=== PATIENT | male | born 1940 | race Caucasian/White ===

== ENCOUNTER → 2016-06-22 | Outpatient (CLI) | payer MEDICARE, BC ==
--- NOTE | 2016-06-22 17:50 | CT ---
EXAMINATION TYPE: CT sinus wo con DATE OF EXAM: 06/22/2016 5:41 PM COMPARISON: November 05, 2010 HISTORY: Facial pain, pressure and congestion CT DLP: 641.[address] of the paranasal sinuses was performed in the axial and coronal planes. Bone and soft tissue settings are submitted. Postoperative changes of medial maxillary antrectomy bilaterally as well as partial ethmoidectomy. Pe rsistent and mucosal thickening involving the maxillary sinuses without evidence for obstruction. Rem aining ethmoid air cells also demonstrate mucosal thickening. Moderate mucosal thickening is seen in the sphenoid and frontal sinuses. The nasal septum is midline. No bony destructive changes are seen within the field of view. IMPRESSION: Stable Chronic pansinusitis as discussed.
== END | disposition home or self-care (01) ==
LOC: RADCTMAIN 17:22
PROVIDERS: ATTEND Otolaryngology
DX: J32.4 Chronic pansinusitis (principal)
CPT/HCPCS: 70486

== ENCOUNTER → 2018-12-09 | Outpatient (CLI) | payer MEDICARE, BC ==
[2018-12-09 09:39] LABS: Basophils # (A) 0.1 k/uL (0-0.2); Basophils % (A) 1 %; Eosinophils # (A) 0.4 k/uL (0-0.7); Eosinophils % (A) 6 %; HCT 42.5 % (39.0-53.0); HGB 14.1 gm/dL (13.0-17.5); Lymphocytes # (A) 1.6 k/uL (1.0-4.8); Lymphocytes % (A) 26 %; MCH 30.8 pg (25.0-35.0); MCHC 33.3 g/dL (31.0-37.0); MCV 92.4 fL (80.0-100.0); Mean Platelet Volume 5.7; Monocytes # (A) 0.5 k/uL (0-1.0); Monocytes % (A) 7 %; Neutrophils # (A) 3.5 k/uL (1.3-7.7); Neutrophils % (A) 57 %; Platelet Count 283 k/uL (150-450); RBC 4.59 m/uL (4.30-5.90); RDW 12.7 % (11.5-15.5); WBC 6.2 k/uL (3.8-10.6)
[2018-12-09 09:42] LABS: INR 0.9 (<1.2); Partial Thromboplastin Time 24.9 sec (22.0-30.0); Prothrombin Time 9.9 sec (9.0-12.0)
[2018-12-09 09:56] LABS: African American GFR (CKD) >90 (>60 ml/min/1.73 sqM); Anion Gap 8 mmol/L; Blood Urea Nitrogen 27 mg/dL (9-20); Calcium 9.5 mg/dL (8.4-10.2); Carbon Dioxide 28 mmol/L (22-30); Chloride 107 mmol/L (98-107); Glucose 120 mg/dL (74-99); Potassium 4.7 mmol/L (3.5-5.1); Sodium 143 mmol/L (137-145)
[2018-12-09 10:37] LABS: Appearance,Urine Clear (Clear); Bilirubin,Urine Negative (Negative); Blood,Urine Negative (Negative); Color,Urine Yellow; Glucose,Urine (UA) Negative (Negative); Ketones,Urine Negative (Negative); Leukocyte Esterase,Urine Trace (Negative); Mucus,Urine Rare /hpf; Nitrite,Urine Negative (Negative); PH, Urine 5.5 (5.0-8.0); Protein,Urine Trace (Negative); RBC,Urine 2 /hpf (0-5); Specific Gravity,Urine 1.024 (1.001-1.035); Urobilinogen,Urine <2.0 mg/dL (<2.0); WBC,Urine 2 /hpf (0-5)
--- NOTE | 2018-12-10 10:14 | XR ---
EXAMINATION TYPE: XR chest 2V DATE OF EXAM: 12/09/2018 COMPARISON: 09/23/2016 HISTORY: Previous spinal surgery. Presurgical evaluation for severe spinal canal stenosis. TECHNIQUE: Frontal and lateral views of the chest are obtained. FINDINGS: There is no focal air space opacity, pleural effusion, or pneumothorax seen. The cardiac silhouette size is within normal limits. The osseous structures are intact. Pulmonary arteries are prominent that can be seen in pulmonary arterial hypertension. Underlying COPD is noted with flatteni ng of the diaphragms on the lateral view and increased anterior posterior diameter of the chest. Biap ical lucency and increased retrosternal airspace also noted. Moderate degenerative changes of the spi ne. IMPRESSION: 1. COPD and enlarged pulmonary artery suggesting pulmonary arterial hypertension. 2. No acute cardiopulmonary process.
== END | disposition home or self-care (01) ==
LOC: LABPAT 08:52
PROVIDERS: ATTEND Orthopaedic Surgery Orthopaedic Surgery of the Spine
DX: Z01.812 Encounter for preprocedural laboratory examination (principal); Z01.818 Encounter for other preprocedural examination; M48.00 Spinal stenosis, site unspecified; J44.9 Chronic obstructive pulmonary disease, unspecified; I77.89 Other specified disorders of arteries and arterioles
CPT/HCPCS: 36415; 71046; 80048; 81001; 85025; 85610; 85730

== ENCOUNTER 2018-12-18 11:14 | Day surgery (SDC) | payer MEDICARE, BC ==
[~2018-12-18 11:14] MED LIST: BACITRACIN 50,000 UNIT, POLYMYXIN B 500,000 UNIT in SODIUM CHLORIDE 0.9% IRRIGATIO 1,00... IRRIGATION ONE; LIDOCAINE 1% 20 ML VIAL (10MG/ML) FOR IV START INTRADERMA PRN; ONDANSETRON 4 MG/2 ML VIAL IVP ONE
[2018-12-18] MEDS: LACTATED RINGERS 1,000 ML IV SCH (12:06)
[2018-12-18] MEDS ORDERED: LIDOCAINE 1% INJ 10MG/ML (20 ML MDV) ONE (13:04)
[2018-12-18] MEDS ORDERED: MIDAZOLAM 2 MG/2 ML VIAL ONE (13:04)
[2018-12-18] MEDS ORDERED: NEOSTIGMINE 1 MG/ML 10 ML VIAL ONE (13:04)
[2018-12-18] MEDS ORDERED: PHENYLEPHRINE-0.9% NACL SYG 1 MG/10 ML SYRINGE ONE (13:04)
[2018-12-18] MEDS ORDERED: SUCCINYLCHOLINE CHLORIDE 100 MG/5 ML SYR IV ONE (13:04)
[2018-12-18] MEDS ORDERED: GLYCOPYRROLATE 0.2 MG/ML 2 ML VIAL ONE (13:04)
[2018-12-18] MEDS ORDERED: PROPOFOL 10 MG/ML 20 ML VIAL IV ONE (13:04)
[2018-12-18] MEDS ORDERED: ROCURONIUM BROMIDE 10 MG/ML 10 ML VIAL IV ONE (13:04)
[2018-12-18] MEDS ORDERED: fentaNYL (PF) 50 MCG/ML 2 ML AMP ONE (13:04)
[2018-12-18] MEDS ORDERED: LIDOCAINE 0.5%-EPI 1:200,000 50 ML VIAL SQ ONE ×2 (13:06)
[2018-12-18] MEDS ORDERED: methylPREDNISolone ACETATE 80 MG/ML 1 ML VIAL INJ ONE (13:06)
[2018-12-18] MEDS ORDERED: GELATIN SPONGE,ABSORB (LARGE) 1 EACH SPONGE TOPICAL ONE (13:06)
[2018-12-18] MEDS ORDERED: BUPIVACAINE (PF) 0.25% 30 ML VIAL SQ ONE (13:06)
[2018-12-18] MEDS ORDERED: THROMBIN (BOVINE) 5,000 UNIT VIAL TOPICAL ONE ×2 (13:07)
[2018-12-18] MEDS ORDERED: LACTATED RINGERS 1,000 ML IV ONE (13:48)
--- NOTE | 2018-12-18 14:07 | XR ---
Fluoroscopy INDICATION: Pain FINDINGS: Fluoroscopy time: 1 seconds. Images obtained: One. IMPRESSIONS: 1. Documentation of fluoroscopy.
[2018-12-18] MEDS ORDERED: KETOROLAC 30 MG/ML 1 ML VIAL IVP PRN (15:12)
[2018-12-18] MEDS ORDERED: HYDROmorphone 1 MG/ML 1 ML SYRINGE IVP PRN (15:12)
[2018-12-18] MEDS ORDERED: HYDROcodone/APAP 5-325MG 1 EACH TAB PO PRN (15:12)
[2018-12-18] MEDS ORDERED: IBUPROFEN 600 MG TAB PO PRN (15:12)
[2018-12-18] MEDS ORDERED: HYDROmorphone 0.5 MG/0.5 ML SYRINGE IVP PRN (15:12)
[2018-12-18] MEDS ORDERED: BENZOCAINE/MENTHOL LOZENG 1 EACH LOZENGE MUCOUS MEM PRN (15:12)
[2018-12-18] MEDS ORDERED: MAGNESIUM HYDROXIDE 2,400 MG/10 ML CUP PO PRN (15:12)
[2018-12-18] MEDS ORDERED: ONDANSETRON 4 MG/2 ML VIAL IVP ONE (15:12)
[2018-12-18] MEDS ORDERED: amLODIPine 2.5 MG TAB PO PRN (15:15)
[2018-12-18] MEDS ORDERED: Acetaminophen-Codeine 300-30mg TAB PO PRN (15:15)
--- NOTE | 2018-12-18 15:21 | P.OP ---
Date of Procedure: 12/18/18 Preoperative Diagnosis: Severe spinal stenosis L2-3 and L3 4 L4 5, neurogenic claudication bilateral lower extremities, lower extremity radiculopathy, facet arthrosis, degenerative disc disease Postoperative Diagnosis: Same Anesthesia: GETA Pathology: none sent Condition: stable Disposition: PACU Description of Procedure: DESCRIPTION OF PROCEDURE(S): BRIEF OPERATIVE NOTE Preoperative Diagnosis: Severe spinal stenosis L2-3 and L3 4 L4 5, neurogenic claudication bilateral lower extremities, lower extremity radiculopathy, facet arthrosis, degenerative disc disease Postoperative Diagnosis: Same Procedure: Laminectomy and decompression bilaterally with wide bilateral foraminotomy and partial medial facetectomy L2-3 L3 4 L4 5 Placement of interlaminar stabilized device (Coflex device L3 4 L4 5) Use of fluoroscopic guidance Surgeon: Dr. Parham Manager Vehicle: Jefferson SAPP who is present throughout the entire the case persistence during positioning, dissection, exposure, visualization, and all crucial elements of the case as well as closure. Anesthesia: General anesthesia Estimated blood loss: Approximately 200 mL Complications: None apparent Components implanted: Paradigm Coflex interlaminar stabilization device at L3 4 and L4 5 size 10 Disposition: To recovery room in good stable condition. OPERATIVE INDICATIONS The patient has been having issues in their lower back and lower extremities. The patient was having evidence of neurogenic claudication and spinal stenosis along with issues with lower extremity radiculopathy. The patient was having worsening trouble at his back and lower extremities particularly in his lower extremity is with neurogenic claudication where he was having great difficulty with any walking more than a follow-up few moments at the time. He was having to bend forward sit and lean forward more and more and this was causing him severe debility. The patient was found to have severe spinal stenosis at L2-3 L3 4 and L4 5 which correlated well with their low back and lower extremity symptoms. The patient has been through conservative treatment. Despite going through conservative treatment the patient was not having any lasting benefit and was having worsening of his symptoms and worsening debility. With their imaging, and the level of their stenosis and their propensity for the possibility of recurrent stenosis I felt that decompression with intralaminar stabilization would be a good benefit for the patient. We discussed various treatment options including surgery, and the patient wishes to proceed with surgery We discussed the risk, patient's alternatives and benefits of surgery including but not limited to, risk of bleeding risk of infection, risk of need for further surgery, risk of decreased, loss of motion, loss of function, nerve damage, paralysis, heart attack, blindness and . OPERATIVE SUMMARY After discussing all the risks, patient alternatives and benefits at length, the patient elected to proceed with surgical intervention, signed informed consent, and presented for their procedure. The patient was seen and examined in the preoperative holding area and the surgical site was marked. The patient was given antibiotics and brought to the operating room. The patient was sedated and intubated by anesthesia in standard fashion. The patient was positioned on to the operating room table in a prone position on the appropriate frame which was well-padded and well molded. We were careful to pad any bony prominences and pressure points. We were careful to maintain the patient's cervical spine and good neutral alignment and position throughout. The patient was prepped and draped in a normal standard fashion. An appropriate timeout and keystone protocol performed. We were able to proceed with the surgery. Fluoroscopy was utilized to establish the appropriate level. The local wound area was infiltrated with local anesthetic. An incision was made at the midline longitudinally over the appropriate levels at L23 L3 4 and L4 5. Dissection was taken down subcutaneously to the level of the fascia which was split midline. Dissection was taken over the lamina. Intraoperative fluoroscopy was taken which showed a marker at the appropriate level at L3 4. With the appropriate level positively confirmed, we were able to proceed with laminectomy. The wound was copiously irrigated and suctioned dry as had been done periodically throughout the case. I performed a laminectomy with a combination of curettes and a high-speed bur and Kerrison rongeurs. A small medial facetectomy was performed again further access. This was done bilaterally at that level. A partial foraminotomy was also performed. Portions of the ligamentum flavum were taken down to expose the dura and traversing nerve root. The patient was found to have severe central and bilateral foraminal stenosis with severe thickening of the ligamentum and thickening of the capsule around the facet joints. All this was remedied with the decompression centrally and at the bilateral neural foramen. There is no evidence of extruded disc herniation. There is no evidence of dural tear or leak. Good hemostasis maintained. The wound was copiously irrigated and suctioned dry. Good decompression was noted. At this point further prepared the interspinous process and interlaminar space with a combination of curettes and a high-speed bur and Kerrison rongeurs. I prepared for placement of the interlaminar to basis at L4 5 and L3 4. I was able get good parallel alignment at the interspinous process space and interlaminar space. I used a trial spacer for the Coflex device and have good fit and fill with the appropriate size device. I had to shave down the spinous process at to allow for appropriate positioning of the Coflex device. The device was prepared and then positioned and malleted in position with good alignment and good position and good bony purchase at the interlaminar space. The position was checked and found to be approximately 3 mm away from the dura without impingement on the dura itself. It was checked and found to be stable. Intraoperative C-arm was utilized to confirm the alignment and position at the appropriate levels at L4 5 and then at L3 4. We were able to proceed with closure. The fascia was closed for a watertight closure. The subcuticular tissue was closed with absorbable suture. The wound was cleaned and dried and dressed with the appropriate dressing. The drapes were broken down. The patient was gently rolled back onto their hospital bed being careful to maintain their cervical spine and good neutral alignment and position. They were woken up by anesthesia, extubated, and brought to the recovery room in good stable condition. The patient will be admitted to the hospital for observation and for appropriate postoperative care, medical management and monitoring. We will continue to follow them closely about the postoperative course
[2018-12-18] MEDS: HYDROmorphone 0.5 MG/0.5 ML SYRINGE IVP PRN ×2 (15:46→16:07)
[2018-12-18] MEDS ORDERED: KETOROLAC 30 MG/ML 1 ML VIAL IVP ONE (15:50)
[2018-12-18] MEDS ORDERED: SODIUM CHLORIDE 0.9% 1,000 ML IV ONE (17:07)
[2018-12-18] MEDS: SODIUM CHLORIDE 0.9% 1,000 ML IV SCH (18:19)
[2018-12-18] MEDS: HYDROcodone/APAP 5-325MG 1 EACH TAB PO PRN ×2 (18:45→23:51)
[2018-12-18 19:01] VITALS: BMI 27.6
[2018-12-18] MEDS: LABETALOL 200 MG TAB PO SCH (20:08)
[2018-12-18] MEDS ORDERED: ATORVASTATIN 40 MG TAB PO SCH (21:00)
[2018-12-19] MEDS: LACTATED RINGERS 1,000 ML IV SCH (04:20)
[2018-12-19] MEDS: SODIUM CHLORIDE 0.9% 1,000 ML IV SCH (05:18)
[2018-12-19 07:56] VITALS: RESP 18
[2018-12-19] MEDS: LABETALOL 200 MG TAB PO SCH (08:26)
[2018-12-19] MEDS ORDERED: TAMSULOSIN 0.4 MG CAP.ER.24H PO SCH (09:00)
[2018-12-19] MEDS ORDERED: amLODIPine 5 MG TAB PO SCH (09:00)
[2018-12-19] MEDS ORDERED: SENNOSIDES-DOCUSATE SODIUM 1 EACH TAB PO SCH (09:00)
[2018-12-19] MEDS: HYDROcodone/APAP 5-325MG 1 EACH TAB PO PRN (09:47)
[2018-12-19 11:36] VITALS: BP 134/63
[2018-12-19 11:40] VITALS: TEMP 97.8
[2018-12-19 12:47] VITALS: PULSE 66
--- NOTE | 2018-12-19 13:00 | P.DS ---
Providers Date of admission: 12/18/2018 Expected date of discharge: 12/19/18 Attending physician: Kath Parham Primary care physician: Nikko Sultana - Discharge Diagnosis(es) (1) Lumbar spinal stenosis Current Visit: Yes Status: Acute (2) Neurogenic claudication due to lumbar spinal stenosis Current Visit: Yes Status: Acute (3) Radiculopathy with lower extremity symptoms Current Visit: Yes Status: Acute (4) Low back pain Current Visit: Yes Status: Acute (5) Lumbar facet arthropathy Current Visit: Yes Status: Acute Hospital Course: This is a pleasant 77-year-old male who presented with L2-3, L3-4, and L4-5 severe spinal canal stenosis, neurogenic claudication of the bilateral lower extremities, lumbar facet arthrosis, lumbar degenerative disc disease, and lower extremity radiculopathy who failed outpatient conservative therapy. He was admitted for L2-3, L3-4, and L4-5 laminectomy and decompression with placement of interlaminar stabilization device at L3-4 and L4-5. The patient tolerated the procedure well and did well postoperatively. He's had significant improvement of his lower extremity radiculopathy symptoms. He's been able to cannulate the hallway in the restroom. He does have some pain at the surgical site the states pain is significantly improved as compared to his pain prior to surgical intervention. He is very happy with his progress postoperatively. He is ready for discharge. Condition on day of discharge stable. Patient will be discharged home. Patient was cleared preoperatively for surgery by Dr. Sultana. Patient currently denies any nausea, vomiting, fever, or chills. Patient is eating and voiding freely without difficulty. Patient may shower Tegaderm and silver dressing intact. Patient may remove Tegaderm and silver dressing in 3 days and shower without a dressing at that time. Patient should refrain from driving until at least after their first follow-up appointment in the office. Patient should avoid excessive bending, lifting, and twisting; no lifting greater than 10 pounds. MAPS has been reviewed today, 12/19/2018, with an Overall Overdose Risk Score of 200. An "Opiod Start Talking" Forn has been signed by the patient and myself in place in the patient's chart. A prescription has been written for Hernandez 5 mg/325 mg 1-2 tabs every 6 hours as needed for pain, dispensed #56. Patient should avoid anti-inflammatories over the next 6 weeks postoperatively. Patient should discontinue previously prescribed Tylenol #3 with codeine. Patient may resume other previously prescribed home medications. Physical Exam on day of discharge: Patient is awake, alert, and oriented 3 Vital signs stable Good chest excursion with deep inspiration and expiration Abdomen soft nontender No signs or symptoms of DVT; no calf pain Extensor hallucis longus, plantarflexion, and dorsiflexion positive sustained left lower extremity Reduced range of motion with dorsiflexion and plantarflexion on the right following previous ankle fusion Incision is clean, dry, and intact; no erythema, purulence, or signs of infection Tegaderm and silver dressing remains intact with 1 small dried spot of blood No active drainage from the incision site Procedures: L2-3, L3-4, and L4-5 laminectomy and decompression with placement of interlaminar stabilization device at L3-4 and L4-5. Patient Condition at Discharge: Stable Plan - Discharge Summary Discharge Rx Participant: Yes New Discharge Prescriptions: New Hydrocodone/Acetaminophen [Hernandez 5-325] 1 - 2 each PO Q6HR PRN #56 tab PRN Reason: Pain No Action Acetaminophen-Codeine 300-30mg [Tylenol w/codeine #3] 1 tab PO Q6H PRN PRN Reason: Pain Tamsulosin HCl [Flomax] 0.4 mg PO DAILY Simvastatin [Zocor] 80 mg PO HS Labetalol [Trandate] 200 mg PO BID Ibuprofen [Motrin] 800 mg PO DAILY PRN PRN Reason: Pain amLODIPine [Norvasc] 2.5 mg PO BID PRN PRN Reason: bp >160/90 amLODIPine [Norvasc] 5 mg PO DAILY Discharge Medication List Acetaminophen-Codeine 300-30mg [Tylenol w/codeine #3] 1 tab PO Q6H PRN 12/08/18 [History] Ibuprofen [Motrin] 800 mg PO DAILY PRN 12/08/18 [History] Labetalol [Trandate] 200 mg PO BID 12/08/18 [History] Simvastatin [Zocor] 80 mg PO HS 12/08/18 [History] Tamsulosin HCl [Flomax] 0.4 mg PO DAILY 12/08/18 [History] amLODIPine [Norvasc] 2.5 mg PO BID PRN 12/08/18 [History] amLODIPine [Norvasc] 5 mg PO DAILY 12/08/18 [History] Hydrocodone/Acetaminophen [Hernandez 5-325] 1 - 2 each PO Q6HR PRN #56 tab 12/19/18 [Rx] Follow up Appointment(s)/Referral(s): Jefferson Alvarenga, RACHNA [PHYSICIAN WASTE TREATMENT OPERATOR] - 2 Weeks (Patient may follow-up with Jefferson Alvarenga PA-C or Dr. Jose Parham at [facility] in 2-3 weeks following discharge. ) Activity/Diet/Wound Care/Special Instructions: 1. Patient may shower with Tegaderm and silver dressing intact. 2. Patient may remove Tegaderm and silver dressing in 3 days and shower without a dressing at that time. 3. Patient should keep Steri-Strips intact and allow them to fall off naturally. 4. Patient should refrain from driving until at least after their first follow- up appointment in the office. 5. Patient should avoid excessive bending, twisting, and lifting; no lifting greater than 10 pounds 6. Take medications as prescribed 7. Do not soak in tub Discharge Disposition: HOME SELF-CARE
== END 2018-12-19 13:35 | disposition home or self-care (01) ==
LOC: OR 11:14 → 4MS4W 17:20 → 3NMEDONC 17:48 → OR 12-19 13:35
PROVIDERS: ATTEND Orthopaedic Surgery Orthopaedic Surgery of the Spine
DX: M48.062 Spinal stenosis, lumbar region with neurogenic claudication (principal); M51.16 Intervertebral disc disorders with radiculopathy, lumbar region; M47.16 Other spondylosis with myelopathy, lumbar region; M41.26 Other idiopathic scoliosis, lumbar region; M43.16 Spondylolisthesis, lumbar region; M70.61 Trochanteric bursitis, right hip; M16.0 Bilateral primary osteoarthritis of hip; M47.27 Other spondylosis with radiculopathy, lumbosacral region; I10 Essential (primary) hypertension; E78.5 Hyperlipidemia, unspecified; N40.0 Benign prostatic hyperplasia without lower urinary tract symptoms; K30 Functional dyspepsia; Z87.891 Personal history of nicotine dependence; Z90.49 Acquired absence of other specified parts of digestive tract; Z79.891 Long term (current) use of opiate analgesic; Z79.899 Other long term (current) drug therapy
CPT/HCPCS: 97162; 72020; 63047; C1713; J2250; J1040; J2710; J0690 ×2; J2405; J2001; J3010; J1885; J2370; J0330; J2704; J1170; 86850; 86900; 86901

== ENCOUNTER → 2018-12-28 | Outpatient (CLI) | payer MEDICARE, BC ==
--- NOTE | 2018-12-28 15:01 | XR ---
EXAMINATION TYPE: XR chest 2V DATE OF EXAM: 12/28/2018 COMPARISON: 12/09/2018 HISTORY: Shortness of breath TECHNIQUE: Frontal and lateral views of the chest are obtained. FINDINGS: Scattered senescent parenchymal changes noted. Hyperinflation compatible with COPD. No evidence for infiltrate. No evidence for atelectasis. Heart size is stable. Mediastinal structures are stable and grossly unremarkable. No evidence for hilar prominence. Degenerative changes dorsal spine. IMPRESSION: 1. No evidence for acute pulmonary disease.
== END | disposition home or self-care (01) ==
LOC: LABWHC1 13:15
PROVIDERS: ATTEND Nurse Practitioner Family
DX: J40 Bronchitis, not specified as acute or chronic (principal)
CPT/HCPCS: 71046

== ENCOUNTER → 2019-06-25 | Outpatient (CLI) | payer MEDICARE, BC ==
[2019-06-25 11:25] LABS: African American GFR (CKD) >90 (>60 ml/min/1.73 sqM); Anion Gap 10 mmol/L; Blood Urea Nitrogen 17 mg/dL (9-20); Carbon Dioxide 22 mmol/L (22-30); Chloride 108 mmol/L (98-107); Non-African American GFR(CKD) 81 (>60 ml/min/1.73 sqM); Potassium 4.7 mmol/L (3.5-5.1); Sodium 140 mmol/L (137-145)
[2019-06-25 11:29] LABS: HCT 44.7 % (39.0-53.0); HGB 13.9 gm/dL (13.0-17.5); Hypochromasia Slight; MCH 29.2 pg (25.0-35.0); MCHC 31.2 g/dL (31.0-37.0); MCV 93.7 fL (80.0-100.0); Mean Platelet Volume 7.5; Platelet Count 231 k/uL (150-450); RBC 4.78 m/uL (4.30-5.90); RDW 13.9 % (11.5-15.5); WBC 7.3 k/uL (3.8-10.6)
== END | disposition home or self-care (01) ==
LOC: LABWHC1 09:48
PROVIDERS: ATTEND Internal Medicine Interventional Cardiology
DX: Z01.818 Encounter for other preprocedural examination (principal); R94.39 Abnormal result of other cardiovascular function study; R97.20 Elevated prostate specific antigen [PSA]
CPT/HCPCS: 36415; 80051; 82565; 84153; 84520; 85027

== ENCOUNTER → 2021-10-14 | Outpatient (CLI) | payer MEDICARE, BC ==
--- NOTE | 2021-10-14 11:10 | US ---
EXAMINATION TYPE: US venous doppler duplex LE LT DATE OF EXAM: 10/14/2021 10:57 AM COMPARISON: NONE CLINICAL HISTORY: 80-year-old male I80.9 Phlebitis and thrombophlebitis of unspecifie. LEFT knee surg jaylin with new left post calf pain SIDE PERFORMED: left TECHNIQUE: The lower extremity deep venous system is examined utilizing real time linear array sonog dayan with graded compression, doppler sonography and color-flow sonography. VESSELS IMAGED: Common Femoral Vein Deep Femoral Vein Greater Saphenous Vein * Femoral Vein Popliteal Vein Small Saphenous Vein * Proximal Calf Veins (* superficial vessels) Left Leg: Negative for left lower extremity DVT imaged from the groin to the upper calf. Within the left pop fossa there is a 5.9 x 3.1 x 1.7cm mildly complex Jackson's cyst. Scanned the medial posterior left calf at the patient's area of pain, there is a 12.0 x 2.5 x 3.9cm probable intramuscular elongated fluid collection, that may be located along an intramuscular fascial plane. IMPRESSION: 1. No evidence for DVT within the left lower extremity imaged from the groin to the upper calf. 2. A moderate sized 5.9 x 3.1 cm Jackson's cyst. 3. However, in addition, further scanning at the patient's pain lower down along the medial posterior calf shows a second 12.0 x 3.9 x 2.5 cm elongated fluid collection that may be intramuscular or loca vik along an intramuscular fascial plane. This could represent sequela of a previously ruptured Jackson cyst or a hematoma. Clinically correlate to exclude infective fluid. If further imaging assessment i s desired, MRI can be considered.
== END | disposition home or self-care (01) ==
LOC: RADUSWWP 10:34
PROVIDERS: ATTEND Orthopaedic Surgery
DX: I80.9 Phlebitis and thrombophlebitis of unspecified site (principal)

== ENCOUNTER → 2022-05-17 | Outpatient (CLI) | payer MEDICARE ==
[2022-05-17 14:39] LABS: HCT 43.9 % (39.6-50.0); HGB 13.3 g/dL (13.0-17.0); MCH 27.5 pg (27.0-32.0); MCHC 30.3 g/dL (32.0-37.0); MCV 90.9 fL (80.0-97.0); Mean Platelet Volume 10.3 fL (9.5-12.2); NRBC Per 100 WBC 0 /100 WBCS (0.0-0.0); Platelet Count 239 X 10*3/uL (140-440); RBC 4.83 X 10*6/uL (4.40-5.60); RDW 14.6 % (11.5-14.5); WBC 14.44 X 10*3/uL (4.50-10.00)
[2022-05-17 16:08] LABS: African American GFR (CKD) 64.9 (60.0-200.0); Anion Gap 14.5 mmol/L (10.00-18.00); Blood Urea Nitrogen 22.1 mg/dL (9.0-27.0); Carbon Dioxide 25.5 mmol/L (20.0-27.5); Potassium 4.5 mmol/L (3.5-5.5)
== END | disposition home or self-care (01) ==
LOC: LABPAT 09:58
PROVIDERS: ATTEND Internal Medicine Clinical Cardiac Electrophysiology
DX: Z01.812 Encounter for preprocedural laboratory examination (principal); I48.19 Other persistent atrial fibrillation
CPT/HCPCS: 80051; 82565; 84520; 85027

== ENCOUNTER 2022-07-27 08:46 | Day surgery (SDC) | payer MEDICARE ==
[2022-07-22 11:08] VITALS: BMI 27.8
[2022-07-27] MEDS ORDERED: LACTATED RINGERS 1,000 ML IV ONE (09:41)
[2022-07-27 09:49] VITALS: TEMP 97.7
[2022-07-27] MEDS ORDERED: LIDOCAINE 2% INJ 20 MG/ML (2 ML VIAL) ONE (10:20)
[2022-07-27] MEDS ORDERED: PROPOFOL 10 MG/ML 20 ML VIAL IV ONE (10:20)
[2022-07-27 10:24] LABS: Calcium 9.2 mg/dL (8.4-10.2); Potassium 4.5 mmol/L (3.5-5.1)
[2022-07-27 10:28] VITALS: RESP 16
[2022-07-27] MEDS ORDERED: hydrALAZINE HCL 25 MG TAB PO STA (12:51)
[2022-07-27 13:39] VITALS: BP 153/79; PULSE 65
--- NOTE | 2022-07-28 01:02 | ECHOT ---
TRANSESOPHAGEAL ECHOCARDIOGRAM INDICATIONS: Persistent atrial fibrillation. PROCEDURE: Transesophageal echo. INDICATIONS: Persistent atrial fibrillation to rule out intracardiac thrombus. DESCRIPTION OF PROCEDURE: After obtaining informed consent, transesophageal echocardiogram was performed in left lateral position using an Omniplane probe. Local and IV sedation were obtained by the magazine grinder loader. The patient tolerated the procedure well without any obvious immediate complications. FINDINGS: 1. There is no intracardiac thrombus within the left atrial appendage, left atrium, right atrium, right ventricle, or left ventricle. 2. Left ventricle has normal size and systolic function. 3. Left atrium appears moderate to severely enlarged. 4. Right atrium appears enlarged. 5. Interatrial septum, there is no evidence of mboh-rk-orrex shunt by color-flow Doppler or [id number]-[id number] shunt by agitated saline contrast study. 6. Mitral valve shows mitral annular calcification with mild central mitral regurgitation. 7. Tricuspid valve shows moderate tricuspid regurgitation. 8. Aortic valve is a 3-leaflet valve, there is no evidence of aortic stenosis or regurgitation. 9. Aortic root measures within normal limits. CONCLUSION: 1. No intracardiac thrombus. 2. Normal LV systolic function. 3. Mild mitral and moderate tricuspid regurgitation. PLAN: The patient will undergo cardioversion. MMODL / IJN: [id number] /
--- NOTE | 2022-07-28 08:15 | PCN ---
PROCEDURE NOTE Cardioversion Note. INDICATIONS: Persistent atrial fibrillation. PROCEDURE NOTE: After obtaining informed consent, cardioversion was performed with 150 joules of synchronized DC current. He converted to sinus rhythm following a single shock. The patient was sedated by the spot billing clerk. An intracardiac thrombus was ruled out by transesophageal echo and the patient is adequately anticoagulated by Eliquis. PLAN: The patient will continue the anticoagulant and will have followup with Dr. ALEXEY Hickey, his primary principal consulting engineer. MMODL / IJN: [id number] /
== END 2022-07-27 14:00 | disposition home or self-care (01) ==
LOC: OR 08:46
PROVIDERS: ATTEND Internal Medicine Cardiovascular Disease
DX: I48.19 Other persistent atrial fibrillation (principal); I08.1 Rheumatic disorders of both mitral and tricuspid valves; I10 Essential (primary) hypertension; E78.5 Hyperlipidemia, unspecified; N40.0 Benign prostatic hyperplasia without lower urinary tract symptoms; Z86.73 Personal history of transient ischemic attack (TIA), and cerebral infarction without residual deficits; Z79.899 Other long term (current) drug therapy; Z79.01 Long term (current) use of anticoagulants
CPT/HCPCS: 93312; 93320; 93325; 92960; 80048; J2704; J2001

== ENCOUNTER → 2022-08-20 | Outpatient (CLI) | payer MEDICARE ==
[2022-08-20 21:38] LABS: HCT 47.1 % (39.6-50.0); HGB 13.5 d/dL (12.0-15.0); MCH 26.1 pg (27.0-32.0); MCHC 28.7 d/dL (32.0-37.0); MCV 90.9 FL (80.0-97.0); Mean Platelet Volume 11.1 FL (9.5-12.2); NRBC Per 100 WBC 0 X 10*3/uL (0.00-0.01); Platelet Count 254 X 10*3/uL (140-440); RBC 5.18 X 10*6/uL (4.40-5.60); RDW 15.8 % (11.5-14.5); WBC 8.98 X 10*3/uL (4.50-10.00)
[2022-08-20 22:45] LABS: Blood Urea Nitrogen 22.2 mg/dL (9.0-27.0); Chloride 107 mmol/L (96-109); Potassium 4.9 mmol/L (3.5-5.5); Sodium 145 mmol/L (135-145)
== END | disposition home or self-care (01) ==
LOC: LABPAT 10:46
PROVIDERS: ATTEND Internal Medicine Clinical Cardiac Electrophysiology
DX: Z01.812 Encounter for preprocedural laboratory examination (principal); I48.19 Other persistent atrial fibrillation
CPT/HCPCS: 36415; 80051; 82565; 84520; 85027

== ENCOUNTER 2022-08-23 12:11 | Day surgery (SDC) | payer MEDICARE ==
[~2022-08-23 12:11] MED LIST changes: -BACITRACIN 50,000 UNIT, POLYMYXIN B 500,000 UNIT in SODIUM CHLORIDE 0.9% IRRIGATIO 1,00... IRRIGATION ONE; +CLINDAMYCIN 900 MG in DEXTROSE 5% IN WATER 50 ML IVPB PRN; +HYDROmorphone 0.5 MG/0.5 ML SYRINGE IVP PRN; +LACTATED RINGERS 1,000 ML IV SCH; -LIDOCAINE 1% 20 ML VIAL (10MG/ML) FOR IV START INTRADERMA PRN; +MIDAZOLAM 2 MG/2 ML VIAL IV PRN; +SODIUM CHLORIDE 0.9% 1,000 ML IV SCH
[2022-08-23 13:20] LABS: Basophils % (A) 0 %; Eosinophils # (A) 0.4 k/uL (0-0.7); Eosinophils % (A) 5 %; Lymphocytes # (A) 1.9 k/uL (1.0-4.8); Lymphocytes % (A) 22 %; MCH 27.5 pg (25.0-35.0); MCHC 31.8 g/dL (31.0-37.0); MCV 86.6 fL (80.0-100.0); Mean Platelet Volume 8.1; Monocytes # (A) 0.8 k/uL (0-1.0); Monocytes % (A) 9 %; Neutrophils # (A) 5.3 k/uL (1.3-7.7); Neutrophils % (A) 62 %; Platelet Count 209 k/uL (150-450); RBC 5.08 m/uL (4.30-5.90); RDW 15.1 % (11.5-15.5); WBC 8.6 k/uL (3.8-10.6)
[2022-08-23] MEDS ORDERED: PHENYLEPHRINE-0.9% NACL SYG 1,000 MCG/10 ML SYRINGE ONE (15:15)
[2022-08-23] MEDS ORDERED: HEPARIN SODIUM,PORCINE 10,000 UNIT/ML 1 ML VIAL ONE (15:15)
[2022-08-23] MEDS ORDERED: ROCURONIUM 10 MG/ML (5 ML VIAL) IV ONE (15:15)
[2022-08-23] MEDS ORDERED: PROPOFOL 10 MG/ML 20 ML VIAL IV ONE (15:15)
[2022-08-23] MEDS ORDERED: NEOSTIGMINE 1 MG/ML 10 ML VIAL ONE (15:15)
[2022-08-23] MEDS ORDERED: LIDOCAINE 2% INJ 20 MG/ML (2 ML VIAL) ONE (15:15)
[2022-08-23] MEDS ORDERED: PROTAMINE SULFATE 10 MG/ML 5 ML VIAL IV ONE (15:15)
[2022-08-23] MEDS ORDERED: SUCCINYLCHOLINE CHLORIDE 200 MG/10 ML VIAL IV ONE (15:15)
[2022-08-23] MEDS ORDERED: fentaNYL (PF) 50 MCG/ML 2 ML AMP ONE (15:15)
[2022-08-23] MEDS ORDERED: GLYCOPYRROLATE 0.2 MG/ML 2 ML VIAL ONE (15:15)
[2022-08-23] MEDS ORDERED: LIDOCAINE 1% INJ 10MG/ML (20 ML MDV) ONE (15:28)
[2022-08-23] MEDS ORDERED: HEPARIN SOD,PORK IN 0.45% NACL 25,000 UNIT in 0.45% NACL 1 250ML.BAG IV ONE (15:45)
[2022-08-23] MEDS ORDERED: LIDOCAINE 1% INJ 10MG/ML (30 ML VIAL-PF) SQ ONE (15:45)
[2022-08-23] MEDS ORDERED: HEPARIN SODIUM 1,000 UN/ML (10ML VL) ONE (15:45)
[2022-08-23] MEDS ORDERED: IOPAMIDOL-370 100ML BTL INJ ONE (17:43)
[2022-08-23] MEDS ORDERED: LACTATED RINGERS 1,000 ML IV ONE (17:55)
[2022-08-23] MEDS ORDERED: SODIUM CHLORIDE 0.9% 1,000 ML IV ONE (17:55)
[2022-08-23] MEDS ORDERED: HEPARIN SODIUM (1,000 UNIT/ML) 1,000 UNIT in SODIUM CHLORIDE 0.9% 1,000 ML IRRIGATION ONE (18:09)
[2022-08-23] MEDS ORDERED: hydrALAZINE HCL 25 MG TAB PO PRN (19:21)
[2022-08-23] MEDS ORDERED: ACETAMINOPHEN TAB 325 MG TAB PO PRN (19:23)
--- NOTE | 2022-08-23 19:31 | P.EPPROC ---
- EP Procedure Note Electrophysiology Procedure Note: PROCEDURE A. fib ablation with pulmonary vein isolation and left atrial roof ablation, termination of atrial fibrillation Transitioning to typical atrial flutter Typical atrial flutter ablation to sinus rhythm successfully DIAGNOSIS Persistent Atrial fibrillation, symptomatic, refractory to therapy RESULT No left atrial appendage mass seen on intracardiac echo Preserved LV size and function, prominent pericardial strength Successful A. fib ablation/pulmonary vein isolation of all veins using cryo- ablation Complete entrance block in all 4 veins confirmed Linear ablation in the left atrial roof.. This resulted in termination of atrial fibrillation transitioning to typical atrial flutter No evidence for phrenic nerve injury Esophageal deflection YES Ablation for typical atrial flutter, long isthmus, long RF line made, bidirectional block proven Termination of atrial fibrillation followed by termination of atrial flutter to sinus rhythm PROCEDURE DETAILS Written informed consent prior to procedure. Patient brought to the EP lab. General anesthesia given. Heparin administered. A city maintained above 300 seconds Both groins prepped and draped per protocol and venous sheaths placed. Esophagus intubated, circa catheter for temperature monitoring an endoscope for possible esophageal deflection. Phrenic nerve monitoring performed. Esophageal temperature monitoring performed. Esophageal deflection performed if circa catheter overlapping with the balloon or circa temperature less than 27.5C Intracardiac echocardiography performed. Pericardium evaluated. Left atrial appendage evaluated. Left atrium evaluated along with pulmonary veins Transseptal catheterization performed under fluoroscopic guidance and intracardiac echo guidance Cryoablation sheath exchanged, balloon catheter along with achieve catheter placed in the left atrium. Pulmonary veins isolated in the following sequence: Left superior pulmonary vein followed by left inferior pulmonary vein, followed by right inferior pulmonary vein and lastly right superior pulmonary vein. Phrenic nerve stimulation along with capture thresholds within the SVC and right superior pulmonary vein to identify the phrenic nerve proximity to the cryo- balloon. Pulmonary veins isolated and confirmed with entrance and exit block. Phrenic nerve integrity confirmed at the end of the procedure Ablation of the left atrial roof performed with sequential lesions from the left superior to the right superior pulmonary veins. Ablation of the electrograms confirmed Once the left atrial roof was ablated, atrial fibrillation terminated and transitioned to typical atrial flutter RF ablation was performed and atrial flutter was terminated Bidirectional block was proven Isthmus conduction time greater than 176 ms The patient had a very long isthmus requiring a long RF lesion 2 different sheaths had to be used to complete this line Good contact force and power used Diagnostic catheters for the high right atrium, His bundle, coronary sinus placed. LA and RA pressures recorded RA pressure: 25/12/20 LA pressure: 38/10/24 Diagnostic EP study with coronary sinus pacing and recording Baseline measurements: Sinus cycle length 790 ms, TX interval 189 ms, QRS 97 ms and QT 328 ms H 50 ms and HV 67 ms Venous sheaths were removed and hemostasis assured with a closure device. Patient extubated and transferred to recovery Increase procedural time During ablation multiple attempts had to be made to move the esophagus a safe distance of the from the pulmonary vein draining cryoablation, to avoid excessive thermal cooling of the esophagus This took extra time and effort to keep the esophagus a safe distance away from the cryoablation balloon. Multiple attempts needed for successful cryoablation isolation of the right superior pulmonary vein and left inferior pulmonary veins Large right-sided pulmonary veins Typical atrial flutter ablation was performed once the patient transition from atrial fibrillation to atrial flutter Cavo tricuspid isthmus was very long and a very long linear ablation using RF was performed successfully PROCEDURES PERFORMED Diagnostic EP study CS pacing and recording Left and right transseptal catheterization Catheter and 3-D mapping of the tachycardia Intracardiac echocardiography Pulmonary vein isolation with transseptal and comprehensive EPS, [id number] Extended procedure duration Left atrial roof line, +[id number] Linear ablation, cavo tricuspid right atrium atrium, [id number]
--- NOTE | 2022-08-23 19:33 | P.PRLE ---
RE: Mejia Corona Dear Dr. [address] Ba from underwent an A. fib ablation with pulmonary vein isolation and linear ablation left atrial roof This resulted in termination of atrial fibrillation and transitioning to typical atrial flutter Subsequently he underwent successful typical atrial flutter ablation to sinus rhythm Hopefully this results in long-term freedom from atrial fibrillation His left and right atrial pressures are significantly enlarged even the presence of a fairly preserved LV systolic function on intracardiac echo The left atrium is enlarged The pericardium was mildly thickened suggestive of a prior pericarditis. He will continue anticoagulation and his cardiac medications as before and will follow with you and Dr. Hiceky Thank you for entrusting me with the care of the patient Warm regards Sincerely Steve Milligan
[2022-08-23] MEDS ORDERED: TAMSULOSIN 0.4 MG CAP.ER.24H PO SCH (21:00)
[2022-08-23] MEDS ORDERED: ATORVASTATIN 80 MG TAB PO SCH (21:00)
[2022-08-23] MEDS ORDERED: ACETAMINOPHEN IV (For NPO) 1,000 MG in EMPTY BAG 1 BAG IVPB ONE (21:00)
[2022-08-23] MEDS ORDERED: LOSARTAN 50 MG TAB PO SCH (21:00)
[2022-08-23] MEDS: APIXABAN 5 MG TAB PO SCH (21:28)
[2022-08-23] MEDS: METOPROLOL TARTRATE 25 MG TAB PO SCH (21:30)
[2022-08-24 07:54] VITALS: RESP 16
[2022-08-24] MEDS: METOPROLOL TARTRATE 25 MG TAB PO SCH (07:57)
[2022-08-24] MEDS: APIXABAN 5 MG TAB PO SCH (07:58)
[2022-08-24] MEDS ORDERED: CLOPIDOGREL 75 MG TAB PO SCH (09:00)
[2022-08-24] MEDS ORDERED: FUROSEMIDE 20 MG TAB PO SCH (09:00)
[2022-08-24 14:02] VITALS: BP 91/56; PULSE 64; TEMP 97.9
--- NOTE | 2022-08-24 17:54 | P.DS ---
Providers Attending physician: Steve Milligan Primary care physician: [facility] Course: Patient is doing well. No chest discomfort no dizziness no lightheadedness No undue shortness of breath He walked around the floor in the hallways with his . He is breathing well. His feels he is breathing a lot better now No dizziness No sore throat. His groins of healed well no pain no hematoma On examination is normal heart sounds normal S1 normal S2 Lungs no rhonchi no crackles Afebrile Blood pressure 139/68 mmHg Impression Persistent atrial fibrillation Termination of atrial fibrillation during ablation of the left atrial roof and transition to typical atrial flutter Successful ablation for typical atrial flutter with termination sinus rhythm Plan Continue anticoagulation lifelong Continue metoprolol tartrate 75 mg twice daily Continue losartan Follow-up with Dr. Hickey in 1-2 weeks Plan - Discharge Summary Discharge Rx Participant: No New Discharge Prescriptions: Continue Tamsulosin HCl [Flomax] 0.4 mg PO HS Atorvastatin [Lipitor] 80 mg PO HS Furosemide [Lasix] 20 mg PO DAILY Clopidogrel [Plavix] 75 mg PO DAILY Metoprolol Tartrate [Lopressor] 75 mg PO BID hydrALAZINE HCL [Apresoline] 25 mg PO TID PRN PRN Reason: BP GREATER THAN 150/88 Apixaban [Eliquis] 5 mg PO BID Losartan Potassium 50 mg PO HS Discharge Medication List Tamsulosin HCl [Flomax] 0.4 mg PO HS 12/08/18 [History] Apixaban [Eliquis] 5 mg PO BID 04/07/22 [History] Atorvastatin [Lipitor] 80 mg PO HS 04/07/22 [History] Metoprolol Tartrate [Lopressor] 75 mg PO BID 04/07/22 [History] hydrALAZINE HCL [Apresoline] 25 mg PO TID PRN 04/07/22 [History] Clopidogrel [Plavix] 75 mg PO DAILY 07/22/22 [History] Furosemide [Lasix] 20 mg PO DAILY 07/22/22 [History] Losartan Potassium 50 mg PO HS 07/22/22 [History] Follow up Appointment(s)/Referral(s): Yung Hickey MD [STAFF PHYSICIAN] - 1 Week (office will call patient ) Patient Instructions/Handouts: Cardiac Ablation (DC), Electrophysiology Study (DC) Activity/Diet/Wound Care/Special Instructions: Post EP study - Ablation instructions 1. Keep access sites dry for 2 days. 2. No heavy lifting or straining for 2 days. 3. Avoid bending the hips repeatedly for 2 days. 4. You may go up and down stairs slowly Call if the following is noted 1. Bleeding, increasing swelling or pain at the access sites. 2. Increasing chest discomfort, especially upon taking a deep breath. 3. Increasing shortness of breath, at rest or with exertion. 4. Undue cough / phlegm 5. Difficulty or pain while swallowing. 6. Pain or change in color in the extremities. 7. Fever, chills, rigors. 8. Increasing headache or neurologic symptoms. 9. Dizziness, fainting, palpitations Continue anticoagulation and cardiac medications Discharge Disposition: HOME SELF-CARE Care Plan Goals (MU): [facility] for [facility]-f[facility] and groin check
== END 2022-08-24 17:08 | disposition home or self-care (01) ==
LOC: CATHEP 12:11 → 6NMEDSUR 19:10 → CATHEP 08-24 17:08
PROVIDERS: ATTEND Internal Medicine Clinical Cardiac Electrophysiology
DX: I48.19 Other persistent atrial fibrillation (principal); I48.3 Typical atrial flutter; I44.2 Atrioventricular block, complete; I11.9 Hypertensive heart disease without heart failure; E78.5 Hyperlipidemia, unspecified; F17.210 Nicotine dependence, cigarettes, uncomplicated; I73.9 Peripheral vascular disease, unspecified; Z79.01 Long term (current) use of anticoagulants; Z79.02 Long term (current) use of antithrombotics/antiplatelets; Z79.899 Other long term (current) drug therapy
CPT/HCPCS: 93655; 93656; 93657; 86900; 86901; 85025; 86850; C1894 ×2; C1769 ×3; C1760; C1730 ×2; C1759; C1893; C1733; C1766; C1732; J2001; J1644 ×2; Q9967

== ENCOUNTER 2022-09-27 11:17 | Inpatient (IN) | payer MEDICARE ==
[2022-09-27] MEDS ORDERED: SODIUM CHLORIDE 0.9% 500 ML 500 ML IV ONE (11:47)
[2022-09-27] MEDS ORDERED: MECLIZINE 12.5 MG TAB PO STA (11:47)
--- NOTE | 2022-09-27 11:50 | ED ---
General Adult HPI - General Chief complaint: Nausea/Vomiting/Diarrhea Stated complaint: Nausea, vomiting Time Seen by Provider: 09/27/22 11:25 Source: patient, EMS, RN notes reviewed, old records reviewed Mode of arrival: EMS Limitations: no limitations - History of Present Illness Initial comments: 81-year-old male presenting for evaluation of vertigo, near syncope. Patient has had recurrent episodes over the past several years most recently 2 weeks prior. Patient did not fully lose consciousness. He felt a buzzing sensation in his had and had several episodes of vomiting prior to arrival. He has worn a cafeteria monitor which the family is uncertain of the results of this monitor. He denied any chest pain or palpitations. He has been eating and drinking normally. No fever. No trauma related to the fall today. He has had some fluctuating blood pressures and has been dealing with medication changes with his primary care provider. This has been a recurrent issue and the patient did receive echocardiogram approximately 2 weeks prior. - Related Data Home Medications Medication Instructions Recorded Confirmed Tamsulosin HCl [Flomax] 0.4 mg PO HS 12/08/18 09/14/22 Apixaban [Eliquis] 5 mg PO BID 04/07/22 09/14/22 Metoprolol Tartrate [Lopressor] 75 mg PO BID 04/07/22 09/14/22 hydrALAZINE HCL [Apresoline] 25 mg PO TID PRN 04/07/22 09/14/22 Clopidogrel [Plavix] 75 mg PO DAILY 07/22/22 09/14/22 Losartan Potassium 50 mg PO HS 07/22/22 09/14/22 Atorvastatin [Lipitor] 80 mg PO HS 09/14/22 09/14/22 Levalbuterol Hfa Inhaler [Xopenex 1 - 2 puff INHALATION RT-Q6H PRN 09/14/22 09/14/22 Hfa Inhaler] Previous Rx's Medication Instructions Recorded hydroCHLOROthiazide [Hydrodiuril] 12.5 mg PO DAILY #30 cap 09/16/22 Allergies Allergy/AdvReac Type Severity Reaction Status Date / Time cephalexin [From Keflex] Allergy Rash/Hives Verified 09/27/22 11:25 Review of Systems ROS Statement: Those systems with pertinent positive or pertinent negative responses have been documented in the HPI. ROS Other: All systems not noted in ROS Statement are negative. Past Medical History Past Medical History: Atrial Fibrillation, CVA/TIA, Hyperlipidemia, Hypertension, Pneumonia, Prostate Disorder, Skin Disorder, Vascular Disorder Additional Past Medical History / Comment(s): environmental allergies, bladder stones, blister and cellulitis issues in lower extremities , states TIA June 22 2022 no residual issues. See Dr Milligan's H& P History of Any Multi-Drug Resistant Organisms: MRSA Date of last positivie culture/infection: 02/14/20 MDRO Source:: Right Thigh Past Surgical History: Appendectomy, Back Surgery, Bowel Resection, Heart Catheterization, Orthopedic Surgery Additional Past Surgical History / Comment(s): sinus surgery x3 including deviated septum, yaneth. carotid endarterectomy, rt ankle fusion with plates and screws, pain procedures, surg. to remove bladder stones, cardioversion 2019 and a failed cardioversion 03/2022, back surg. 2018, arthroscopy left knee arch studies, back surgery 2010, VANDANA 06/2022, afib ablation 07/2022 Past Anesthesia/Blood Transfusion Reactions: Postoperative Nausea & Vomiting (PONV) Additional Past Anesthesia/Blood Transfusion Reaction / Comment(s): happened many years ago Past Psychological History: No Psychological Hx Reported Smoking Status: Former smoker Past Alcohol Use History: Occasional Past Drug Use History: None Reported - Past Family History Mother Family Medical History: Cancer Additional Family Medical History / Comment(s): breast Father Family Medical History: Cancer Additional Family Medical History / Comment(s): testicular General Exam Limitations: no limitations General appearance: alert, in no apparent distress Head exam: Present: atraumatic, normocephalic Eye exam: Present: normal appearance, PERRL ENT exam: Present: normal exam Neck exam: Present: normal inspection. Absent: tenderness Respiratory exam: Present: normal lung sounds bilaterally. Absent: respiratory distress, wheezes Cardiovascular Exam: Present: regular rate, normal rhythm GI/Abdominal exam: Present: soft. Absent: distended, tenderness, guarding Extremities exam: Present: normal inspection Neurological exam: Present: alert, oriented X3, CN II-XII intact, other (No upper extremity ataxia). Absent: motor sensory deficit Psychiatric exam: Present: normal affect, normal mood Skin exam: Present: warm, dry, intact Course Vital Signs 09/27/22 09/27/22 09/27/22 11:17 13:06 14:14 Temperature 95.7 F L Pulse Rate 74 73 81 Respiratory 18 18 16 Rate Blood Pressure 214/107 217/103 219/103 O2 Sat by Pulse 94 L 97 97 Oximetry Medical Decision Making - Medical Decision Making Was pt. sent in by a medical professional or institution (SEKOU Schneider, [employer], urgent care, hospital, or custodial...) When possible be specific @ -No Did you speak to anyone other than the patient for history (EMS, parent, family, police, friend...)? What history was obtained from this source @ -Patient's is able to give a detailed history. Did you review nursing and triage notes (agree or disagree)? Why? @ -I reviewed and agree with nursing and triage notes Were old charts reviewed (outside hosp., previous admission, EMS record, old EKG, old radiological studies, urgent care reports/EKG's, custodial records)? Report findings @ -No old charts were reviewed Differential Diagnosis (chest pain, altered mental status, abdominal pain women, abdominal pain men, vaginal bleeding, weakness, fever, dyspnea, syncope, headache, dizziness, GI bleed, back pain, seizure, CVA, palpatations, mental health, musculoskeletal)? @ Differential Syncope: Valvular disease, hypertrophic cardiomyopathy, pulmonary embolism, tamponade, tachycardia, bradycardia, [place], hypovolemia, hemorrhage, dissection, anemia, intracranial hemorrhage, seizure, hypoglycemia, carbon monoxide poisoning, this is not meant to be an all-inclusive list. EKG interpreted by me (3pts min.). @ -EKG is sinus rhythm rate of 75, DC interval 151, QRS duration 106, QTC [address] segment elevation. X-rays interpreted by me (1pt min.). @ -No acute cardiopulmonary findings CT interpreted by me (1pt min.). @ -Brain CT, negative for intracranial hemorrhage or mass effect U/S interpreted by me (1pt. min.). @ -None done What testing was considered but not performed or refused? (CT, X-rays, U/S, labs)? Why? @ -None What meds were considered but not given or refused? Why? @ -None Did you discuss the management of the patient with other professionals (professionals i.e. SEKOU Schneider, [employer], lab, RT, psych nurse, social media intern, scalemaker, teacher, customer service security officer, family caseworker)? Give summary @ -[ Sheet Was smoking cessation discussed for >3mins.? @ -No Was critical care preformed (if so, how long)? @ -No Were there social determinants of health that impacted care today? How? (Homelessness, low income, unemployed, alcoholism, drug addiction, transportation, low edu. Level, literacy, decrease access to med. care, halfway, rehab)? @ -No Was there de-escalation of care discussed even if they declined (Discuss DNR or withdrawal of care, Hospice)? DNR status @ -No What co-morbidities impacted this encounter? (DM, HTN, Smoking, COPD, CAD, Cancer, CVA, ARF, Chemo, Hep., AIDS, mental health diagnosis, sleep apnea, morbid obesity)? @ -Hypertension Was patient admitted / discharged? Hospital course, mention meds given and route, prescriptions, significant lab abnormalities, going to OR and other pertinent info. @ A 1-year-old male presenting with vertigo versus near syncope. Patient had associated vomiting and diaphoresis. He has had significant blood pressure fluctuations recently and has had several medication changes. He has no as sociated chest pain. He remains hypertensive and with associated nausea throughout his stay in the emergency department. He has a head CT which is negative for intracranial hemorrhage, normal CBC, normal CMP, negative troponin. He is in sinus rhythm. He had a recent ablation approximately one month ago. Patient will be admitted to a telemetry bed for observation. Consultations placed to both neurology and cardiology given the recurrent nature of his symptoms. He is given hydralazine in the emergency department, meclizine, IV fluids. Undiagnosed new problem with uncertain prognosis? @ -No Drug Therapy requiring intensive monitoring for toxicity (Heparin, Nitro, Insulin, Cardizem)? @ -No Were any procedures done? @ -No Diagnosis/symptom? @ Vertigo versus near syncope, hypertension Acute, or Chronic, or Acute on Chronic? @ -[Acute Uncomplicated (without systemic symptoms) or Complicated (systemic symptoms)? @ -[Complicated Side effects of treatment? @ -No Exacerbation, Progression, or Severe Exacerbation? @ -No Poses a threat to life or bodily function? How? (Chest pain, [place], [place], pneumonia, PE, COPD, DKA, ARF, appy, cholecystitis, CVA, Diverticulitis, Homicidal, Suicidal, threat to staff... and all critical care pts) @ -[Yes, arrhythmia - Lab Data Result diagrams: 09/27/22 12:10 09/27/22 12:10 Lab Results 09/27/22 09/27/22 09/27/22 Range/Units 02:56 12:10 12:10 WBC 10.7 H (3.8-10.6) k/uL RBC 5.10 (4.30-5.90) m/uL Hgb 14.2 (13.0-17.5) gm/dL Hct 43.5 (39.0-53.0) % MCV 85.3 (80.0-100.0) fL MCH 27.9 (25.0-35.0) pg MCHC 32.7 (31.0-37.0) g/dL RDW 14.8 (11.5-15.5) % Plt Count 254 (150-450) k/uL MPV 7.3 Neutrophils % 71 % Lymphocytes % 17 % Monocytes % 9 % Eosinophils % 0 % Basophils % 0 % Neutrophils # 7.6 (1.3-7.7) k/uL Lymphocytes # 1.8 (1.0-4.8) k/uL Monocytes # 1.0 (0-1.0) k/uL Eosinophils # 0.0 (0-0.7) k/uL Basophils # 0.0 (0-0.2) k/uL PT 10.0 (9.0-12.0) sec INR 0.9 (<1.2) APTT 20.8 L (22.0-30.0) sec Sodium (137-145) mmol/L Potassium (3.5-5.1) mmol/L Chloride (98-107) mmol/L Carbon Dioxide (22-30) mmol/L Anion Gap mmol/L BUN (9-20) mg/dL Creatinine (0.66-1.25) mg/dL Est GFR (CKD-EPI)AfAm (>60 ml/min/1.73 sqM) Est GFR (CKD-EPI)NonAf (>60 ml/min/1.73 sqM) Glucose (74-99) mg/dL Plasma Lactic Acid Juan 1.7 (0.7-2.0) mmol/L Calcium (8.4-10.2) mg/dL Total Bilirubin (0.2-1.3) mg/dL AST (17-59) U/L ALT (4-49) U/L Alkaline Phosphatase (38-126) U/L Troponin I (0.000-0.034) ng/mL Total Protein (6.3-8.2) g/dL Albumin (3.5-5.0) g/dL 09/27/22 09/27/22 Range/Units 12:10 12:10 WBC (3.8-10.6) k/uL RBC (4.30-5.90) m/uL Hgb (13.0-17.5) gm/dL Hct (39.0-53.0) % MCV (80.0-100.0) fL MCH (25.0-35.0) pg MCHC (31.0-37.0) g/dL RDW (11.5-15.5) % Plt Count (150-450) k/uL MPV Neutrophils % % Lymphocytes % % Monocytes % % Eosinophils % % Basophils % % Neutrophils # (1.3-7.7) k/uL Lymphocytes # (1.0-4.8) k/uL Monocytes # (0-1.0) k/uL Eosinophils # (0-0.7) k/uL Basophils # (0-0.2) k/uL PT (9.0-12.0) sec INR (<1.2) APTT (22.0-30.0) sec Sodium 138 (137-145) mmol/L Potassium 4.0 (3.5-5.1) mmol/L Chloride 104 (98-107) mmol/L Carbon Dioxide 27 (22-30) mmol/L Anion Gap 7 mmol/L BUN 32 H (9-20) mg/dL Creatinine 0.82 (0.66-1.25) mg/dL Est GFR (CKD-EPI)AfAm >90 (>60 ml/min/1.73 sqM) Est GFR (CKD-EPI)NonAf 82 (>60 ml/min/1.73 sqM) Glucose 142 H (74-99) mg/dL Plasma Lactic Acid Juan (0.7-2.0) mmol/L Calcium 9.3 (8.4-10.2) mg/dL Total Bilirubin 1.5 H (0.2-1.3) mg/dL AST 27 (17-59) U/L ALT 33 (4-49) U/L Alkaline Phosphatase 117 (38-126) U/L Troponin I <0.012 (0.000-0.034) ng/mL Total Protein 7.2 (6.3-8.2) g/dL Albumin 4.0 (3.5-5.0) g/dL Disposition Clinical Impression: Syncope, Vertigo Disposition: ADMITTED IP TO THIS HOSP Condition: Stable Is patient prescribed a controlled substance at d/c from ED?: No Referrals: Nikko Sultana MD [Primary Care Provider] - 1-2 days Time of Disposition: 14:22
[2022-09-27 12:21] LABS: Basophils % (A) 0 %; Eosinophils % (A) 0 %; HCT 43.5 % (39.0-53.0); HGB 14.2 gm/dL (13.0-17.5); Lymphocytes # (A) 1.8 k/uL (1.0-4.8); Lymphocytes % (A) 17 %; MCH 27.9 pg (25.0-35.0); MCHC 32.7 g/dL (31.0-37.0); MCV 85.3 fL (80.0-100.0); Mean Platelet Volume 7.3; Monocytes % (A) 9 %; Neutrophils # (A) 7.6 k/uL (1.3-7.7); Neutrophils % (A) 71 %; Platelet Count 254 k/uL (150-450); RDW 14.8 % (11.5-15.5); WBC 10.7 k/uL (3.8-10.6)
[2022-09-27 12:38] LABS: ALT 33 U/L (4-49); AST 27 U/L (17-59); African American GFR (CKD) >90 (>60 ml/min/1.73 sqM); Alkaline Phosphatase 117 U/L (38-126); Anion Gap 7 mmol/L; Blood Urea Nitrogen 32 mg/dL (9-20); Calcium 9.3 mg/dL (8.4-10.2); Carbon Dioxide 27 mmol/L (22-30); Chloride 104 mmol/L (98-107); Glucose 142 mg/dL (74-99); Non-African American GFR(CKD) 82 (>60 ml/min/1.73 sqM); Sodium 138 mmol/L (137-145); Total Bilirubin 1.5 mg/dL (0.2-1.3); Total Protein 7.2 g/dL (6.3-8.2)
[2022-09-27 12:51] LABS: INR 0.9 (<1.2)
[2022-09-27 12:56] LABS: Partial Thromboplastin Time 20.8 sec (22.0-30.0)
--- NOTE | 2022-09-27 13:01 | CT ---
EXAMINATION TYPE: CT brain wo con DATE OF EXAM: 09/27/2022 COMPARISON: None HISTORY: VERTIGO, DIAPHARETIC, ALMOST PASSED OUT CT DLP: 1163.4 mGycm Automated exposure control for dose reduction was used. FINDINGS: Mild generalized degenerative change with hypoattenuation in the white matter most typical of remote microvascular ischemic white matter change. No midline shift or mass effect. No acute hemorrhage. Calcifications in the basal ganglia additional parenchymal calcifications stable from prior CT of the facial bones 11/15/2010. There is intracranial atherosclerotic changes. There is left-sided maxillary sinusitis with air-fluid level. Nasal septal deviation noted. Additional chronic appearing sinusitis with probable hemorrhagi c or fungal component involving the ethmoid air cells posteriorly. Fairly dense mucosal thickening in volving the frontal sinus on the left. Small osteoma within the right frontal sinus and right anterio r ethmoid sinus Orbits are symmetric. Craniocervical junction maintained. IMPRESSION: 1. MILD DEGENERATIVE AND REMOTE ISCHEMIC MICROVASCULAR WHITE MATTER CHANGES. NO ACUTE HEMORRHAGE OR M ASS EFFECT. 2. SINUSITIS WITH AIR-FLUID LEVEL INVOLVING THE LEFT MAXILLARY SINUS SUGGESTS POSSIBLE ACUTE COMPONEN T. CORRELATE CLINICALLY
--- NOTE | 2022-09-27 13:09 | XR ---
EXAMINATION TYPE: XR chest 2V DATE OF EXAM: 09/27/2022 COMPARISON: 09/15/2022 INDICATION: Vertigo TECHNIQUE: Frontal and lateral views of the chest are obtained. FINDINGS: The heart size is normal. The pulmonary vasculature is normal. The lungs are clear. Prominence of the left hilum is less apparent on the current exam IMPRESSION: 1. No acute pulmonary process.
[2022-09-27] MEDS ORDERED: hydrALAZINE HCL 20 MG/ML 1 ML VIAL IVP STA (13:21)
[2022-09-27] MEDS ORDERED: NALOXONE 0.4 MG/ML 1 ML VIAL IV PRN (14:18)
--- NOTE | 2022-09-27 14:54 | P.HPIM ---
History of Present Illness This is a pleasant 81 years old male with past medical history of atrial fibrillation, diagnosed about 6 months ago and patient underwent ablation in July 2022,hypertension, hyperlipidemia, history of TIA in July 2022, coronary artery disease Patient was recently hospitalized 09/14-09/20 syncope at that time has been evaluated by manager contact and cleared for discharge to 7 days of event monitor Patient follows up with Dr. Hickey and Dr. Dee for atrial fibrillation diagnosed earlier this year in February, eventually patient could be converted to sinus rhythm. Today he presents because of dizziness. He workup in the morning and went to the kitchen and while he was in the front of his sink he felt buzzing in his head which happened to him again before so he knew it was coming the dizziness so he got up to chair. This followed by spinning of the room and dizziness, which lasted until the patient got into the ambulance when the family called 911. While check his blood pressure was 150/70, 911 staff told him not to give blood pressure medication. So on admission his blood pressure was significantly elevated. Patient was confirmed to me he is taken losartan 100 mg and metoprolol 75 mg twice daily but he did not take his pills today. Patient vomited twice this morning when there was no blood. About 2-3 days ago his blood pressure was elevated. Patient contacted his PCP Dr. Serrano who increased his losartan to 100 mg daily, it was 50 mg before However patient denies any headache or dizziness currently, no weakness or numbness or tingling. No blurred vision or slurred speech. He denies any chest pain or dyspnea. No GI or urinary complaints. He denies smoking alcohol or illicit drugs He follows up with Dr. Jair Flowers for seizure. He follows up with Dr. Khalil for peripheral vascular disease Blood pressure elevated 214/107. A femoral and dorsal vitals are stable. He has mild leukocytosis 10.7, rest of CBC, INR, BMP and liver enzymes were unremarkable. Troponin is negative. EKG showing normal sinus rhythm at [address]-T changes. Due to C4 54. Chest x-ray: No acute pulmonary process CT of the brain: No acute process. Sinusitis with air-fluid level involving the left maxillary sinus suggests possible acute component. Call a Clinically In the emergency room received hydralazine 10 mg 1 and normal saline Admitted with cardiology and neurology consult Review of Systems Review of systems CONSTITUTIONAL: No fever, no malaise, no fatigue. HEENT: No recent visual problems or hearing problems. Denied any sore throat. CARDIOVASCULAR: No orthopnea, PND, no palpitations, no syncope. PULMONARY: No shortness of breath, no cough, no hemoptysis. GASTROINTESTINAL: No diarrhea, no nausea, no vomiting, no abdominal pain. Normoactive bowel sounds. NEUROLOGICAL: No headaches, no weakness, no numbness. HEMATOLOGICAL: Denies any bleeding or petechiae. GENITOURINARY: Denies any burning micturition, frequency, or urgency. MUSCULOSKELETAL/RHEUMATOLOGICAL: Denies any joint pain, swelling, or any muscle pain. ENDOCRINE: Denies any polyuria or polydipsia. Past Medical History Past Medical History: Atrial Fibrillation, CVA/TIA, Hyperlipidemia, Hypertension, Pneumonia, Prostate Disorder, Skin Disorder, Vascular Disorder Additional Past Medical History / Comment(s): environmental allergies, bladder stones, blister and cellulitis issues in lower extremities , states TIA June 22 2022 no residual issues. See Dr Milligan's H& P History of Any Multi-Drug Resistant Organisms: MRSA Date of last positivie culture/infection: 02/14/20 MDRO Source:: Right Thigh Past Surgical History: Appendectomy, Back Surgery, Bowel Resection, Heart Catheterization, Orthopedic Surgery Additional Past Surgical History / Comment(s): sinus surgery x3 including deviated septum, yaneth. carotid endarterectomy, rt ankle fusion with plates and screws, pain procedures, surg. to remove bladder stones, cardioversion 2019 and a failed cardioversion 03/2022, back surg. 2018, arthroscopy left knee arch studies, back surgery 2010, VANDANA 06/2022, afib ablation 07/2022 Past Anesthesia/Blood Transfusion Reactions: Postoperative Nausea & Vomiting (PONV) Additional Past Anesthesia/Blood Transfusion Reaction / Comment(s): happened many years ago Past Psychological History: No Psychological Hx Reported Smoking Status: Former smoker Past Alcohol Use History: Occasional Past Drug Use History: None Reported - Past Family History Mother Family Medical History: Cancer Additional Family Medical History / Comment(s): breast Father Family Medical History: Cancer Additional Family Medical History / Comment(s): testicular Medications and Allergies Home Medications Medication Instructions Recorded Confirmed Type Tamsulosin HCl [Flomax] 0.4 mg PO HS 12/08/18 09/27/22 History Apixaban [Eliquis] 5 mg PO BID 04/07/22 09/27/22 History Metoprolol Tartrate [Lopressor] 75 mg PO BID 04/07/22 09/27/22 History hydrALAZINE HCL [Apresoline] 25 mg PO TID PRN 04/07/22 09/27/22 History Clopidogrel [Plavix] 75 mg PO DAILY 07/22/22 09/27/22 History Losartan Potassium 100 mg PO HS 07/22/22 09/27/22 History Atorvastatin [Lipitor] 80 mg PO HS 09/14/22 09/27/22 History Levalbuterol Hfa Inhaler [Xopenex 1 - 2 puff INHALATION RT-Q6H PRN 09/14/22 09/27/22 History Hfa Inhaler] hydroCHLOROthiazide [Hydrodiuril] 12.5 mg PO DAILY #30 cap 09/16/22 09/27/22 Rx Allergies Allergy/AdvReac Type Severity Reaction Status Date / Time cephalexin [From Keflex] Allergy Rash/Hives Verified 09/27/22 14:40 Physical Exam Vitals: Vital Signs Temp Pulse Resp BP Pulse Ox 09/27/22 14:14 81 16 219/103 97 09/27/22 13:06 73 18 217/103 97 09/27/22 11:17 95.7 F L 74 18 214/107 94 L Intake and Output 09/26/22 09/27/22 09/27/22 22:59 06:59 14:59 Other: Weight 90.718 kg GENERAL: The patient is alert and oriented x3, not in any acute distress. Well developed, well nourished. HEENT: Pupils are round and equally reacting to light. EOMI. No scleral icterus. No conjunctival pallor. Normocephalic, atraumatic. No pharyngeal erythema. No thyromegaly. CARDIOVASCULAR: S1 and S2 present. No murmurs, rubs, or gallops. PULMONARY: Chest is clear to auscultation, no wheezing , no crackles. ABDOMEN: Soft, nontender, nondistended, normoactive bowel sounds. No palpable organomegaly. MUSCULOSKELETAL: No joint swelling or deformity. EXTREMITIES: No cyanosis, clubbing, or pedal edema. NEUROLOGICAL: Gross neurological examination did not reveal any focal deficits. SKIN: No rashes. no petechiae. Results CBC & Chem 7: 09/27/22 12:10 09/27/22 12:10 Labs: Abnormal Lab Results - Last 24 Hours (Table) 09/27/22 09/27/22 09/27/22 Range/Units 12:10 12:10 12:10 WBC 10.7 H (3.8-10.6) k/uL APTT 20.8 L (22.0-30.0) sec BUN 32 H (9-20) mg/dL Glucose 142 H (74-99) mg/dL Total Bilirubin 1.5 H (0.2-1.3) mg/dL Assessment and Plan Assessment: Dizziness and vertigo, recurrent. He had similar episodes about 2-3 weeks ago Hypertension with urgency, present on admission Persistent atrial fibrillation on anticoagulation with eliquis. Status post atrial fibrillation in July 2022. History of cardioversion in 2019 History of TIA History of peripheral vascular disease History of bilateral carotid endarterectomy. Hypertension Hyperlipidemia History of prostate with BPH Plan: continue with antihypertensive medication and monitor blood pressure closely Telemetry Neuro check Cardiology and neurology consult Continue gentle hydration Labs and medication were reviewed.. Continue same treatment. Continue with symptomatic treatment. Resume home medication. Monitor labs and vitals. DVT and GI prophylaxis. Further recommendations as per clinical course of the patient DVT prophylaxis: On a blood thinner at home GI Prophylaxis: Pepcid PT/OT: Pending Prognosis is guarded
[2022-09-27] MEDS: METOPROLOL TARTRATE 25 MG TAB PO SCH ×2 (15:01→21:02)
[2022-09-27] MEDS: ACETAMINOPHEN TAB 325 MG TAB PO PRN (15:01)
[2022-09-27] MEDS: LOSARTAN 50 MG TAB PO SCH (15:01)
[2022-09-27] MEDS: SODIUM CHLORIDE 0.9% 1,000 ML IV SCH (15:02)
[2022-09-27] MEDS: hydroCHLOROthiazide 12.5 MG CAP PO SCH (17:05)
[2022-09-27] MEDS: ATORVASTATIN 80 MG TAB PO SCH (21:01)
[2022-09-27] MEDS: TAMSULOSIN 0.4 MG CAP.ER.24H PO SCH (21:02)
[2022-09-27] MEDS: APIXABAN 5 MG TAB PO SCH (21:02)
[2022-09-27] MEDS: hydrALAZINE HCL 25 MG TAB PO PRN (22:56)
[2022-09-27] MEDS: hydrALAZINE HCL 20 MG/ML 1 ML VIAL IVP PRN (22:56)
[2022-09-27] MEDS ORDERED: LORazepam 2 MG/ML INJ IV PRN (23:06)
[2022-09-27] MEDS ORDERED: amLODIPine 5 MG TAB PO ONE (23:15)
[2022-09-28] MEDS: hydrALAZINE HCL 20 MG/ML 1 ML VIAL IVP PRN (05:00)
[2022-09-28] MEDS: SODIUM CHLORIDE 0.9% 1,000 ML IV SCH ×2 (08:34→16:32)
[2022-09-28] MEDS: ACETAMINOPHEN TAB 325 MG TAB PO PRN (08:35)
[2022-09-28] MEDS: hydroCHLOROthiazide 12.5 MG CAP PO SCH (08:35)
[2022-09-28] MEDS: CLOPIDOGREL 75 MG TAB PO SCH (08:35)
[2022-09-28] MEDS: APIXABAN 5 MG TAB PO SCH ×2 (08:35→20:32)
[2022-09-28] MEDS: METOPROLOL TARTRATE 25 MG TAB PO SCH ×2 (08:36→20:32)
[2022-09-28] MEDS: LOSARTAN 50 MG TAB PO SCH (08:36)
--- NOTE | 2022-09-28 09:56 | P.CRDCN ---
History of Present Illness Consult date: 09/28/22 Reason for Consult (text): Vertigo and near syncope History of present illness: HISTORY OF PRESENT ILLNESS: This is a 81-year-old male with a past medical history significant for carotid stenosis with previous bilateral carotid endarterectomy, nonobstructive coronary artery disease, hypertension, hyperlipidemia, cellulitis of lower extremities, TIA, persistent atrial fibrillation, previous cardioversion 2, and A. fib ablation. Patient follows in the office with Dr. Hickey. We have been asked to see the patient in consultation for near syncope, vertigo. Patients is at the bedside and providing the majority of the history. Patient recently underwent A. fib ablation on 08/23/2022. The patient has been doing well since his procedure. The patient had a hospitalization 2 weeks ago for syncope and Lasix was discontinued and patient started on hydrochlorothiazide, advised to monitor blood pressure at home and a seven-day event monitor. Patient returned due to near syncopal episodes. No chest pain or shortness of breath. EKG reveals sinus mechanism with PACs, no signs of acute ischemia Chest xray no acute process WBC 10.7, hemoglobin 14.2. INR 0.9. Electrolytes normal. BUN 32 and creatinine 0.82. Glucose 142. Troponin negative 1. Total bilirubin 1.5 otherwise liver function tests are normal. Current home cardiac medications include Eliquis 5mg BID, atorvastatin 80 mg at bedtime, Plavix 75 mg daily, hydralazine 25 mg 3 times daily as needed, hydrochlorothiazide 12.5 mg daily, losartan 100 mg at bedtime, Lopressor 75 mg twice daily Most recent echocardiogram obtained in August 2022 revealed ejection fraction 55- 60%, mild concentric left Altagracia hypertrophy, mild left atrial dilation, moderate pulmonary hypertension RVSP 45 mmHg, mild right ventricular dilation. Cardiac catheterization history: June 2019 revealing noncritical coronary artery disease, codominant/right dominant system and normal filling pressures and no gradient. REVIEW OF SYSTEMS: At the time of my exam: CONSTITUTIONAL: Denies fever or chills. HEENT: Denies blurred vision, vision changes, or eye pain. Denies hemoptysis CARDIOVASCULAR: Denies chest pain. Denies orthopnea. Denies PND. Denies palpitations RESPIRATORY: Denies shortness of breath. GASTROINTESTINAL: Denies abdominal pain. Denies nausea or vomiting. HEMATOLOGIC: Denies bleeding disorders. GENITOURINARY: Denies any blood in urine. SKIN: Denies pruitis. Denies rash. PHYSICAL EXAM: VITAL SIGNS: Reviewed. GENERAL: Well-developed in no acute distress. HEENT: Head is normocephalic. Pupils are equal, round. Sclerae anicteric. Mucous membranes of the mouth are moist. Neck supple. No JVD or thyromegaly LUNGS: Respirations even and unlabored. Lungs essentially clear to auscultation bilaterally. HEART: Regular rate and rhythm. S1 and S2 heard. ABDOMEN: Soft. Nondistended. Nontender. EXTREMITIES: Normal range of motion. No clubbing or cyanosis. Peripheral pulses intact. NEUROLOGIC: Awake and alert. Oriented x 3. ASSESSMENT: Near Syncope possibly secondary to nonsustained atrial tachycardia or bradycardic episode History of persistent atrial fibrillation, status post A. fib ablation, July 2022 Nonobstructive coronary artery disease Carotid stenosis with previous bilateral carotid endarterectomy Hypertension Hyperlipidemia History of lower extremity cellulitis Peripheral vascular disease History of TIA History of cardioversion 2 PLAN: No need to repeat echocardiogram Continue current home cardiac medications with exception of decreasing Lopressor to 50 mg twice daily Possible loop recorder at the time of discharge. Will discuss with Dr. Hickey. Further recommendations pending patient's course Nurse practitioner note has been reviewed by physician. Signing provider agrees with the documented findings, assessment, and plan of care. Past Medical History Past Medical History: Atrial Fibrillation, CVA/TIA, Hyperlipidemia, Hypertension, Pneumonia, Prostate Disorder, Skin Disorder, Vascular Disorder Additional Past Medical History / Comment(s): environmental allergies, bowel resection, bladder stones, blister and cellulitis issues in lower extremities , states TIA June 22 2022 no residual issues. See Dr Milligan's H& P History of Any Multi-Drug Resistant Organisms: MRSA Date of last positivie culture/infection: 02/14/20 MDRO Source:: Right Thigh Past Surgical History: Appendectomy, Back Surgery, Bowel Resection, Heart Ca theterization, Orthopedic Surgery Additional Past Surgical History / Comment(s): sinus surgery x3 including deviated septum, yaneth. carotid endarterectomy, rt ankle fusion with plates and screws, pain procedures, surg. to remove bladder stones, cardioversion 2019 and a failed cardioversion 03/2022, back surg. 2018, arthroscopy left knee arch studies, back surgery 2010, VANDANA 06/2022, afib ablation 07/2022 Past Anesthesia/Blood Transfusion Reactions: Postoperative Nausea & Vomiting (PONV) Additional Past Anesthesia/Blood Transfusion Reaction / Comment(s): happened many years ago Past Psychological History: No Psychological Hx Reported Smoking Status: Former smoker Past Alcohol Use History: Occasional Additional Past Alcohol Use History / Comment(s): smoked pipe when younger none for 47 years Past Drug Use History: None Reported Additional Drug Use History / Comment(s): hemp cream - Past Family History Mother Family Medical History: Cancer Additional Family Medical History / Comment(s): breast Father Family Medical History: Cancer Additional Family Medical History / Comment(s): testicular Medications and Allergies Home Medications Medication Instructions Recorded Confirmed Type Tamsulosin HCl [Flomax] 0.4 mg PO HS 12/08/18 09/27/22 History Apixaban [Eliquis] 5 mg PO BID 04/07/22 09/27/22 History Metoprolol Tartrate [Lopressor] 75 mg PO BID 04/07/22 09/27/22 History hydrALAZINE HCL [Apresoline] 25 mg PO TID PRN 04/07/22 09/27/22 History Clopidogrel [Plavix] 75 mg PO DAILY 07/22/22 09/27/22 History Losartan Potassium 100 mg PO HS 07/22/22 09/27/22 History Atorvastatin [Lipitor] 80 mg PO HS 09/14/22 09/27/22 History Levalbuterol Hfa Inhaler [Xopenex 1 - 2 puff INHALATION RT-Q6H PRN 09/14/22 09/27/22 History Hfa Inhaler] hydroCHLOROthiazide [Hydrodiuril] 12.5 mg PO DAILY #30 cap 09/16/22 09/27/22 Rx Allergies Allergy/AdvReac Type Severity Reaction Status Date / Time cephalexin [From Keflex] Allergy Rash/Hives Verified 09/27/22 14:40 Physical Exam Vitals: Vital Signs Temp Pulse Resp BP BP Pulse Ox 09/28/22 04:00 98.3 F 14 197/109 96 09/28/22 00:00 98.2 F 72 12 161/73 95 09/27/22 22:00 74 14 168/77 96 09/27/22 21:00 77 18 158/80 96 09/27/22 19:30 70 18 134/76 96 09/27/22 18:57 98.1 F 71 18 116/57 97 09/27/22 18:05 70 18 121/62 97 09/27/22 17:18 98.2 F 16 135/55 96 09/27/22 17:05 89 18 178/82 98 09/27/22 16:21 72 16 174/90 96 09/27/22 15:51 81 200/102 95 09/27/22 14:51 104 H 18 216/103 97 09/27/22 14:14 81 16 219/103 97 09/27/22 13:06 73 18 217/103 97 09/27/22 12:00 73 8 L 216/100 95 09/27/22 11:23 214/107 95 09/27/22 11:17 95.7 F L 74 18 214/107 94 L Intake and Output 09/27/22 09/28/22 09/28/22 22:59 06:59 14:59 Output Total 400 200 Balance -400 -200 Output: Urine 400 200 Other: Voiding Method Urinal Urinal # Voids 2 1 Weight 90.718 kg Results 09/27/22 12:10 09/27/22 12:10 Cardiac Enzymes 09/27/22 09/27/22 Range/Units 12:10 12:10 AST 27 (17-59) U/L Troponin I <0.012 (0.000-0.034) ng/mL Coagulation 09/27/22 Range/Units 12:10 PT 10.0 (9.0-12.0) sec APTT 20.8 L (22.0-30.0) sec CBC 09/27/22 Range/Units 12:10 WBC 10.7 H (3.8-10.6) k/uL RBC 5.10 (4.30-5.90) m/uL Hgb 14.2 (13.0-17.5) gm/dL Hct 43.5 (39.0-53.0) % Plt Count 254 (150-450) k/uL Comprehensive Metabolic Panel 09/27/22 Range/Units 12:10 Sodium 138 (137-145) mmol/L Potassium 4.0 (3.5-5.1) mmol/L Chloride 104 (98-107) mmol/L Carbon Dioxide 27 (22-30) mmol/L BUN 32 H (9-20) mg/dL Creatinine 0.82 (0.66-1.25) mg/dL Glucose 142 H (74-99) mg/dL Calcium 9.3 (8.4-10.2) mg/dL AST 27 (17-59) U/L ALT 33 (4-49) U/L Alkaline Phosphatase 117 (38-126) U/L Total Protein 7.2 (6.3-8.2) g/dL Albumin 4.0 (3.5-5.0) g/dL Current Medications Generic Name Dose Route Start Last Admin Trade Name Freq PRN Reason Stop Dose Admin Acetaminophen 650 mg 09/27/22 14:18 09/27/22 15:01 Acetaminophen Tab 325 Mg Tab PO 650 mg Q6HR PRN Administration Mild Pain or Fever > 100.5 Apixaban 5 mg 09/27/22 21:00 09/27/22 21:02 Apixaban 5 Mg Tab PO 5 mg BID JODIE Administration Protocol Atorvastatin Calcium 80 mg 09/27/22 21:00 09/27/22 21:01 Atorvastatin 80 Mg Tab PO 80 mg HS JODIE Administration Clopidogrel Bisulfate 75 mg 09/28/22 09:00 Clopidogrel 75 Mg Tab PO DAILY JODIE Hydralazine HCl 25 mg 09/27/22 16:50 09/27/22 22:56 Hydralazine Hcl 25 Mg Tab PO 25 mg TID PRN Administration BP GREATER THAN 150/88 Hydralazine HCl 10 mg 09/27/22 16:51 09/28/22 05:00 Hydralazine Hcl 20 Mg/Ml 1 Ml Vial IVP 10 mg Q6HR PRN Administration Blood Pressure - High Hydralazine HCl 10 mg 09/27/22 22:41 Hydralazine Hcl 20 Mg/Ml 1 Ml Vial IVP Q2HR PRN Blood Pressure - High Hydrochlorothiazide 12.5 mg 09/27/22 17:30 09/27/22 17:05 Hydrochlorothiazide 12.5 Mg Cap PO 12.5 mg DAILY JODIE Administration Sodium Chloride 1,000 mls @ 75 mls/hr 09/27/22 14:30 09/27/22 15:02 Saline 0.9% IV 75 mls/hr .[id number] JODIE Administration Lorazepam 0.5 mg 09/27/22 23:06 09/27/22 23:43 Lorazepam 2 Mg/Ml Inj IV 0.5 mg ONCE PRN Administration Anxiety Losartan Potassium 100 mg 09/27/22 15:00 09/27/22 15:01 Losartan 50 Mg Tab PO 100 mg DAILY JODIE Administration Metoprolol Tartrate 75 mg 09/27/22 15:00 09/27/22 21:02 Metoprolol Tartrate 25 Mg Tab PO 75 mg BID JODIE Administration Naloxone HCl 0.2 mg 09/27/22 14:18 Naloxone 0.4 Mg/Ml 1 Ml Vial IV Q2M PRN Opioid Reversal Tamsulosin HCl 0.4 mg 09/27/22 21:00 09/27/22 21:02 Tamsulosin 0.4 Mg Cap.Er.24h PO 0.4 mg HS JODIE Administration Intake and Output 09/27/22 09/28/22 09/28/22 22:59 06:59 14:59 Output Total 400 200 Balance -400 -200 Output: Urine 400 200 Other: Voiding Method Urinal Urinal # Voids 2 1 Weight 90.718 kg 09/27/22 12:10 09/27/22 12:10
--- NOTE | 2022-09-28 10:30 | P.PN ---
Subjective This is a pleasant 81 years old male with past medical history of atrial fibrillation, diagnosed about 6 months ago and patient underwent ablation in July 2022,hypertension, hyperlipidemia, history of TIA in July 2022, coronary artery disease Patient was recently hospitalized 09/14-09/20 syncope at that time has been evaluated by jigger crown pouncing machine operator and cleared for discharge to 7 days of event monitor Patient follows up with Dr. Hickey and Dr. Dee for atrial fibrillation diagnosed earlier this year in February, eventually patient could be converted to sinus rhythm. Today he presents because of dizziness. He workup in the morning and went to the kitchen and while he was in the front of his sink he felt buzzing in his head which happened to him again before so he knew it was coming the dizziness so he got up to chair. This followed by spinning of the room and dizziness, which lasted until the patient got into the ambulance when the family called 911. While check his blood pressure was 150/70, 911 staff told him not to give blood pressure medication. So on admission his blood pressure was significantly elevated. Patient was confirmed to me he is taken losartan 100 mg and metoprolol 75 mg twice daily but he did not take his pills today. Patient vomited twice this morning when there was no blood. About 2-3 days ago his blood pressure was elevated. Patient contacted his PCP Dr. Serrano who increased his losartan to 100 mg daily, it was 50 mg before However patient denies any headache or dizziness currently, no weakness or numbness or tingling. No blurred vision or slurred speech. He denies any chest pain or dyspnea. No GI or urinary complaints. He denies smoking alcohol or illicit drugs He follows up with Dr. Jair Flowers for seizure. He follows up with Dr. Khalil for peripheral vascular disease Blood pressure elevated 214/107. A femoral and dorsal vitals are stable. He has mild leukocytosis 10.7, rest of CBC, INR, BMP and liver enzymes were unremarkable. Troponin is negative. EKG showing normal sinus rhythm at [address]-T changes. Due to C4 54. Chest x-ray: No acute pulmonary process CT of the brain: No acute process. Sinusitis with air-fluid level involving the left maxillary sinus suggests possible acute component. Call a Clinically In the emergency room received hydralazine 10 mg 1 and normal saline Admitted with cardiology and neurology consult 09/28/2022 Patient is dizziness has resolved were no more room spinning. No tinnitus or hearing loss. No other complaints Checker evaluated the patient, he was started on Plavix and WHICH are his home medication. Atrial tachycardia versus bradycardia is suspected for the cause jigger crown pouncing machine operator may recommend loop recorder upon discharge, we'll defer this management to them. Also decreased Lopressor 75 mg down to 50 mg. Objective - Vital Signs Vital signs: Vital Signs Temp 98.2 F 09/28/22 08:00 Pulse 77 09/28/22 08:00 Resp 16 09/28/22 08:00 BP 155/80 09/28/22 08:00 Pulse Ox 96 09/28/22 08:00 FiO2 Intake & Output 09/27/22 09/28/22 09/28/22 18:59 06:59 18:59 Intake Total 300 Output Total 400 200 200 Balance -400 -200 100 Weight 90.718 kg Intake: Intake, IV Titration 300 Amount Sodium Chloride 0.9% 1, 300 000 ml @ 75 mls/hr IV . [id number] [facility] Rx#:[id number] Output: Urine 400 200 200 Other: Voiding Method Urinal Urinal # Voids 2 1 - Exam GENERAL: The patient is alert and oriented x3, not in any acute distress. Well developed, well nourished. HEENT: Pupils are round and equally reacting to light. EOMI. No scleral icterus. No conjunctival pallor. Normocephalic, atraumatic. No pharyngeal erythema. No thyromegaly. CARDIOVASCULAR: S1 and S2 present. No murmurs, rubs, or gallops. PULMONARY: Chest is clear to auscultation, no wheezing , no crackles. ABDOMEN: Soft, nontender, nondistended, normoactive bowel sounds. No palpable organomegaly. MUSCULOSKELETAL: No joint swelling or deformity. EXTREMITIES: No cyanosis, clubbing, or pedal edema. NEUROLOGICAL: Gross neurological examination did not reveal any focal deficits. SKIN: No rashes. no petechiae. - Labs CBC & Chem 7: 09/27/22 12:10 09/27/22 12:10 Labs: Abnormal Lab Results - Last 24 Hours (Table) 09/27/22 09/27/22 09/27/22 Range/Units 12:10 12:10 12:10 WBC 10.7 H (3.8-10.6) k/uL APTT 20.8 L (22.0-30.0) sec BUN 32 H (9-20) mg/dL Glucose 142 H (74-99) mg/dL Total Bilirubin 1.5 H (0.2-1.3) mg/dL Assessment and Plan Assessment: Dizziness and vertigo, recurrent. He had similar episodes about 2-3 weeks ago Hypertension with urgency, present on admission Persistent atrial fibrillation on anticoagulation with eliquis. Status post atrial fibrillation in July 2022. History of cardioversion in 2019 History of TIA History of peripheral vascular disease History of bilateral carotid endarterectomy. Hypertension Hyperlipidemia History of prostate with BPH Plan: continue with antihypertensive medication and monitor blood pressure closely. Checker, recommended lower Lopressor 75 mg down to 50 mg Telemetry Neuro check Cardiology and neurology consult Continue gentle hydration Labs and medication were reviewed.. Continue same treatment. Continue with symptomatic treatment. Resume home medication. Monitor labs and vitals. DVT and GI prophylaxis. Further recommendations as per clinical course of the patient DVT prophylaxis: On a blood thinner at home GI Prophylaxis: Pepcid PT/OT: Pending Prognosis is guarded
--- NOTE | 2022-09-28 12:30 | P.CNNES ---
History of Present Illness Consult date: 09/28/22 Requesting physician: Michael Lemus Reason for Consult: vertigo, near syncope History of Present Illness: This is an 81-year-old gentleman who presented emergency department because of recurrent recurrent episodes of dizziness. He is accompanied with his . According to the patient has been having recurrent episodes that got worse in the last 2 weeks but he's been having this since at least July in which he'll have a buzzing the sound head to be diaphoretic feels dizzy like things are spinning and then he'll fall to the ground without loss of consciousness and his blood pressure at that time will be extremely high. Initially it was thought was due to atrial fibrillation in which the patient got the ablation but he continues to have these episodes. The last 2 weeks is episode I got worse and a gain with these episodes she'll fall to ground without loss of consciousness and feeling diet diaphoretic dizzy blood pressure be elevated. He had one episode in the last 2 weeks in which she his eyes rolled back he lost consciousness while in the episode lasted for 2 minutes and he had some mild confusion afterwards but no shaking with this episode no urinary or bowel incontinence no tongue bite and this episode was witnessed by his . He denies having any seizures. He had an episode of vomiting in the last 2 days with these dizzy spells. Patient has a history of atrial fibrillation status post ablation and is on Eliquis. He presented to our facility with a blood pressure of 200 to 210's/100. Of note patient has an old right ankle fusion that is at least 30-40 years old. He has a left knee pain that old as well as a right hip pain. Some other workup in our facility consisted of. CT of the head is reported as mild degenerative and remote ischemic microvascular white matter changes. No acute hemorrhage or mass effect. Sinusitis with air-fluid level involving left maxillary sinus suggestive possible acute component. Correlate clinically. Review of Systems Review of system: The 12 point system was reviewed and apparent positive and ne gative per HPI. Past Medical History Past Medical History: Atrial Fibrillation, CVA/TIA, Hyperlipidemia, Hypertension, Pneumonia, Prostate Disorder, Skin Disorder, Vascular Disorder Additional Past Medical History / Comment(s): environmental allergies, bowel resection, bladder stones, blister and cellulitis issues in lower extremities , states TIA Bailey 25 2023 no residual issues. See Dr Milligan's H& P History of Any Multi-Drug Resistant Organisms: MRSA Date of last positivie culture/infection: 02/14/20 MDRO Source:: Right Thigh Past Surgical History: Appendectomy, Back Surgery, Bowel Resection, Heart Catheterization, Orthopedic Surgery Additional Past Surgical History / Comment(s): sinus surgery x3 including deviated septum, yaneth. carotid endarterectomy, rt ankle fusion with plates and screws, pain procedures, surg. to remove bladder stones, cardioversion 2019 and a failed cardioversion 03/2022, back surg. 2018, arthroscopy left knee arch studies, back surgery 2010, VANDANA 06/2022, afib ablation 07/2022 Past Anesthesia/Blood Transfusion Reactions: Postoperative Nausea & Vomiting (PONV) Additional Past Anesthesia/Blood Transfusion Reaction / Comment(s): happened many years ago Past Psychological History: No Psychological Hx Reported Smoking Status: Former smoker Past Alcohol Use History: Occasional Additional Past Alcohol Use History / Comment(s): smoked pipe when younger none for 47 years Past Drug Use History: None Reported Additional Drug Use History / Comment(s): hemp cream - Past Family History Mother Family Medical History: Cancer Additional Family Medical History / Comment(s): breast Father Family Medical History: Cancer Additional Family Medical History / Comment(s): testicular Medications and Allergies Home Medications Medication Instructions Recorded Confirmed Type Tamsulosin HCl [Flomax] 0.4 mg PO HS 12/08/18 09/27/22 History Apixaban [Eliquis] 5 mg PO BID 04/07/22 09/27/22 History Metoprolol Tartrate [Lopressor] 75 mg PO BID 04/07/22 09/27/22 History hydrALAZINE HCL [Apresoline] 25 mg PO TID PRN 04/07/22 09/27/22 History Clopidogrel [Plavix] 75 mg PO DAILY 07/22/22 09/27/22 History Losartan Potassium 100 mg PO HS 07/22/22 09/27/22 History Atorvastatin [Lipitor] 80 mg PO HS 09/14/22 09/27/22 History Levalbuterol Hfa Inhaler [Xopenex 1 - 2 puff INHALATION RT-Q6H PRN 09/14/22 09/27/22 History Hfa Inhaler] hydroCHLOROthiazide [Hydrodiuril] 12.5 mg PO DAILY #30 cap 09/16/22 09/27/22 Rx Allergies Allergy/AdvReac Type Severity Reaction Status Date / Time cephalexin [From Keflex] Allergy Rash/Hives Verified 09/27/22 14:40 Physical Examination - Vital Signs Vital Signs: Vital Signs Temp Pulse Pulse Resp BP BP Pulse Ox 09/28/22 08:00 98.2 F 77 16 155/80 96 09/28/22 04:00 98.3 F 14 197/109 96 09/28/22 00:00 98.2 F 72 12 161/73 95 09/27/22 22:00 74 14 168/77 96 09/27/22 21:00 77 18 158/80 96 09/27/22 19:30 70 18 134/76 96 09/27/22 18:57 98.1 F 71 18 116/57 97 09/27/22 18:05 70 18 121/62 97 09/27/22 17:18 98.2 F 16 130/47 96 09/27/22 17:05 89 18 178/82 98 09/27/22 16:21 72 16 174/90 96 09/27/22 15:51 81 200/102 95 09/27/22 14:51 104 H 18 216/103 97 09/27/22 14:14 81 16 219/103 97 09/27/22 13:06 73 18 217/103 97 09/27/22 12:00 73 8 L 216/100 95 09/27/22 11:23 214/107 95 09/27/22 11:17 95.7 F L 74 18 214/107 94 L Intake and Output 09/27/22 09/28/22 09/28/22 22:59 06:59 14:59 Intake Total 300 Output Total 400 200 200 Balance -400 -200 100 Intake: Intake, IV Titration 300 Amount Sodium Chloride 0.9% 1, 300 000 ml @ 75 mls/hr IV . [id number] [facility] Rx#:[id number] Output: Urine 400 200 200 Other: Voiding Method Urinal Urinal Urinal # Voids 2 1 Weight 90.718 kg GENERAL: The patient is lying in bed and is not in acute distress. NEUROLOGICAL: Higher mental function: The patient is awake, alert, oriented to self, place and time. Patient is following commands. No aphasia and no neglect. Cranial nerves: The pupils are round, equal and reactive to light and accommodation. Visual chaudhary are full to confrontation throughout. Extraocular movement is intact no nystagmus is noted. Facial sensation is normal to touch throughout. The facial strength is normal throughout. Hearing is normal bilaterally to hand rub. Tongue is midline and moved [id number] without any difficulty. No dysarthria is noted. Shoulder shrug is normal bilaterally. Motor: Gait is antalgic but not requiring any assistance any not swaying towards one side or other. The strength is 5 over 5 throughout. Normal tone and bulk. Cerebellum: Normal finger to nose heel to myers bilaterally. Sensation: Sensation is normal to touch throughout. Reflexes (right/left): Right ankle and patellar are 1+. Otherwise 2+ throughout. Plantars are mute bilaterally. Results - Laboratory Findings CBC and BMP: 09/27/22 12:10 09/27/22 12:10 Abnormal Lab Findings: Abnormal Labs 09/27/22 09/27/22 09/27/22 12:10 12:10 12:10 WBC 10.7 H APTT 20.8 L BUN 32 H Glucose 142 H Total Bilirubin 1.5 H Assessment and Plan Assessment: This is an 81-year-old woman with history of atrial fibrillation status post ablation and is on eliquis who presented because of recurrent vertigo with the sensation of buzzing sensation prior to episode, falling to the ground feeling spinning sensation being diaphoretic and blood pressure being elevated. With one of the episode he lost consciousness with eye rolling back. Patient's symptoms has been more frequent in the last 2 weeks. He presented to our facility with a blood pressure as high 210/100 Acute vertigo, diaphoretic, buzzing sensation elevated blood pressure with presyncope associated with them: Unknown exact cause. Unsure if sorely due to uncontrolled hypertension. Rule out central cause such as seizure since one episode he lost consicousness. Also rule out cardiac in etiology. Hypertensive urgency History of bilateral carotid endartectomy History of coronary artery disease History of hypertension History of TIA History of atrial fibrillation s/p ablation on eliquis. History of lower extremity cellulitis Peripheral vascular disease Plan: I ordered MRI of the brain with and without, CT angiography of the head and neck to rule out any stroke or any significant stenosis I ordered orthostatic vitals I ordered the TSH and hemoglobin A1c to rule out any other causes that can be causing her vertigo. Cardiology is consulted We'll defer the rest of the medical management to primary team The plan is discussed with patient and his who is at bedside. Thank you for the consultation. Time with Patient: Greater than 30
--- NOTE | 2022-09-28 13:31 | CT ---
EXAMINATION TYPE: CT angio head neck CT DLP: 538.6 mGycm, Automated exposure control for dose reduction was used. DATE OF EXAM: 09/28/2022 1:14 PM COMPARISON: CT brain 09/27/2022 carotid ultrasound 09/15/2022. CLINICAL INDICATION:Male, 81 years old with history of vertigo; PHH, vertigo TECHNIQUE: Axially acquired helical CT angiogram of the head and neck was obtained with contrast util izing 65 cc of Isovue-370 administered intravenously. Axial images are supplemented with 3D reconstru ctions which were post-processed at an independent workstation. NASCET criteria used. FINDINGS: CTA HEAD: No evidence of acute intracranial hemorrhage, mass effect, or midline shift. The ventricles, sulci, a nd cisterns are unremarkable. The visualized portions of the left internal carotid artery, middle cerebral arteries, anterior cereb ral arteries, and posterior cerebral arteries are patent. The right internal carotid artery is opacif ied to the cavernous portion. The basilar artery is patent. The intracranial portions of both vertebral arteries are patent. CTA NECK: Right Carotid System: There is occlusion of the right common carotid artery just after its origin secondary to noncalcified plaque. There is subtle suggested contrast filling the carotid bulb. Severe atherosclerotic calcific ation and plaque identified within the carotid bulb. The external carotid artery is patent beginning at its origin. The internal carotid artery is occluded from its origin to the cavernous portion which is opacified from the MCA. Left Carotid System: The common carotid artery and external carotid artery are patent. The carotid bifurcation demonstrate s no evidence of hemodynamically significant stenosis. The remaining portions of the internal carotid artery demonstrate normal size without significant narrowing. The right vertebral artery is patent. The left vertebral artery is dominant. There is occlusion of th e distal aspect of the left vertebral artery secondary to calcified and noncalcified plaque beginning at the origin extending to the C5 level. There is a three-vessel aortic arch. The origins of the great vessels are patent. No evidence of hemo dynamically significant stenosis. Degenerative changes cervical spine. Postsurgical changes of both maxillary sinuses with air-fluid le delfina identified in the left maxillary sinus. Moderate mucosal thickening of the ethmoid sinus with com plete opacification of the left frontal sinus. Likely sclerotic osteomas identified within the anteri or bilateral ethmoid sinuses. Hypodense 8 mm nodule within the right thyroid lobe. IMPRESSION: 1. 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 Occlusion of the right internal carotid artery at its origin extending to the cavernous portio n. This corresponds to prior carotid ultrasound. The right external carotid artery is patent. 2. 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 3. No hemodynamically significant stenosis of the left carotid artery system. 4.No evidence of high-grade intracranial stenosis. 5. No evidence for aneurysm.
[2022-09-28] MEDS: ATORVASTATIN 80 MG TAB PO SCH (20:32)
[2022-09-28] MEDS: TAMSULOSIN 0.4 MG CAP.ER.24H PO SCH (20:32)
[2022-09-29] MEDS: SODIUM CHLORIDE 0.9% 1,000 ML IV SCH ×3 (00:10→16:59)
[2022-09-29] MEDS: hydrALAZINE HCL 20 MG/ML 1 ML VIAL IVP PRN ×2 (00:26→03:11)
[2022-09-29] MEDS: hydrALAZINE HCL 25 MG TAB PO PRN (06:36)
[2022-09-29] MEDS: hydroCHLOROthiazide 12.5 MG CAP PO SCH (08:44)
[2022-09-29] MEDS: CLOPIDOGREL 75 MG TAB PO SCH (08:44)
[2022-09-29] MEDS: METOPROLOL TARTRATE 25 MG TAB PO SCH ×2 (08:44→20:00)
[2022-09-29] MEDS: APIXABAN 5 MG TAB PO SCH ×2 (08:44→20:00)
[2022-09-29] MEDS: LOSARTAN 50 MG TAB PO SCH (08:44)
[2022-09-29 09:45] LABS: Basophils # (A) 0.1 k/uL (0-0.2); Basophils % (A) 0 %; Eosinophils % (A) 0 %; HCT 46.9 % (39.0-53.0); HGB 15.2 gm/dL (13.0-17.5); Lymphocytes # (A) 1.6 k/uL (1.0-4.8); Lymphocytes % (A) 11 %; MCH 28.6 pg (25.0-35.0); MCHC 32.4 g/dL (31.0-37.0); MCV 88.2 fL (80.0-100.0); Mean Platelet Volume 7.3; Monocytes # (A) 0.7 k/uL (0-1.0); Monocytes % (A) 5 %; Neutrophils # (A) 11.7 k/uL (1.3-7.7); Neutrophils % (A) 82 %; Platelet Count 271 k/uL (150-450); RBC 5.32 m/uL (4.30-5.90); WBC 14.2 k/uL (3.8-10.6)
[2022-09-29 09:50] LABS: African American GFR (CKD) >90 (>60 ml/min/1.73 sqM); Anion Gap 8 mmol/L; Blood Urea Nitrogen 30 mg/dL (9-20); Carbon Dioxide 25 mmol/L (22-30); Chloride 104 mmol/L (98-107); Glucose 140 mg/dL (74-99); Non-African American GFR(CKD) 79 (>60 ml/min/1.73 sqM); Potassium 4.5 mmol/L (3.5-5.1); Sodium 137 mmol/L (137-145)
--- NOTE | 2022-09-29 10:20 | P.PN ---
Subjective Progress Note Date: 09/29/22 HISTORY OF PRESENT ILLNESS: This is a 81-year-old male with a past medical history significant for carotid stenosis with previous bilateral carotid endarterectomy, nonobstructive coronary artery disease, hypertension, hyperlipidemia, cellulitis of lower extremities, TIA, persistent atrial fibrillation, previous cardioversion 2, and A. fib ablation. Patient follows in the office with Dr. Hickey. We have been asked to see the patient in consultation for near syncope, vertigo. Patients is at the bedside and providing the majority of the history. Patient recently underwent A. fib ablation on 08/23/2022. The patient has been doing well since his procedure. The patient had a hospitalization 2 weeks ago for syncope and Lasix was discontinued and patient started on hydrochlorothiazide, advised to monitor blood pressure at home and a seven-day event monitor. Patient returned due to near syncopal episodes. No chest pain or shortness of breath. EKG reveals sinus mechanism with PACs, no signs of acute ischemia Chest xray no acute process WBC 10.7, hemoglobin 14.2. INR 0.9. Electrolytes normal. BUN 32 and creatinine 0.82. Glucose 142. Troponin negative 1. Total bilirubin 1.5 oth erwise liver function tests are normal. Current home cardiac medications include Eliquis 5mg BID, atorvastatin 80 mg at bedtime, Plavix 75 mg daily, hydralazine 25 mg 3 times daily as needed, hydrochl orothiazide 12.5 mg daily, losartan 100 mg at bedtime, Lopressor 75 mg twice daily Most recent echocardiogram obtained in August 2022 revealed ejection fraction 55- 60%, mild concentric left Altagracia hypertrophy, mild left atrial dilation, moderate pulmonary hypertension RVSP 45 mmHg, mild right ventricular dilation. Cardiac catheterization history: June 2019 revealing noncritical coronary artery disease, codominant/right dominant system and normal filling pressures and no gradient. 09/29 Patient is seen today in follow-up. His blood pressure was running well yesterday and then during the night his blood pressure went high up to 205/102. Morning medications just been given. He is scheduled for MRI and EEG today. Patient's stated that yesterday he was able to walk the length alcohol back to his room without difficulty but was unable to have this morning. Patient has increasing fatigue today. Orthostatic vital signs borderline positive. Heart rate in the 70s and 80s. Repeat blood work reveals TSH 2.39. Potassium 4.5, creatinine 0.9. A1c was 6.6. WBC 14.2 and hemoglobin 15.2. PHYSICAL EXAM: VITAL SIGNS: Reviewed. GENERAL: Well-developed in no acute distress. HEENT: Head is normocephalic. Pupils are equal, round. Sclerae anicteric. Mucous membranes of the mouth are moist. Neck supple. No JVD or thyromegaly LUNGS: Respirations even and unlabored. Lungs essentially clear to auscultation bilaterally. HEART: Regular rate and rhythm. S1 and S2 heard. ABDOMEN: Soft. Nondistended. Nontender. EXTREMITIES: Normal range of motion. No clubbing or cyanosis. Peripheral pulse s intact. NEUROLOGIC: Awake and alert. Oriented x 3. ASSESSMENT: Near Syncope possibly secondary to nonsustained atrial tachycardia or bradycardic episode History of persistent atrial fibrillation, status post A. fib ablation, July 2022 Nonobstructive coronary artery disease Carotid stenosis with previous bilateral carotid endarterectomy Hypertension uncontrolled Hyperlipidemia History of lower extremity cellulitis Peripheral vascular disease History of TIA History of cardioversion 2 PLAN: No need to repeat echocardiogram Continue current home cardiac medications Add hydralazine 50 mg 3 times daily. Possible loop recorder at the time of discharge. Will discuss with Dr. Hickey. Further recommendations pending patient's course Nurse practitioner note has been reviewed by physician. Signing provider agrees with the documented findings, assessment, and plan of care. Objective - Vital Signs Vital signs: Vital Signs Temp 98.1 F 09/29/22 04:00 Pulse 86 09/29/22 04:00 Resp 14 09/29/22 04:00 BP 193/96 09/29/22 04:00 Pulse Ox 98 09/29/22 09:34 FiO2 Intake & Output 09/28/22 09/29/22 09/29/22 18:59 06:59 18:59 Intake Total 480 180 Output Total 200 Balance 280 180 Weight 99 kg Intake: Intake, IV Titration 300 Amount Sodium Chloride 0.9% 1, 300 000 ml @ 75 mls/hr IV . [id number] [facility] Rx#:[id number] Oral 180 180 Output: Urine 200 Other: Voiding Method Urinal Urinal # Voids 2 - Labs CBC & Chem 7: 09/29/22 09:19 09/29/22 09:19 Labs: Abnormal Lab Results - Last 24 Hours (Table) 09/28/22 09/29/22 Range/Units 11:32 09:19 WBC 14.2 H (3.8-10.6) k/uL Neutrophils # 11.7 H (1.3-7.7) k/uL Hemoglobin A1c 6.6 H (<=6.0) %
--- NOTE | 2022-09-29 11:13 | P.PN ---
Subjective This is a pleasant 81 years old male with past medical history of atrial fibrillation, diagnosed about 6 months ago and patient underwent ablation in July 2022,hypertension, hyperlipidemia, history of TIA in July 2022, coronary artery disease Patient was recently hospitalized 09/14-09/20 syncope at that time has been evaluated by healthcare administrator and cleared for discharge to 7 days of event monitor Patient follows up with Dr. Hickey and Dr. Dee for atrial fibrillation diagnosed earlier this year in February, eventually patient could be converted to sinus rhythm. Today he presents because of dizziness. He workup in the morning and went to the kitchen and while he was in the front of his sink he felt buzzing in his head which happened to him again before so he knew it was coming the dizziness so he got up to chair. This followed by spinning of the room and dizziness, which lasted until the patient got into the ambulance when the family called 911. While check his blood pressure was 150/70, 911 staff told him not to give blood pressure medication. So on admission his blood pressure was significantly elevated. Patient was confirmed to me he is taken losartan 100 mg and metoprolol 75 mg twice daily but he did not take his pills today. Patient vomited twice this morning when there was no blood. About 2-3 days ago his blood pressure was elevated. Patient contacted his PCP Dr. Serrano who increased his losartan to 100 mg daily, it was 50 mg before However patient denies any headache or dizziness currently, no weakness or numbness or tingling. No blurred vision or slurred speech. He denies any chest pain or dyspnea. No GI or urinary complaints. He denies smoking alcohol or illicit drugs He follows up with Dr. Jair Flowers for seizure. He follows up with Dr. Khalil for peripheral vascular disease Blood pressure elevated 214/107. A femoral and dorsal vitals are stable. He has mild leukocytosis 10.7, rest of CBC, INR, BMP and liver enzymes were unremarkable. Troponin is negative. EKG showing normal sinus rhythm at [address]-T changes. Due to C4 54. Chest x-ray: No acute pulmonary process CT of the brain: No acute process. Sinusitis with air-fluid level involving the left maxillary sinus suggests possible acute component. Call a Clinically In the emergency room received hydralazine 10 mg 1 and normal saline Admitted with cardiology and neurology consult 09/28/2022 Patient is dizziness has resolved were no more room spinning. No tinnitus or hearing loss. No other complaints Dermatology Physician evaluated the patient, he was started on Plavix and WHICH are his home medication. Atrial tachycardia versus bradycardia is suspected for the cause healthcare administrator may recommend loop recorder upon discharge, we'll defer this management to them. Also decreased Lopressor 75 mg down to 50 mg. 09/29/2022 No chest pain, no dizziness, no new complaint Hemodynamically stable, orthostatic is negative Blood pressure improved throughout the day. WBCs 14.2 as noted. Patient currently is afebrile and denies any other signs symptoms to suspect infection we will keep monitoring. MRI of the brain and EEG are pending Patient may need loop recorder upon discharge. Objective - Vital Signs Vital signs: Vital Signs Temp 97.7 F 09/29/22 08:00 Pulse 74 09/29/22 08:00 Resp 20 09/29/22 08:00 BP 133/66 09/29/22 08:00 Pulse Ox 98 09/29/22 09:34 FiO2 Intake & Output 09/28/22 09/29/22 09/29/22 18:59 06:59 18:59 Intake Total 480 180 Output Total 200 Balance 280 180 Weight 99 kg Intake: Intake, IV Titration 300 Amount Sodium Chloride 0.9% 1, 300 000 ml @ 75 mls/hr IV . [id number] [facility] Rx#:[id number] Oral 180 180 Output: Urine 200 Other: Voiding Method Urinal Urinal # Voids 2 - Exam GENERAL: The patient is alert and oriented x3, not in any acute distress. Well developed, well nourished. HEENT: Pupils are round and equally reacting to light. EOMI. No scleral icterus. No conjunctival pallor. Normocephalic, atraumatic. No pharyngeal erythema. No thyromegaly. CARDIOVASCULAR: S1 and S2 present. No murmurs, rubs, or gallops. PULMONARY: Chest is clear to auscultation, no wheezing , no crackles. ABDOMEN: Soft, nontender, nondistended, normoactive bowel sounds. No palpable organomegaly. MUSCULOSKELETAL: No joint swelling or deformity. EXTREMITIES: No cyanosis, clubbing, or pedal edema. NEUROLOGICAL: Gross neurological examination did not reveal any focal deficits. SKIN: No rashes. no petechiae. - Labs CBC & Chem 7: 09/29/22 09:19 09/29/22 09:19 Labs: Abnormal Lab Results - Last 24 Hours (Table) 09/28/22 09/29/22 09/29/22 Range/Units 11:32 09:19 09:19 WBC 14.2 H (3.8-10.6) k/uL Neutrophils # 11.7 H (1.3-7.7) k/uL BUN 30 H (9-20) mg/dL Glucose 140 H (74-99) mg/dL Hemoglobin A1c 6.6 H (<=6.0) % Assessment and Plan Assessment: Dizziness and vertigo, recurrent. He had similar episodes about 2-3 weeks ago Hypertension with urgency, present on admission Persistent atrial fibrillation on anticoagulation with eliquis. Status post atrial fibrillation in July 2022. History of cardioversion in 2019 History of TIA History of peripheral vascular disease History of bilateral carotid endarterectomy. Hypertension Hyperlipidemia History of prostate with BPH Plan: continue with antihypertensive medication and monitor blood pressure closely. Dermatology Physician, recommended lower Lopressor 75 mg down to 50 mg Telemetry Continue with the eliquis. Plavix and add Cardiology and neurology consult MRI and EEG are pending Labs and medication were reviewed.. Continue same treatment. Continue with symptomatic treatment. Resume home medication. Monitor labs and vitals. DVT and GI prophylaxis. Further recommendations as per clinical course of the patient DVT prophylaxis: eliquis GI Prophylaxis: Pepcid PT/OT: Pending Prognosis is guarded
--- NOTE | 2022-09-29 11:48 | P.PN ---
Subjective Progress Note Date: 09/29/22 Patient seen at bedside and he is accompanied with his . He has been doing well overall but today when he was walking in the his felt he seemed a bit off and dizzy. Otherwise he is doing much better compared to initial presentation. stated in the past he had 2 episodes were he passed out with eyes rolling back and it lasted a few minutes with some post infusion. did acknowledge and the patient had bilateral carotid carotid endarterectomy and in 2020 a became occluded (carotid's performed by Dr. Benitez). Objective - Vital Signs Vital signs: Vital Signs Temp 97.7 F 09/29/22 08:00 Pulse 74 09/29/22 08:00 Resp 20 09/29/22 08:00 BP 133/66 09/29/22 08:00 Pulse Ox 98 09/29/22 09:34 FiO2 Intake & Output 09/28/22 09/29/22 09/29/22 18:59 06:59 18:59 Intake Total 480 180 Output Total 200 Balance 280 180 Weight 99 kg Intake: Intake, IV Titration 300 Amount Sodium Chloride 0.9% 1, 300 000 ml @ 75 mls/hr IV . [id number] [facility] Rx#:[id number] Oral 180 180 Output: Urine 200 Other: Voiding Method Urinal Urinal # Voids 2 - Exam GENERAL: The patient is lying in bed and is not in acute distress. NEUROLOGICAL: Higher mental function: The patient is awake, alert, oriented to self, place and time. Patient is following commands. No aphasia and no neglect. Cranial nerves: The pupils are round, equal and reactive to light and accommodation. Visual chaudhary are full to confrontation throughout. Extraocular movement is intact no nystagmus is noted. Facial sensation is normal to touch throughout. The facial strength is normal throughout. Hearing is normal bilaterally to hand rub. Tongue is midline and moved [id number] without any difficulty. No dysarthria is noted. Shoulder shrug is normal bilaterally. Motor: Gait is antalgic but not requiring any assistance any not swaying towards one side or other. The strength is 5 over 5 throughout. Normal tone and bulk. Cerebellum: Normal finger to nose heel to myers bilaterally. Sensation: Sensation is normal to touch throughout. Reflexes (right/left): Right ankle and patellar are 1+. Otherwise 2+ throughout. Plantars are mute bilaterally. Some other workup in our facility consisted of. TSH: 2.90 HbA1c: 6.6 CT of the head is reported as mild degenerative and remote ischemic eric rovascular white matter changes. No acute hemorrhage or mass effect. Sinusitis with air-fluid level involving left maxillary sinus suggestive possible acute component. Correlate clinically. CT angiography of the head and neck was reported as occlusion of the right common carotid artery at its origin with possible trace flow in the carotid bulb. Occlusive right internal carotid artery at the origin extending to the cavernous portion. This corresponds to the prior carotid ultrasound. Right external carotid artery is patent. Occlusive of the left vertebral artery at its origin extending to the C5 level with distal reconstitution. No hemodynamically significant stenosis of the left carotid artery system. No evidence of high-grade intracranial stenosis. No evidence - Labs CBC & Chem 7: 09/29/22 09:19 09/29/22 09:19 Labs: Abnormal Lab Results - Last 24 Hours (Table) 09/28/22 09/29/22 09/29/22 Range/Units 11:32 09:19 09:19 WBC 14.2 H (3.8-10.6) k/uL Neutrophils # 11.7 H (1.3-7.7) k/uL BUN 30 H (9-20) mg/dL Glucose 140 H (74-99) mg/dL Hemoglobin A1c 6.6 H (<=6.0) % Assessment and Plan Assessment: This is an 81-year-old woman with history of atrial fibrillation status post ablation and is on eliquis who presented because of recurrent vertigo with the sensation of buzzing sensation prior to episode, falling to the ground feeling spinning sensation being diaphoretic and blood pressure being elevated. With one of the episode he lost consciousness with eye rolling back. Patient's symptoms has been more frequent in the last 2 weeks. He presented to our facility with a blood pressure as high 210/100 Acute vertigo, diaphoretic, buzzing sensation elevated blood pressure with presyncope associated with them: Unknown exact cause. Unsure if sorely due to uncontrolled hypertension. Rule out central cause such as seizure since two episode he lost consicousness with eye rolling back. Also rule out cardiac in etiology. It seems patient has positive orthostatic vital and unsure if that is cause. 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 History of coronary artery disease History of hypertension History of TIA History of atrial fibrillation s/p ablation on eliquis. History of lower extremity cellulitis Peripheral vascular disease Plan: Pending MRI of the brain. Pending routine EEG. Orthostatic vitals is supine blood pressure is 193/96 in the sitting is 176/77 and standing is 189/74. There is a drop of eyesight blood pressure of more than 10 from supine to sitting. Recommend rechecking orthostatic vitals and if positive will defer management to primary team. 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 Recommend the patient to follow-up with intervention neurology team as an outpatient (Dr. Oro) within 1-2 weeks. Cardiology is consulted We'll defer the rest of the medical management to primary team The plan is discussed with patient and his who is at bedside. Also discussed with cardiology team. Time with Patient: Less than 30
[2022-09-29] MEDS: hydrALAZINE HCL 50 MG TAB PO SCH ×3 (13:52→20:00)
--- NOTE | 2022-09-29 14:02 | MR ---
EXAMINATION TYPE: MR brain wo/w con DATE OF EXAM: 09/29/2022 COMPARISON: CT brain 09/27/2022, CTA head and neck 09/28/2022 HISTORY: Vertigo, r/o peripheral stroke TECHNIQUE: Multiplanar, multisequence images of the brain and brainstem is performed without and with IV contras t, utilizing 9 mL intravenous Gadavist . FINDINGS: Single focus of restricted diffusion identified within the left cerebellum. There is no ext ra-axial fluid collection. Patchy periventricular and subcortical white matter T2/FLAIR hyperintense foci. Additional small remote ischemic injuries within both cerebellum. The ventricular system and ci sternal spaces are normal in size and appearance. The brain volume is age appropriate. There are 2 c alcifications was ultimately artifact within the fourth ventricle corresponding to CT. No susceptibil ity artifact to suggest microhemorrhage. Midline structures demonstrate normal morphology. The craniocervical junction appears within normal limits. Post contrast images demonstrate no abnormal enhancement. The dural venous sinuses appear pa tent. The is unremarkable. Air-fluid level with moderate mucosal thickening of the left maxillary sin us. Moderate mucosal thickening of the left ethmoid sinus. Complete opacification of the left frontal sinus. Mild mucosal thickening of the right anterior ethmoid sinus. IMPRESSION: 1. Small acute/subacute ischemic focus within the left cerebellum. 2. 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 3. No abnormal postcontrast enhancement. 4. Paranasal sinus disease with air-fluid level within the left maxillary sinus and complete opacific ation of left frontal sinus. Correlate for acute sinusitis.
[2022-09-29] MEDS: TAMSULOSIN 0.4 MG CAP.ER.24H PO SCH (20:00)
[2022-09-29] MEDS: ATORVASTATIN 80 MG TAB PO SCH (20:00)
--- NOTE | 2022-09-29 23:09 | EEG ---
ELECTROENCEPHALOGRAM REPORT CLINICAL HISTORY: This is an 81-year-old gentleman with syncopal episodes at home. The video EEG is obtained to evaluate for seizure epileptiform activity. RELEVANT MEDICATION: The patient is not on any antiepileptic drug. EEG TYPE: A routine 21-channel EEG is performed using the 10/20 electrode placement system. DESCRIPTION: Wakefulness is only obtained. During awake state, the posterior-dominant rhythm consists of low to moderate voltage of 9 hertz activity that is well modulated, well sustained. There is no physiological stage 2 sleep architecture. There is no focal slowing. Interictal and ictal is none. ACTIVATION PROCEDURE: Photic stimulation did not evoke a posterior driving response. There is no abnormality during the photic stimulation. Hyperventilation is not performed. CLINICAL INTERPRETATION: This is a normal routine EEG. There is no focal slowing, epileptiform discharge or seizure on the EEG. A normal routine EEG does not rule out underlying epilepsy. Clinical correlation is recommended. PEPE / TONYA: [id number] / MTDD
[2022-09-30] MEDS: hydrALAZINE HCL 20 MG/ML 1 ML VIAL IVP PRN (03:21)
[2022-09-30] MEDS: hydrALAZINE HCL 50 MG TAB PO SCH ×3 (06:08→20:07)
[2022-09-30] MEDS: LOSARTAN 50 MG TAB PO SCH (06:08)
[2022-09-30] MEDS: hydroCHLOROthiazide 12.5 MG CAP PO SCH (06:08)
[2022-09-30] MEDS: METOPROLOL TARTRATE 25 MG TAB PO SCH ×2 (06:08→20:08)
[2022-09-30] MEDS: APIXABAN 5 MG TAB PO SCH ×2 (06:08→20:08)
[2022-09-30] MEDS: CLOPIDOGREL 75 MG TAB PO SCH (06:09)
[2022-09-30 06:23] LABS: Glucose,Whole Blood 118 mg/dL (70-110)
[2022-09-30] MEDS ORDERED: CLINDAMYCIN 600 MG in DEXTROSE 5% IN WATER 50 ML IVPB STA ×2 (07:19)
[2022-09-30] MEDS ORDERED: MIDAZOLAM 2 MG/2 ML VIAL IVP ONE (07:48)
[2022-09-30] MEDS ORDERED: IV FLUID CONTINUATION 1,000 ML IV ONE (07:48)
[2022-09-30] MEDS ORDERED: LIDOCAINE 1% INJ 10MG/ML (20 ML MDV) SQ ONE (07:51)
[2022-09-30 08:27] LABS: Basophils % (A) 0 %; Eosinophils # (A) 0.1 k/uL (0-0.7); Eosinophils % (A) 0 %; HCT 46.8 % (39.0-53.0); HGB 14.7 gm/dL (13.0-17.5); Lymphocytes # (A) 1.8 k/uL (1.0-4.8); Lymphocytes % (A) 14 %; MCH 27.5 pg (25.0-35.0); MCHC 31.4 g/dL (31.0-37.0); MCV 87.7 fL (80.0-100.0); Mean Platelet Volume 7.4; Monocytes # (A) 0.8 k/uL (0-1.0); Monocytes % (A) 7 %; Neutrophils # (A) 9.5 k/uL (1.3-7.7); Neutrophils % (A) 77 %; Platelet Count 297 k/uL (150-450); RBC 5.34 m/uL (4.30-5.90); RDW 14.9 % (11.5-15.5); WBC 12.4 k/uL (3.8-10.6)
--- NOTE | 2022-09-30 08:43 | CC ---
CARDIAC CATHETERIZATION REPORT PROCEDURE PERFORMED: Loop recorder insertion. PERFORMED BY: Dr. Yung Hickey. ANESTHESIA: Moderate conscious sedation time was 10 minutes. The patient was administered Versed. Oxygen saturation, hemodynamics, and EKG were monitored closely. CLINICAL INFORMATION: Mr. Mejia Corona is an 81-year-old gentleman with a history of symptomatic atrial fib, for which he had ablation performed recently. He also has moderate noncritical CAD, hypertension, and hyperlipidemia and carotid disease. Because of recurrent episodes of near syncope requiring hospitalization, he was advised to have a loop recorder placement. The risks, benefits, options, rationale were explained. The patient and family understood all details and wished to proceed with the procedure. PROCEDURE NOTE: Under strict aseptic precautions and local anesthesia,while antibiotic was being infused as per protocol, a small stab incision was made in the left fourth intercostal space with the provided tool that came with the device. From the stab incision, the loop recorder was inserted in the lateral direction of the fourth intercostal space uneventfully. The loop recorder interrogation suggested a voltage of 0.25 mV. The loop recorder was set for a syncope protocol at a low rate of 40 and high rate of 146. The patient tolerated the procedure well without complication. LOOP RECORDER DETAILS: Wind [employer]urb[employer] Electrical Engineer: [employer] LINQ II, model LNQ22, serial number [id number]. The patient tolerated the procedure well without complication. MMODL / IJN: [id number] / MTDD
--- NOTE | 2022-09-30 09:42 | P.PN ---
Subjective Progress Note Date: 09/30/22 HISTORY OF PRESENT ILLNESS: This is a 81-year-old male with a past medical history significant for carotid stenosis with previous bilateral carotid endarterectomy, nonobstructive coronary artery disease, hypertension, hyperlipidemia, cellulitis of lower extremities, TIA, persistent atrial fibrillation, previous cardioversion 2, and A. fib ablation. Patient follows in the office with Dr. Hickey. We have been asked to see the patient in consultation for near syncope, vertigo. Patients is at the bedside and providing the majority of the history. Patient recently underwent A. fib ablation on 08/23/2022. The patient has been doing well since his procedure. The patient had a hospitalization 2 weeks ago for syncope and Lasix was discontinued and patient started on hydrochlorothiazide, advised to monitor blood pressure at home and a seven-day event monitor. Patient returned due to near syncopal episodes. No chest pain or shortness of breath. EKG reveals sinus mechanism with PACs, no signs of acute ischemia Chest xray no acute process WBC 10.7, hemoglobin 14.2. INR 0.9. Electrolytes normal. BUN 32 and creatinine 0.82. Glucose 142. Troponin negative 1. Total bilirubin 1.5 oth erwise liver function tests are normal. Current home cardiac medications include Eliquis 5mg BID, atorvastatin 80 mg at bedtime, Plavix 75 mg daily, hydralazine 25 mg 3 times daily as needed, hydrochl orothiazide 12.5 mg daily, losartan 100 mg at bedtime, Lopressor 75 mg twice daily Most recent echocardiogram obtained in August 2022 revealed ejection fraction 55- 60%, mild concentric left Altagracia hypertrophy, mild left atrial dilation, moderate pulmonary hypertension RVSP 45 mmHg, mild right ventricular dilation. Cardiac catheterization history: June 2019 revealing noncritical coronary artery disease, codominant/right dominant system and normal filling pressures and no gradient. 09/29 Patient is seen today in follow-up. His blood pressure was running well yesterday and then during the night his blood pressure went high up to 205/102. Morning medications just been given. He is scheduled for MRI and EEG today. Patient's stated that yesterday he was able to walk the length alcohol back to his room without difficulty but was unable to have this morning. Patient has increasing fatigue today. Orthostatic vital signs borderline positive. Heart rate in the 70s and 80s. Repeat blood work reveals TSH 2.39. Potassium 4.5, creatinine 0.9. A1c was 6.6. WBC 14.2 and hemoglobin 15.2. 8/3 The patient had loop recorder placed with Dr. Cifuentes already this morning. Patient has been ambulating in his room without any lightheadedness or dizziness. He does not have as much energy to walk the hallways feels somewhat fatigued. Patient had high blood pressure readings during the night received IV hydralazine and now systolic blood pressure is 98/52. Nursing is held this morning blood pressure medications. Heart rate has been in the 70s. Repeat CBC unremarkable. PHYSICAL EXAM: VITAL SIGNS: Reviewed. GENERAL: Well-developed in no acute distress. HEENT: Head is normocephalic. Pupils are equal, round. Sclerae anicteric. Mucous membranes of the mouth are moist. Neck supple. No JVD or thyromegaly LUNGS: Respirations even and unlabored. Lungs essentially clear to auscultation bilaterally. HEART: Regular rate and rhythm. S1 and S2 heard. ABDOMEN: Soft. Nondistended. Nontender. EXTREMITIES: Normal range of motion. No clubbing or cyanosis. Peripheral pulses intact. NEUROLOGIC: Awake and alert. Oriented x 3. ASSESSMENT: Near Syncope possibly secondary to nonsustained atrial tachycardia or bradycardic episode History of persistent atrial fibrillation, status post A. fib ablation, July 2022 Nonobstructive coronary artery disease Carotid stenosis with previous bilateral carotid endarterectomy Hypertension uncontrolled Hyperlipidemia History of lower extremity cellulitis Peripheral vascular disease History of TIA History of cardioversion 2 PLAN: No need to repeat echocardiogram Continue current medications Plan to monitor blood pressure later in the day and make recommendations for medications. At time of discharge, patient will follow-up with Dr. conway already in the office in 2 weeks. Nurse practitioner note has been reviewed by physician. Signing provider agrees with the documented findings, assessment, and plan of care. Objective - Vital Signs Vital signs: Vital Signs Temp 98.1 F 09/30/22 03:12 Pulse 76 09/30/22 06:12 Resp 18 09/29/22 23:08 BP 169/80 09/30/22 06:12 Pulse Ox 96 09/30/22 08:21 FiO2 Intake & Output 09/29/22 09/30/22 09/30/22 18:59 06:59 18:59 Intake Total 540 54 Output Total 225 Balance 315 54 Weight 88.5 kg Intake: IV 54 Oral 540 Output: Urine 225 Other: Voiding Method Urinal # Voids 2 - Labs CBC & Chem 7: 09/30/22 06:59 09/29/22 09:19 Labs: Abnormal Lab Results - Last 24 Hours (Table) 09/29/22 09/29/22 09/30/22 Range/Units 09:19 09:19 06:21 WBC 14.2 H (3.8-10.6) k/uL Neutrophils # 11.7 H (1.3-7.7) k/uL BUN 30 H (9-20) mg/dL Glucose 140 H (74-99) mg/dL POC Glucose (mg/dL) 118 H (70-110) mg/dL 09/30/22 Range/Units 06:59 WBC 12.4 H (3.8-10.6) k/uL Neutrophils # 9.5 H (1.3-7.7) k/uL BUN (9-20) mg/dL Glucose (74-99) mg/dL POC Glucose (mg/dL) (70-110) mg/dL
--- NOTE | 2022-09-30 13:08 | P.PN ---
Subjective Progress Note Date: 09/30/22 On follow-up seen the patient and the he is accompanied with his feels he is at baseline. Denies of any new neurological issues. Today the patient had a loop recorder placed. Objective - Vital Signs Vital signs: Vital Signs Temp 98.4 F 09/30/22 08:00 Pulse 76 09/30/22 06:12 Resp 16 09/30/22 08:00 BP 91/56 09/30/22 09:49 Pulse Ox 96 09/30/22 08:21 FiO2 Intake & Output 09/29/22 09/30/22 09/30/22 18:59 06:59 18:59 Intake Total 540 234 Output Total 225 Balance 315 234 Weight 88.5 kg Intake: IV 54 Oral 540 180 Output: Urine 225 Other: Voiding Method Urinal Urinal # Voids 2 - Exam GENERAL: The patient is lying in bed and is not in acute distress. NEUROLOGICAL: Higher mental function: The patient is awake, alert, oriented to self, place and time. Patient is following commands. No aphasia and no neglect. Cranial nerves: The pupils are round, equal and reactive to light and accommodation. Visual chaudhary are full to confrontation throughout. Extraocular movement is intact no nystagmus is noted. Facial sensation is normal to touch throughout. The facial strength is normal throughout. Hearing is normal bilaterally to hand rub. Tongue is midline and moved [id number] without any difficulty. No dysarthria is noted. Shoulder shrug is normal bilaterally. Motor: Gait is antalgic but not requiring any assistance any not swaying towards one side or other. The strength is 5 over 5 throughout. Normal tone and bulk. Cerebellum: Normal finger to nose heel to myers bilaterally. Sensation: Sensation is normal to touch throughout. Reflexes (right/left): Right ankle and patellar are 1+. Otherwise 2+ throughout. Plantars are mute bilaterally. Some other workup in our facility consisted of. TSH: 2.90 HbA1c: 6.6 CT of the head is reported as mild degenerative and remote ischemic microvascular white matter changes. No acute hemorrhage or mass effect. Sinusitis with air-fluid level involving left maxillary sinus suggestive possible acute component. Correlate clinically. CT angiography of the head and neck was reported as occlusion of the right common carotid artery at its origin with possible trace flow in the carotid bulb. Occlusive right internal carotid artery at the origin extending to the cavernous portion. This corresponds to the prior carotid ultrasound. Right external carotid artery is patent. Occlusive of the left vertebral artery at its origin extending to the C5 level with distal reconstitution. No hemodynamically significant stenosis of the left carotid artery system. No evidence of high-grade intracranial stenosis. No evidence Routine EEG is normal. There is no focal slowing, epileptiform discharges or seizure on the EEG. MRI the brain is reported as small acute/subacute ischemic focus within the left cerebellum. Small remote infarcts within both cerebellar hemisphere. No abnormal postcontrast enhancement. Paranasal sinus disease with air-fluid level within the left maxillary sinus and complete opacification of left frontal sinus. Correlate for acute sinusitis. Patient had recent 2D echo on 09/15/22: Which is reported as left ventricular ejection fraction of 55-60%. Mild concentric left ventricle hypertrophy. No significant regional wall motion abnormality. Mild left atrial dilation. Moderate pulmonary hypertension. No significant valvular disease. - Labs CBC & Chem 7: 09/30/22 06:59 09/29/22 09:19 Labs: Abnormal Lab Results - Last 24 Hours (Table) 09/30/22 09/30/22 Range/Units 06:21 06:59 WBC 12.4 H (3.8-10.6) k/uL Neutrophils # 9.5 H (1.3-7.7) k/uL POC Glucose (mg/dL) 118 H (70-110) mg/dL Assessment and Plan Assessment: This is an 81-year-old woman with history of atrial fibrillation status post ablation and is on eliquis who presented because of recurrent vertigo with the sensation of buzzing sensation prior to episode, falling to the ground feeling spinning sensation being diaphoretic and blood pressure being elevated. With one of the episode he lost consciousness with eye rolling back. Patient's symptoms has been more frequent in the last 2 weeks. He presented to our facility with a blood pressure as high 210/100 Acute vertigo, diaphoretic, buzzing sensation elevated blood pressure with presyncope associated with them: Patient had acute small focus left cerebellar ischemic stroke. No IV TPA since also the window and the risk outweighed the benefit. Also some of his symptoms could be due to his underlying the hypertension. Rule out any underlying atrial fibrillation. Patient had syncopal episode at home and had 2 episodes and throughout his life where his eyes rolled back and lost consciousness. Unsure if it's due to the cardiac etiology. Routine EEG is normal but cannot exclusively to rule out seizure but feel unlikely. 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 History of bilateral small infarcts within both cerebellar hemisphere on the MRI History of coronary artery disease History of hypertension History of TIA History of atrial fibrillation s/p ablation on eliquis. History of lower extremity cellulitis Peripheral vascular disease Plan: Patient is on home medication of Eliquis 5 mg a tablet twice a day and Plavix 75 mg daily. I stop Plavix since he failed the the medication and has a recent stroke. Therefore I started the patient on Brilinta 90 mg 1 tablet twice a day. Patient is on Lipitor 80 mg daily at bedtime. He has a loop recorder that was placed today to rule out any underlying arrhythmia causing his symptoms. Recommend the patient to follow-up with a neurologist as an outpatient and consider long-term EEG to capture these episodes. I ordered the lipid panel. Recommend getting limited 2-D echo especially since the patient had a recent the 2-D echo on 09/15/2022. Consider VANDANA. Orthostatic vitals is supine blood pressure is 193/96 in the sitting is 176/77 and standing is 189/74. There is a drop of eyesight blood pressure of more than 10 from supine to sitting. Recommend rechecking orthostatic vitals and if positive will defer management to primary team. 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 Recommend the patient to follow-up with intervention neurology team as an outpatient (Dr. Oro) within 1-2 weeks. Cardiology is on board We'll defer the rest of the medical management to primary team The plan is discussed with patient and his who is at bedside. Also discus sed with his nurse and primary attending. Time with Patient: Less than 30
[2022-09-30] MEDS: SODIUM CHLORIDE 0.9% 1,000 ML IV SCH ×2 (13:32)
--- NOTE | 2022-09-30 13:38 | P.PN ---
Subjective Progress Note Date: 09/30/22 81 years old male with past medical history of atrial fibrillation, diagnosed about 6 months ago and patient underwent ablation in July 2022,hypertension, hyperlipidemia, history of TIA in July 2022, coronary artery disease Patient was recently hospitalized 09/14-09/20 syncope at that time has been evalua vik by airborne operations superintendent and cleared for discharge to 7 days of event monitor Patient follows up with Dr. Hickey and Dr. Dee for atrial fibrillation diagnosed earlier this year in February, eventually patient could be converted to sinus rhythm. Today he presents because of dizziness. He workup in the morning and went to the kitchen and while he was in the front of his sink he felt buzzing in his hea d which happened to him again before so he knew it was coming the dizziness so he got up to chair. This followed by spinning of the room and dizziness, which lasted until the patient got into the ambulance when the family called 911. While check his blood pressure was 150/70, 911 staff told him not to give blood pressure medication. So on admission his blood pressure was significantly elevated. Patient was confirmed to me he is taken losartan 100 mg and metoprolol 75 mg twice daily but he did not take his pills today. Patient vomited twice this morning when there was no blood. About 2-3 days ago his blood pressure was elevated. Patient contacted his PCP Dr. Serrano who increased his losartan to 100 mg daily, it was 50 mg before However patient denies any headache or dizziness currently, no weakness or numbness or tingling. No blurred vision or slurred speech. He denies any chest pain or dyspnea. No GI or urinary complaints. He denies smoking alcohol or illicit drugs He follows up with Dr. Jair Flowers for seizure. He follows up with Dr. Khalil for peripheral vascular disease Blood pressure elevated 214/107. A femoral and dorsal vitals are stable. He has mild leukocytosis 10.7, rest of CBC, INR, BMP and liver enzymes were unremarkable. Troponin is negative. EKG showing normal sinus rhythm at [address]-T changes. Due to C4 54. Chest x-ray: No acute pulmonary process CT of the brain: No acute process. Sinusitis with air-fluid level involving the left maxillary sinus suggests possible acute component. Call a Clinically In the emergency room received hydralazine 10 mg 1 and normal saline Admitted with cardiology and neurology consult 09/28/2022 Patient is dizziness has resolved were no more room spinning. No tinnitus or hearing loss. No other complaints Sight Effects Specialist evaluated the patient, he was started on Plavix and WHICH are his home medication. Atrial tachycardia versus bradycardia is suspected for the cause airborne operations superintendent may recommend loop recorder upon discharge, we'll defer this management to them. Also decreased Lopressor 75 mg down to 50 mg. 09/29/2022 No chest pain, no dizziness, no new complaint Hemodynamically stable, orthostatic is negative Blood pressure improved throughout the day. WBCs 14.2 as noted. Patient currently is afebrile and denies any other signs symptoms to suspect infection we will keep monitoring. MRI of the brain and EEG are pending Patient may need loop recorder upon discharge. 09/30 patient seen and evaluated at bedside. MRI results discussed with patient. Echocardiogram ordered Objective - Vital Signs Vital signs: Vital Signs Temp 98.4 F 09/30/22 08:00 Pulse 76 09/30/22 06:12 Resp 16 09/30/22 08:00 BP 91/56 09/30/22 09:49 Pulse Ox 96 09/30/22 08:21 FiO2 Intake & Output 09/29/22 09/30/22 09/30/22 18:59 06:59 18:59 Intake Total 540 234 Output Total 225 Balance 315 234 Weight 88.5 kg Intake: IV 54 Oral 540 180 Output: Urine 225 Other: Voiding Method Urinal Urinal # Voids 2 - Exam PHYSICAL EXAMINATION: GENERAL: The patient is alert and oriented x3, not in any acute distress. Well developed, well nourished. HEENT: Pupils are round and equally reacting to light. EOMI. No scleral icterus. No conjunctival pallor. Normocephalic, atraumatic. No pharyngeal erythema. No thyromegaly. CARDIOVASCULAR: S1 and S2 present. No murmurs, rubs, or gallops. , Loop recorder in place PULMONARY: Chest is clear to auscultation, no wheezing or crackles. ABDOMEN: Soft, nontender, nondistended, normoactive bowel sounds. No palpable organomegaly. MUSCULOSKELETAL: No joint swelling or deformity. EXTREMITIES: No cyanosis, clubbing, or pedal edema. NEUROLOGICAL: Gross neurological examination did not reveal any focal deficits. SKIN: No rashes. - Labs CBC & Chem 7: 09/30/22 06:59 09/29/22 09:19 Labs: Abnormal Lab Results - Last 24 Hours (Table) 09/30/22 09/30/22 Range/Units 06:21 06:59 WBC 12.4 H (3.8-10.6) k/uL Neutrophils # 9.5 H (1.3-7.7) k/uL POC Glucose (mg/dL) 118 H (70-110) mg/dL Assessment and Plan Assessment: Acute CVA involving left cerebellar presented with Dizziness and vertigo, recurrent Hypertension with urgency, present on admission Persistent atrial fibrillation on anticoagulation with eliquis. Status post atrial fibrillation in July 2022. History of cardioversion in 2019 History of TIA History of peripheral vascular disease History of bilateral carotid endarterectomy. Hypertension Hyperlipidemia History of prostate with BPH Plan: * Consult obtained from cardiology and neurology * MRI brain reviewed, discussed with patient and does show remote infarcts as well as acute to subacute infarct in left cerebellar * Echocardiogram ordered * Continue Eliquis and brilanta, continue Lipitor * In regards to hypertension continue metoprolol, Cozaar, hydrochlorothiazide, hydralazine * History of BPH continue Flomax * Potential discharge within the next 24 * Physical therapy occupational therapy consulted
[2022-09-30] MEDS: TICAGRELOR 90 MG TAB PO SCH (20:07)
[2022-09-30] MEDS: TAMSULOSIN 0.4 MG CAP.ER.24H PO SCH (20:07)
[2022-09-30] MEDS: ATORVASTATIN 80 MG TAB PO SCH (20:07)
[2022-09-30 22:44] LABS: Chol/HDL Ratio 2.84 Ratio; LDL Cholesterol,Calculated 91.9 mg/dL (0.0-131.0)
[2022-10-01] MEDS: SODIUM CHLORIDE 0.9% 1,000 ML IV SCH ×2 (05:51→05:52)
[2022-10-01] MEDS: hydrALAZINE HCL 50 MG TAB PO SCH ×2 (07:39→15:23)
[2022-10-01] MEDS: APIXABAN 5 MG TAB PO SCH (07:39)
[2022-10-01] MEDS: LOSARTAN 50 MG TAB PO SCH (07:39)
[2022-10-01] MEDS: hydroCHLOROthiazide 12.5 MG CAP PO SCH (07:39)
[2022-10-01] MEDS: METOPROLOL TARTRATE 25 MG TAB PO SCH (07:39)
[2022-10-01] MEDS: TICAGRELOR 90 MG TAB PO SCH (07:40)
[2022-10-01 07:42] VITALS: RESP 16
[2022-10-01 08:45] LABS: African American GFR (CKD) 80 (>60 ml/min/1.73 sqM); Anion Gap 11 mmol/L; Blood Urea Nitrogen 33 mg/dL (9-20); Carbon Dioxide 22 mmol/L (22-30); Chloride 104 mmol/L (98-107); Glucose 147 mg/dL (74-99); Non-African American GFR(CKD) 69 (>60 ml/min/1.73 sqM); Potassium 4.5 mmol/L (3.5-5.1); Sodium 137 mmol/L (137-145)
[2022-10-01 11:41] VITALS: TEMP 98
--- NOTE | 2022-10-01 12:09 | P.PN ---
Subjective Progress Note Date: 10/01/22 HISTORY OF PRESENT ILLNESS: This is a 81-year-old male with a past medical history significant for carotid stenosis with previous bilateral carotid endarterectomy, nonobstructive coronary artery disease, hypertension, hyperlipidemia, cellulitis of lower extremities, TIA, persistent atrial fibrillation, previous cardioversion 2, and A. fib ablation. Patient follows in the office with Dr. Hickey. We have been asked to see the patient in consultation for near syncope, vertigo. Patients is at the bedside and providing the majority of the history. Patient recently underwent A. fib ablation on 08/23/2022. The patient has been doing well since his procedure. The patient had a hospitalization 2 weeks ago for syncope and Lasix was discontinued and patient started on hydrochlorothiazide, advised to monitor blood pressure at home and a seven-day event monitor. Patient returned due to near syncopal episodes. No chest pain or shortness of breath. EKG reveals sinus mechanism with PACs, no signs of acute ischemia Chest xray no acute process WBC 10.7, hemoglobin 14.2. INR 0.9. Electrolytes normal. BUN 32 and creatinine 0.82. Glucose 142. Troponin negative 1. Total bilirubin 1.5 oth erwise liver function tests are normal. Current home cardiac medications include Eliquis 5mg BID, atorvastatin 80 mg at bedtime, Plavix 75 mg daily, hydralazine 25 mg 3 times daily as needed, hydrochl orothiazide 12.5 mg daily, losartan 100 mg at bedtime, Lopressor 75 mg twice daily Most recent echocardiogram obtained in August 2022 revealed ejection fraction 55- 60%, mild concentric left Altagracia hypertrophy, mild left atrial dilation, moderate pulmonary hypertension RVSP 45 mmHg, mild right ventricular dilation. Cardiac catheterization history: June 2019 revealing noncritical coronary artery disease, codominant/right dominant system and normal filling pressures and no gradient. 09/29 Patient is seen today in follow-up. His blood pressure was running well yesterday and then during the night his blood pressure went high up to 205/102. Morning medications just been given. He is scheduled for MRI and EEG today. Patient's stated that yesterday he was able to walk the length alcohol back to his room without difficulty but was unable to have this morning. Patient has increasing fatigue today. Orthostatic vital signs borderline positive. Heart rate in the 70s and 80s. Repeat blood work reveals TSH 2.39. Potassium 4.5, creatinine 0.9. A1c was 6.6. WBC 14.2 and hemoglobin 15.2. 09/30 The patient had loop recorder placed with Dr. Cifuentes already this morning. Patient has been ambulating in his room without any lightheadedness or dizziness. He does not have as much energy to walk the hallways feels somewhat fatigued. Patient had high blood pressure readings during the night received IV hydralazine and now systolic blood pressure is 98/52. Nursing is held this morning blood pressure medications. Heart rate has been in the 70s. Repeat CBC unremarkable. 10/01 The patient denies any new complaints. He ambulated in the hallway without any difficulty yesterday and today. His heart rate has been stable remains in atrial fibrillation. Patient had loop recorder placed yesterday. Attending has ordered a repeat echocardiogram although patient just had one done in August. PHYSICAL EXAM: VITAL SIGNS: Reviewed. GENERAL: Well-developed in no acute distress. HEENT: Head is normocephalic. Pupils are equal, round. Sclerae anicteric. Mucous membranes of the mouth are moist. Neck supple. No JVD or thyromegaly LUNGS: Respirations even and unlabored. Lungs essentially clear to auscultation bilaterally. HEART: Regular rate and rhythm. S1 and S2 heard. ABDOMEN: Soft. Nondistended. Nontender. EXTREMITIES: Normal range of motion. No clubbing or cyanosis. Peripheral pulse s intact. NEUROLOGIC: Awake and alert. Oriented x 3. ASSESSMENT: Near Syncope possibly secondary to nonsustained atrial tachycardia or bradycardic episode History of persistent atrial fibrillation, status post A. fib ablation, July 2022 Nonobstructive coronary artery disease Carotid stenosis with previous bilateral carotid endarterectomy Hypertension uncontrolled Hyperlipidemia History of lower extremity cellulitis Peripheral vascular disease History of TIA History of cardioversion 2 PLAN: Continue current medications Patient is cleared for discharge, patient will follow-up with Dr. ALEXEY Hickey in the office in 2 weeks. Nurse practitioner note has been reviewed by physician. Signing provider agrees with the documented findings, assessment, and plan of care. Objective - Vital Signs Vital signs: Vital Signs Temp 98.0 F 10/01/22 11:39 Pulse 68 10/01/22 11:39 Resp 16 10/01/22 07:42 BP 151/72 10/01/22 11:39 Pulse Ox 99 10/01/22 11:39 FiO2 Intake & Output 09/30/22 10/01/22 10/01/22 18:59 06:59 18:59 Intake Total 514 260 Balance 514 260 Weight 90 kg Intake: IV 54 20 Invasive Line 1 20 Oral 460 240 Other: Voiding Method Urinal Urinal Urinal # Voids 1 1 - Labs CBC & Chem 7: 09/30/22 06:59 10/01/22 07:14 Labs: Abnormal Lab Results - Last 24 Hours (Table) 09/29/22 10/01/22 Range/Units 09:19 07:14 BUN 33 H (9-20) mg/dL Glucose 147 H (74-99) mg/dL HDL Cholesterol 61.70 H (40.00-60.00) mg/dL
--- NOTE | 2022-10-01 13:09 | P.PN ---
Subjective Progress Note Date: 10/01/22 The patient is seen at bedside and feels doing well. Denies any further episodes. feels he is doing well. Objective - Vital Signs Vital signs: Vital Signs Temp 98.0 F 10/01/22 11:39 Pulse 68 10/01/22 11:39 Resp 16 10/01/22 07:42 BP 151/72 10/01/22 11:39 Pulse Ox 99 10/01/22 11:39 FiO2 Intake & Output 09/30/22 10/01/22 10/01/22 18:59 06:59 18:59 Intake Total 514 260 Balance 514 260 Weight 90 kg Intake: IV 54 20 Invasive Line 1 20 Oral 460 240 Other: Voiding Method Urinal Urinal Urinal # Voids 1 1 - Exam GENERAL: The patient is lying in bed and is not in acute distress. NEUROLOGICAL: Higher mental function: The patient is awake, alert, oriented to self, place and time. Patient is following commands. No aphasia and no neglect. Cranial nerves: The pupils are round, equal and reactive to light and accommodation. Visual chaudhary are full to confrontation throughout. Extraocular movement is intact no nystagmus is noted. Facial sensation is normal to touch throughout. The facial strength is normal throughout. Hearing is normal bilaterally to hand rub. Tongue is midline and moved [id number] without any difficulty. No dysarthria is noted. Shoulder shrug is normal bilaterally. Motor: Gait is antalgic but not requiring any assistance any not swaying towards one side or other. The strength is 5 over 5 throughout. Normal tone and bulk. Cerebellum: Normal finger to nose heel to myers bilaterally. Sensation: Sensation is normal to touch throughout. Reflexes (right/left): Right ankle and patellar are 1+. Otherwise 2+ throughout. Plantars are mute bilaterally. Some other workup in our facility consisted of. TSH: 2.90 HbA1c: 6.6 Lipid panels triglyceride is 107, cholesterol 175, LDL is [address] of the head is reported as mild degenerative and remote ischemic microvascular white matter changes. No acute hemorrhage or mass effect. Sinusitis with air-fluid level involving left maxillary sinus suggestive possible acute component. Correlate clinically. CT angiography of the head and neck was reported as occlusion of the right common carotid artery at its origin with possible trace flow in the carotid bulb. Occlusive right internal carotid artery at the origin extending to the cavernous portion. This corresponds to the prior carotid ultrasound. Right external carotid artery is patent. Occlusive of the left vertebral artery at its origin extending to the C5 level with distal reconstitution. No hemodynamically significant stenosis of the left carotid artery system. No evidence of high-grade intracranial stenosis. No evidence Routine EEG is normal. There is no focal slowing, epileptiform discharges or seizure on the EEG. MRI the brain is reported as small acute/subacute ischemic focus within the left cerebellum. Small remote infarcts within both cerebellar hemisphere. No abnormal postcontrast enhancement. Paranasal sinus disease with air-fluid level within the left maxillary sinus and complete opacification of left frontal sinus. Correlate for acute sinusitis. Patient had recent 2D echo on 09/15/22: Which is reported as left ventricular ejection fraction of 55-60%. Mild concentric left ventricle hypertrophy. No significant regional wall motion abnormality. Mild left atrial dilation. Mode rate pulmonary hypertension. No significant valvular disease. - Labs CBC & Chem 7: 09/30/22 06:59 10/01/22 07:14 Labs: Abnormal Lab Results - Last 24 Hours (Table) 09/29/22 10/01/22 Range/Units 09:19 07:14 BUN 33 H (9-20) mg/dL Glucose 147 H (74-99) mg/dL HDL Cholesterol 61.70 H (40.00-60.00) mg/dL Assessment and Plan Assessment: This is an 81-year-old woman with history of atrial fibrillation status post ablation and is on eliquis who presented because of recurrent vertigo with the sensation of buzzing sensation prior to episode, falling to the ground feeling spinning sensation being diaphoretic and blood pressure being elevated. With one of the episode he lost consciousness with eye rolling back. Patient's symptoms has been more frequent in the last 2 weeks. He presented to our facility with a blood pressure as high 210/100 Acute vertigo, diaphoretic, buzzing sensation elevated blood pressure with presyncope associated with them: Patient had acute small focus left cerebellar ischemic stroke. No IV TPA since also the window and the risk outweighed the benefit. Also some of his symptoms could be due to his underlying the hypertension. Rule out any underlying atrial fibrillation. Patient had syncopal episode at home and had 2 episodes and throughout his life where his eyes rolled back and lost consciousness. Unsure if it's due to the cardiac etiology. Routine EEG is normal but cannot exclusively to rule out seizure but feel unlikely. 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 History of bilateral small infarcts within both cerebellar hemisphere on the MRI History of coronary artery disease History of hypertension History of TIA History of atrial fibrillation s/p ablation on eliquis. History of lower extremity cellulitis Peripheral vascular disease Plan: Patient is on home medication of Eliquis 5 mg a tablet twice a day and Plavix 75 mg daily. I stop Plavix since he failed the the medication and has a recent stroke. Therefore I started the patient on Brilinta 90 mg 1 tablet twice a day. Patient is on Lipitor 80 mg daily at bedtime. He has a loop recorder that was placed yesterday. to rule out any underlying arrhythmia causing his symptoms. Recommend the patient to follow-up with a neurologist as an outpatient and consider long-term EEG to capture these episodes. Recommend getting limited 2-D echo especially since the patient had a recent the 2-D echo on 09/15/2022. Consider VANDANA. Orthostatic vitals is supine blood pressure is 193/96 in the sitting is 176/77 and standing is 189/74. There is a drop of eyesight blood pressure of more than 10 from supine to sitting. Recommend rechecking orthostatic vitals and if positive will defer management to primary team. 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 Recommend the patient to follow-up with intervention neurology team as an outpatient (Dr. Oro) within 1-2 weeks. Cardiology is on board We'll defer the rest of the medical management to primary team The plan is discussed with patient and his who is at bedside. Also discussed with his nurse and primary attending. Time with Patient: Less than 30
--- NOTE | 2022-10-01 13:14 | CA ---
Transthoracic Echo Report Name: Mejia Corona Age: 81 Gender: M : 1940 Exam Date: 10/01/2022 11:30 Exam Location: [facility] Ht (in): 71 Wt (lb): 198 Ordering Physician: Yaima Osorio Attending/Referring Phys: [id number], Devon [employer] Tape Converter Operator Jono Mckeon Procedure CPT: Indications: LVF Cardiac Hx: Technical Quality: Fair Contrast 1: Total Dose (mL): Contrast 2: Total Dose (mL): MEASUREMENTS (Male / Female) Normal Values 2D ECHO LV Diastolic Diameter PLAX 4.3 cm 4.2 - 5.9 / 3.9 - 5.3 cm LV Systolic Diameter PLAX 2.7 cm IVS Diastolic Thickness 1.3 cm 0.6 - 1.0 / 0.6 - 0.9 cm LVPW Diastolic Thickness 1.3 cm 0.6 - 1.0 / 0.6 - 0.9 cm LV Relative Wall Thickness 0.6 RV Internal Dim ED PLAX 3.4 cm LVOT Diameter 2.0 cm Aortic Root Diameter 3.1 cm LV Diastolic Volume MOD BP 44.0 cm??? 67 - 155 / 56 - 104 cm??? LV Systolic Volume MOD BP 17.6 cm??? 22 - 58 / 19 - 49 cm??? LV Ejection Fraction MOD BP 60.1 % >= 55 % LV Cardiac Index MOD BP 864.6 cm???/min???m??? LV Diastolic Volume MOD 4C 39.7 cm??? LV Systolic Volume MOD 4C 18.0 cm??? LV Ejection Fraction MOD 4C 54.6 % LV Cardiac Index MOD 4C 709.5 cm???/min???m??? LV Diastolic Length 4C 6.4 cm LV Systolic Length 4C 5.5 cm LV Diastolic Volume MOD 2C 48.3 cm??? LV Systolic Volume MOD 2C 17.0 cm??? LV Ejection Fraction MOD 2C 64.8 % LV Cardiac Index MOD 2C 1025.9 cm???/min???m??? LV Diastolic Length 2C 6.4 cm LV Systolic Length 2C 5.4 cm LA Volume 52.4 cm??? 18 - 58 / 22 - 52 cm??? DOPPLER AV Peak Velocity 131.0 cm/s AV Peak Gradient 6.9 mmHg TR Peak Velocity 91.3 cm/s TR Peak Gradient 3.3 mmHg Right Ventricular Systolic Press 8.3 mmHg FINDINGS Left Ventricle Normal LV size. Mild concentric LVH. Left ventricular ejection fraction is estimated at 55-60 %. Right Ventricle Right Atrium Left Atrium LA volume index= 25ml/m2 Mitral Valve Aortic Valve Tricuspid Valve Pulmonic Valve Pericardium No pericardial effusion. Aorta CONCLUSIONS 1. Normal left ventricle size and systolic function 2. Patent foramina ovale with [id number] shunting Previewed by: Dr. Santiago Casper MD (Electronically Signed) Final Date: 01 October 2022 13:13
[2022-10-01 15:05] VITALS: BP 164/76; PULSE 77
--- NOTE | 2022-10-01 15:58 | P.DS ---
Providers Date of admission: 09/29/22 07:07 Expected date of discharge: 10/01/22 Attending physician: Esa Sanchez MD Consults: 09/27/22 14:18 Consult Physician Routine Consulting Provider: Ceferino Meza Consult Reason/Comments: Vertigo/near syncope Do you want consulting provider notified?: Yes Consult Physician Routine Consulting Provider: Santiago Casper Consult Reason/Comments: Vertigo/near syncope Do you want consulting provider notified?: Yes Primary care physician: [facility] Course: 81 years old male with past medical history of atrial fibrillation, diagnosed about 6 months ago and patient underwent ablation in July 2022,hypertension, hyperlipidemia, history of TIA in July 2022, coronary artery disease Patient was recently hospitalized 09/14-09/20 syncope at that time has been evaluated by barytes grinder and cleared for discharge to 7 days of event monitor Patient follows up with Dr. Hickey and Dr. Dee for atrial fibrillation diagnosed earlier this year in February, eventually patient could be converted to sinus rhythm. Today he presents because of dizziness. He workup in the morning and went to the kitchen and while he was in the front of his sink he felt buzzing in his head which happened to him again before so he knew it was coming the dizziness so he got up to chair. This followed by spinning of the room and dizziness, which lasted until the patient got into the ambulance when the family called 911. While check his blood pressure was 150/70, 911 staff told him not to give blood pressure medication. So on admission his blood pressure was significantly elevated. Patient was confirmed to me he is taken losartan 100 mg and metoprolol 75 mg twice daily but he did not take his pills today. Patient vomited twice this morning when there was no blood. About 2-3 days ago his blood pressure was elevated. Patient contacted his PCP Dr. Serrano who increased his losartan to 100 mg daily, it was 50 mg before However patient denies any headache or dizziness currently, no weakness or numbness or tingling. No blurred vision or slurred speech. He denies any chest pain or dyspnea. No GI or urinary complaints. He denies smoking alcohol or illicit drugs He follows up with Dr. Jair Flowers for seizure. He follows up with Dr. Khalil for peripheral vascular disease Blood pressure elevated 214/107. A femoral and dorsal vitals are stable. He has mild leukocytosis 10.7, rest of CBC, INR, BMP and liver enzymes were unremarkable. Troponin is negative. EKG showing normal sinus rhythm at [address]-T changes. Due to C4 54. Chest x-ray: No acute pulmonary process CT of the brain: No acute process. Sinusitis with air-fluid level involving the left maxillary sinus suggests possible acute component. Call a Clinically In the emergency room received hydralazine 10 mg 1 and normal saline Admitted with cardiology and neurology consult 09/28/2022 Patient is dizziness has resolved were no more room spinning. No tinnitus or hearing loss. No other complaints Paving Block Cutter evaluated the patient, he was started on Plavix and WHICH are his home medication. Atrial tachycardia versus bradycardia is suspected for the cause barytes grinder may recommend loop recorder upon discharge, we'll defer this management to them. Also decreased Lopressor 75 mg down to 50 mg. 09/29/2022 No chest pain, no dizziness, no new complaint Hemodynamically stable, orthostatic is negative Blood pressure improved throughout the day. WBCs 14.2 as noted. Patient currently is afebrile and denies any other signs symptoms to suspect infection we will keep monitoring. MRI of the brain and EEG are pending Patient may need loop recorder upon discharge. 09/30 patient seen and evaluated at bedside. MRI results discussed with patient. Echocardiogram ordered 10/01: Patient seen and everted bedside, patient asymptomatic. Echocardiogram completed limited echo done. Echo reviewed with Dr. Casper. Concern for PFO. This was communicated to patient and will need outpatient follow-up with cardiology. Continue current management including Eliquis and will enter. Patient discharged home in stable condition PHYSICAL EXAMINATION: GENERAL: The patient is alert and oriented x3, not in any acute distress. Well developed, well nourished. HEENT: Pupils are round and equally reacting to light. EOMI. No scleral icterus. No conjunctival pallor. Normocephalic, atraumatic. No pharyngeal erythema. No thyromegaly. CARDIOVASCULAR: S1 and S2 present. No murmurs, rubs, or gallops. , Loop recorder in place PULMONARY: Chest is clear to auscultation, no wheezing or crackles. ABDOMEN: Soft, nontender, nondistended, normoactive bowel sounds. No palpable organomegaly. MUSCULOSKELETAL: No joint swelling or deformity. EXTREMITIES: No cyanosis, clubbing, or pedal edema. NEUROLOGICAL: Gross neurological examination did not reveal any focal deficits. SKIN: No rashes. Assessment: Acute CVA involving left cerebellar presented with Dizziness and vertigo, recurrent Hypertension with urgency, present on admission Persistent atrial fibrillation on anticoagulation with eliquis. Status post atrial fibrillation in July 2022. History of cardioversion in 2019 New diagnoses of PFO History of TIA History of peripheral vascular disease History of bilateral carotid endarterectomy. Hypertension Hyperlipidemia History of prostate with BPH Plan: * Consult obtained from cardiology and neurology * MRI brain reviewed, discussed with patient and does show remote infarcts as well as acute to subacute infarct in left cerebellar * Echocardiogram limited echo raise suspicion for PFO * Continue Eliquis and brilanta, continue Lipitor * In regards to hypertension continue metoprolol, Cozaar, hydrochlorothiazide, hydralazine * History of BPH continue Flomax * Discharged home in stable condition with plan to follow up outpatient with cardiology and PCP Patient Condition at Discharge: Stable Plan - Discharge Summary Discharge Rx Participant: Yes New Discharge Prescriptions: New Ticagrelor [Brilinta] 90 mg PO BID #60 tab Losartan [Cozaar] 100 mg PO DAILY #30 tab Continue Tamsulosin HCl [Flomax] 0.4 mg PO HS Atorvastatin [Lipitor] 80 mg PO HS Levalbuterol Hfa Inhaler [Xopenex Hfa Inhaler] 1 - 2 puff INHALATION RT-Q6H PRN PRN Reason: Shortness Of Breath Metoprolol Tartrate [Lopressor] 75 mg PO BID hydrALAZINE HCL [Apresoline] 25 mg PO TID PRN PRN Reason: BP GREATER THAN 150/88 Apixaban [Eliquis] 5 mg PO BID hydroCHLOROthiazide [Hydrodiuril] 12.5 mg PO DAILY #30 cap Discontinued Clopidogrel [Plavix] 75 mg PO DAILY Losartan Potassium 100 mg PO HS Discharge Medication List Tamsulosin HCl [Flomax] 0.4 mg PO HS 12/08/18 [History] Apixaban [Eliquis] 5 mg PO BID 04/07/22 [History] Metoprolol Tartrate [Lopressor] 75 mg PO BID 04/07/22 [History] hydrALAZINE HCL [Apresoline] 25 mg PO TID PRN 04/07/22 [History] Atorvastatin [Lipitor] 80 mg PO HS 09/14/22 [History] Levalbuterol Hfa Inhaler [Xopenex Hfa Inhaler] 1 - 2 puff INHALATION RT-Q6H PRN 09/14/22 [History] hydroCHLOROthiazide [Hydrodiuril] 12.5 mg PO DAILY #30 cap 09/16/22 [Rx] Losartan [Cozaar] 100 mg PO DAILY #30 tab 10/01/22 [Rx] Ticagrelor [Brilinta] 90 mg PO BID #60 tab 10/01/22 [Rx] Follow up Appointment(s)/Referral(s): Nikko Sultana MD [Primary Care Provider] - 1-2 days Arlene Oro MD [STAFF PHYSICIAN] - 1 Week (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
--- NOTE | 2022-10-05 08:01 | CDI ---
Documentation Clarification Form Date: 10/05/22 From: Sharri Tripp Admit Date: 09/29/2022 07:07:00 AM Patient Name: Mejia Corona Visit Number: [id number] Discharge Date: 10/01/2022 05:00:00 PM ATTENTION: The Clinical Documentation Specialists (CDI) and [facility] Coding Staff appreciate your assistance in clarifying documentation. Please respond to the clarification below the line at the bottom and electronically sign. The CDI & [facility] Coding staff will review the response and follow-up if needed. Please note: Queries are made part of the Legal Health Record. If you have any questions, please contact the author of this message via ITS. Dr. Fina Amador, The patients principal diagnosis the diagnosis that was chiefly responsible for the admission - has not been clearly identified and clarification is requested. The patient presented with dizziness. He was in front of his sink he felt buzzing in his head which happened to him again before so he knew it was coming thedizziness so he got up to chair. This followed by spinning of the room anddizziness, which lasted until the patient got into the ambulance when the family called 911. History/Risk factors: atrial fibrillation s/p cardioversion, hx of TIA, HLD, PVD Clinical Indicators: Dizziness and vertigo, recurrent. Similar episodes about 2- 3 weeks prior. Hypertension with urgency, POA. Brain WWW: Small acute/subacuteischemicfocus within the left cerebellum. Small remoteinfarctswithin both cerebellar hemispheres. Vital Signs: T 95.7, P 74, R 18, BP 217/107, O2 Sat 94 Treatment: IV fluids, IV Hydralazine HCL, tigre recorder implanted Cardiology: Near Syncopepossibly secondary tononsustained atrial tachycardiaor bradycardicepisode. Neurology: Acutevertigo,diaphoretic, buzzingsensationelevated blood pressurewith presyncopeassociated with them: Unknown exact cause. Unsure if sorely due to uncontrolledhypertension. Rule outcentral cause such asseizuresince one episode he lost consciousness. Also rule out cardiac in etiology. In your professional opinion, can you please clarify which diagnosis, after study, was the reason chiefly responsible for the admission? [ ] Hypertensive urgency [ y ] CVA left cerebellar [ ] Other, please specify [ ] Unable to determine MTDD
== END 2022-10-01 17:00 | disposition home or self-care (01) | DRG 41 ==
LOC: EC 11:17 → 3SCARD 14:18 → OBSVTOIN 09-29 07:07 → 3SCARD 10-01 01:47
PROVIDERS: ADMIT Internal Medicine; ATTEND Internal Medicine
PROC: 0JH632Z Insertion of Monitoring Device into Chest Subcutaneous Tissue and Fascia, Percutaneous Approach (ICD-10-PCS; principal; 2022-09-30 07:30)
DX: I63.542 Cerebral infarction due to unspecified occlusion or stenosis of left cerebellar artery (principal); I48.19 Other persistent atrial fibrillation; Q21.12 Patent foramen ovale; I27.20 Pulmonary hypertension, unspecified; I11.9 Hypertensive heart disease without heart failure; I73.9 Peripheral vascular disease, unspecified; Z28.310 Unvaccinated for COVID-19; I16.0 Hypertensive urgency; I25.10 Atherosclerotic heart disease of native coronary artery without angina pectoris; I65.02 Occlusion and stenosis of left vertebral artery; N40.0 Benign prostatic hyperplasia without lower urinary tract symptoms; E78.5 Hyperlipidemia, unspecified; M25.562 Pain in left knee; M25.551 Pain in right hip; Z79.01 Long term (current) use of anticoagulants; Z79.02 Long term (current) use of antithrombotics/antiplatelets; Z79.899 Other long term (current) drug therapy; Z86.73 Personal history of transient ischemic attack (TIA), and cerebral infarction without residual deficits; Z87.891 Personal history of nicotine dependence; Z98.1 Arthrodesis status; Z87.442 Personal history of urinary calculi; Z86.14 Personal history of Methicillin resistant Staphylococcus aureus infection; Z88.1 Allergy status to other antibiotic agents; W19.XXXA Unspecified fall, initial encounter
CPT/HCPCS: 33285; 36415; 70450; 70496; 70498; 70553; 71046; 80048; 80053; 80061; 83036; 83605; 84443; 84484; 85025; 85610; 85730; 93005; 93308; 94760; 95816; 96361; 96374; 96375; 96376; 99285

== ENCOUNTER 2023-02-04 12:08 | Inpatient (IN) | payer MEDICARE ==
--- NOTE | 2023-02-04 12:33 | ED ---
General Adult HPI - General Chief complaint: Chest Pain Stated complaint: high heart rate Time Seen by Provider: 02/04/23 12:29 Source: patient, family, RN notes reviewed Mode of arrival: wheelchair Limitations: no limitations - History of Present Illness Initial comments: Patient is a pleasant 82-year-old male presenting to the emergency department with concerns for tachycardia. Patient has had some fatigue and exertional dyspnea, unclear how long despite being asked multiple times. Patient states symptoms worsened today, especially exertional dyspnea. Patient has some at rest. Patient does not have palpitations. No chest pain. Patient does have history of similar symptoms previously associated with atrial fibrillation. Patient did have ablation done around 6 months ago. - Related Data Home Medications Medication Instructions Recorded Confirmed Tamsulosin HCl [Flomax] 0.4 mg PO HS 12/08/18 09/27/22 Apixaban [Eliquis] 5 mg PO BID 04/07/22 09/27/22 Metoprolol Tartrate [Lopressor] 75 mg PO BID 04/07/22 09/27/22 Atorvastatin [Lipitor] 80 mg PO HS 09/14/22 09/27/22 Levalbuterol Hfa Inhaler [Xopenex 1 - 2 puff INHALATION RT-Q6H PRN 09/14/22 09/27/22 Hfa Inhaler] Previous Rx's Medication Instructions Recorded hydroCHLOROthiazide [Hydrodiuril] 12.5 mg PO DAILY #30 cap 09/16/22 Losartan [Cozaar] 100 mg PO DAILY #30 tab 10/01/22 Ticagrelor [Brilinta] 90 mg PO BID #60 tab 10/01/22 hydrALAZINE HCL [Apresoline] 50 mg PO TID #90 tab 10/01/22 Allergies Allergy/AdvReac Type Severity Reaction Status Date / Time cephalexin [From Keflex] Allergy Rash/Hives Verified 09/27/22 14:40 Review of Systems ROS Statement: Those systems with pertinent positive or pertinent negative responses have been documented in the HPI. ROS Other: All systems not noted in ROS Statement are negative. Constitutional: Denies: fever Eyes: Denies: eye pain ENT: Denies: ear pain Respiratory: Reports: as per HPI. Denies: cough Cardiovascular: Denies: chest pain, palpitations Endocrine: Reports: fatigue Gastrointestinal: Denies: abdominal pain Musculoskeletal: Denies: back pain Past Medical History Past Medical History: Atrial Fibrillation, CVA/TIA, Hyperlipidemia, Hypertension, Pneumonia, Prostate Disorder, Skin Disorder, Vascular Disorder Additional Past Medical History / Comment(s): environmental allergies, bowel resection, bladder stones, blister and cellulitis issues in lower extremities , states TIA June 22 2022 no residual issues. See Dr Milligan's H& P History of Any Multi-Drug Resistant Organisms: MRSA Date of last positivie culture/infection: 02/14/20 MDRO Source:: Right Thigh Past Surgical History: Appendectomy, Back Surgery, Bowel Resection, Heart Catheterization, Orthopedic Surgery Additional Past Surgical History / Comment(s): sinus surgery x3 including deviated septum, yaneth. carotid endarterectomy, rt ankle fusion with plates and screws, pain procedures, surg. to remove bladder stones, cardioversion 2019 and a failed cardioversion 03/2022, back surg. 2018, arthroscopy left knee arch studies, back surgery 2010, VANDANA 06/2022, afib ablation 07/2022 Past Anesthesia/Blood Transfusion Reactions: Postoperative Nausea & Vomiting (PONV) Additional Past Anesthesia/Blood Transfusion Reaction / Comment(s): happened many years ago Past Psychological History: No Psychological Hx Reported Smoking Status: Former smoker Past Alcohol Use History: Occasional Past Drug Use History: None Reported - Past Family History Mother Family Medical History: Cancer Additional Family Medical History / Comment(s): breast Father Family Medical History: Cancer Additional Family Medical History / Comment(s): testicular General Exam Limitations: no limitations General appearance: alert, in no apparent distress Head exam: Present: normocephalic Eye exam: Present: normal appearance Neck exam: Present: normal inspection Respiratory exam: Present: normal lung sounds bilaterally. Absent: rales Cardiovascular Exam: Present: tachycardia Expanded Peripheral pulses: 2+: Radial (R), Radial (L) GI/Abdominal exam: Present: soft. Absent: tenderness Extremities exam: Present: normal inspection. Absent: pedal edema, calf tenderness Neurological exam: Present: alert Psychiatric exam: Present: normal affect, normal mood Skin exam: Present: normal color Course Vital Signs 02/04/23 02/04/23 02/04/23 12:11 12:34 12:39 Temperature 97.3 F L Pulse Rate 145 H 141 H 141 H Pulse Rate [ 141 H Pulse Oximetery ] Respiratory 20 20 22 Rate Blood Pressure 107/52 113/80 113/80 O2 Sat by Pulse 99 98 97 Oximetry 02/04/23 02/04/23 02/04/23 12:45 13:00 13:15 Temperature Pulse Rate 142 H 144 H 135 H Pulse Rate [ Pulse Oximetery ] Respiratory 22 21 18 Rate Blood Pressure 113/80 103/69 89/63 O2 Sat by Pulse 98 98 97 Oximetry 02/04/23 13:30 Temperature Pulse Rate 125 H Pulse Rate [ Pulse Oximetery ] Respiratory 20 Rate Blood Pressure 91/68 O2 Sat by Pulse 98 Oximetry EKG Findings - EKG Results: EKG: interpreted by ERMD (Atrial flutter with a rate of 142.), normal axis, normal QRS, normal ST/T Medical Decision Making - Medical Decision Making Was pt. sent in by a medical professional or institution (, PA, [employer]LE PUNCH[employer]AP, urgent care, hospital, or half-way...) When possible be specific @ -No Did you speak to anyone other than the patient for history (EMS, parent, family, police, friend...)? What history was obtained from this source @ - helps provide history including several heart rate some blood pressures. Did you review nursing and triage notes (agree or disagree)? Why? @ -I reviewed and agree with nursing and triage notes Were old charts reviewed (outside hosp., previous admission, EMS record, old EKG, old radiological studies, urgent care reports/EKG's, half-way records)? Report findings @ -Previous history reviewed including history of A. fib Differential Diagnosis (chest pain, altered mental status, abdominal pain women, abdominal pain men, vaginal bleeding, weakness, fever, dyspnea, syncope, headache, dizziness, GI bleed, back pain, seizure, CVA, palpatations, mental health, musculoskeletal)? @ -DDifferential Dyspnea: Coronary syndrome, arrhythmia, tamponade, asthma, COPD, pulmonary embolism, pneumonia, pneumothorax, pulmonary effusion, anaphylaxis, diabetic ketoacidosis, flailed chest, pulmonary contusion, diaphragmatic rupture, anemia, neuromuscular, this is not meant to be an all-inclusive list. EKG interpreted by me (3pts min.). @ -As above X-rays interpreted by me (1pt min.). @ -Chest x-ray shows no acute process. Loop recorder present. CT interpreted by me (1pt min.). @ -None done U/S interpreted by me (1pt. min.). @ -None done What testing was considered but not performed or refused? (CT, X-rays, U/S, labs)? Why? @ -None What meds were considered but not given or refused? Why? @ -None Did you discuss the management of the patient with other professionals (professionals i.e. DrGwen, PA, [employer] P[employer], lab, RT, psych nurse, community mental health social worker, 3rd pressman, teacher, patrol community service officer, community case manager)? Give summary @ -[facility] physician paged who will admit covering Dr. Sultana Was smoking cessation discussed for >3mins.? @ -No Was critical care preformed (if so, how long)? @ -32 minutes critical care time provided. Were there social determinants of health that impacted care today? How? (Ho melessness, low income, unemployed, alcoholism, drug addiction, transportation, low edu. Level, literacy, decrease access to med. care, retirement, rehab)? @ -No Was there de-escalation of care discussed even if they declined (Discuss DNR or withdrawal of care, Hospice)? DNR status @ -No What co-morbidities impacted this encounter? (DM, HTN, Smoking, COPD, CAD, Cancer, CVA, ARF, Chemo, Hep., AIDS, mental health diagnosis, sleep apnea, morbid obesity)? @ -None Was patient admitted / discharged? Hospital course, mention meds given and route, prescriptions, significant lab abnormalities, going to OR and other pertinent info. @ -Patient reevaluated. Heart rate improved 125. Patient will be admitted with cardiac consult. Admission orders placed. Undiagnosed new problem with uncertain prognosis? @ -No Drug Therapy requiring intensive monitoring for toxicity (Heparin, Nitro, Insulin, Cardizem)? @ -Patient is on Cardizem drip that will need monitoring. Were any procedures done? @ -No Diagnosis/symptom? @ -A. fib with RVR Acute, or Chronic, or Acute on Chronic? @ -A. fib with RVR, acute Uncomplicated (without systemic symptoms) or Complicated (systemic symptoms)? @ -default Side effects of treatment? @ -No Exacerbation, Progression, or Severe Exacerbation? @ -No Poses a threat to life or bodily function? How? (Chest pain, [place], [place], pneumonia, PE, COPD, DKA, ARF, appy, cholecystitis, CVA, Diverticulitis, Homicidal, Suicidal, threat to staff... and all critical care pts) @ -Potential for cardiac ischemia or heart failure - Lab Data Result diagrams: 02/04/23 12:18 02/04/23 12:18 Lab Results 02/04/23 02/04/23 02/04/23 Range/Units 12:18 12:18 12:18 WBC 11.0 H (3.8-10.6) k/uL RBC 4.94 (4.30-5.90) m/uL Hgb 14.9 (13.0-17.5) gm/dL Hct 45.4 (39.0-53.0) % MCV 92.0 (80.0-100.0) fL MCH 30.2 (25.0-35.0) pg MCHC 32.8 (31.0-37.0) g/dL RDW 13.3 (11.5-15.5) % Plt Count 270 (150-450) k/uL MPV 7.3 Neutrophils % 67 % Lymphocytes % 21 % Monocytes % 7 % Eosinophils % 3 % Basophils % 1 % Neutrophils # 7.3 (1.3-7.7) k/uL Lymphocytes # 2.3 (1.0-4.8) k/uL Monocytes # 0.8 (0-1.0) k/uL Eosinophils # 0.3 (0-0.7) k/uL Basophils # 0.1 (0-0.2) k/uL PT 11.0 (10.0-12.5) sec INR 1.0 (<1.2) APTT 26.8 (22.0-30.0) sec Sodium 140 (137-145) mmol/L Potassium 4.7 (3.5-5.1) mmol/L Chloride 103 (98-107) mmol/L Carbon Dioxide 28 (22-30) mmol/L Anion Gap 9 mmol/L BUN 26 H (9-20) mg/dL Creatinine 1.08 (0.66-1.25) mg/dL Est GFR (CKD-EPI)AfAm 73 (>60 ml/min/1.73 sqM) Est GFR (CKD-EPI)NonAf 63 (>60 ml/min/1.73 sqM) Glucose 138 H (74-99) mg/dL Calcium 9.6 (8.4-10.2) mg/dL Magnesium 1.9 (1.6-2.3) mg/dL Total Bilirubin 2.3 H (0.2-1.3) mg/dL AST 23 (17-59) U/L ALT 21 (4-49) U/L Alkaline Phosphatase 112 (38-126) U/L Troponin I (0.000-0.034) ng/mL Total Protein 6.7 (6.3-8.2) g/dL Albumin 3.8 (3.5-5.0) g/dL 02/04/23 Range/Units 12:18 WBC (3.8-10.6) k/uL RBC (4.30-5.90) m/uL Hgb (13.0-17.5) gm/dL Hct (39.0-53.0) % MCV (80.0-100.0) fL MCH (25.0-35.0) pg MCHC (31.0-37.0) g/dL RDW (11.5-15.5) % Plt Count (150-450) k/uL MPV Neutrophils % % Lymphocytes % % Monocytes % % Eosinophils % % Basophils % % Neutrophils # (1.3-7.7) k/uL Lymphocytes # (1.0-4.8) k/uL Monocytes # (0-1.0) k/uL Eosinophils # (0-0.7) k/uL Basophils # (0-0.2) k/uL PT (10.0-12.5) sec INR (<1.2) APTT (22.0-30.0) sec Sodium (137-145) mmol/L Potassium (3.5-5.1) mmol/L Chloride (98-107) mmol/L Carbon Dioxide (22-30) mmol/L Anion Gap mmol/L BUN (9-20) mg/dL Creatinine (0.66-1.25) mg/dL Est GFR (CKD-EPI)AfAm (>60 ml/min/1.73 sqM) Est GFR (CKD-EPI)NonAf (>60 ml/min/1.73 sqM) Glucose (74-99) mg/dL Calcium (8.4-10.2) mg/dL Magnesium (1.6-2.3) mg/dL Total Bilirubin (0.2-1.3) mg/dL AST (17-59) U/L ALT (4-49) U/L Alkaline Phosphatase (38-126) U/L Troponin I 0.018 (0.000-0.034) ng/mL Total Protein (6.3-8.2) g/dL Albumin (3.5-5.0) g/dL Critical Care Time Critical Care Time: Yes Total Critical Care Time: 32 Disposition Clinical Impression: Atrial fibrillation with RVR Disposition: ADMITTED IP TO THIS HOSP Is patient prescribed a controlled substance at d/c from ED?: No Referrals: Nikko Sultana MD [Primary Care Provider] - 1-2 days Time of Disposition: 13:51
[2023-02-04] MEDS ORDERED: DILTIAZEM DRIP BOLUS FROM BAG 1 MG SOLN IV ONE (12:39)
[2023-02-04 12:43] LABS: Basophils # (A) 0.1 k/uL (0-0.2); Basophils % (A) 1 %; Eosinophils # (A) 0.3 k/uL (0-0.7); Eosinophils % (A) 3 %; HCT 45.4 % (39.0-53.0); HGB 14.9 gm/dL (13.0-17.5); Lymphocytes # (A) 2.3 k/uL (1.0-4.8); Lymphocytes % (A) 21 %; MCH 30.2 pg (25.0-35.0); MCHC 32.8 g/dL (31.0-37.0); Mean Platelet Volume 7.3; Monocytes # (A) 0.8 k/uL (0-1.0); Monocytes % (A) 7 %; Neutrophils # (A) 7.3 k/uL (1.3-7.7); Neutrophils % (A) 67 %; Platelet Count 270 k/uL (150-450); RBC 4.94 m/uL (4.30-5.90); RDW 13.3 % (11.5-15.5)
[2023-02-04 13:00] LABS: ALT 21 U/L (4-49); AST 23 U/L (17-59); African American GFR (CKD) 73 (>60 ml/min/1.73 sqM); Albumin 3.8 g/dL (3.5-5.0); Alkaline Phosphatase 112 U/L (38-126); Anion Gap 9 mmol/L; Blood Urea Nitrogen 26 mg/dL (9-20); Calcium 9.6 mg/dL (8.4-10.2); Carbon Dioxide 28 mmol/L (22-30); Chloride 103 mmol/L (98-107); Glucose 138 mg/dL (74-99); Magnesium 1.9 mg/dL (1.6-2.3); Non-African American GFR(CKD) 63 (>60 ml/min/1.73 sqM); Potassium 4.7 mmol/L (3.5-5.1); Sodium 140 mmol/L (137-145); Total Bilirubin 2.3 mg/dL (0.2-1.3); Total Protein 6.7 g/dL (6.3-8.2)
[2023-02-04] MEDS: DILTIAZEM 125 MG in SODIUM CHLORIDE 0.9% 100 ML IV SCH (13:00)
[2023-02-04 13:10] LABS: Partial Thromboplastin Time 26.8 sec (22.0-30.0)
--- NOTE | 2023-02-04 13:18 | XR ---
EXAMINATION TYPE: XR chest 2V DATE OF EXAM: 02/04/2023 COMPARISON: 09/27/2022 HISTORY: Chest pain TECHNIQUE: Frontal and lateral views of the chest are obtained. FINDINGS: There is no focal air space opacity, pleural effusion, or pneumothorax seen. The cardiac silhouette size is within normal limits. There is a moderate degenerative change of the left shoulder which is stable.. IMPRESSION: No acute cardiopulmonary process.
[2023-02-04] MEDS ORDERED: NALOXONE 0.4 MG/ML 1 ML VIAL IV PRN (13:51)
[2023-02-04 13:59] LABS: T4, Free (Free Thyroxine) 1.52 ng/dL (0.78-2.19)
[2023-02-04] MEDS ORDERED: SODIUM CHLORIDE 0.9% 500 ML 500 ML IV ONE (14:22)
[2023-02-04] MEDS ORDERED: hydrALAZINE HCL 50 MG TAB PO PRN (14:58)
[2023-02-04] MEDS ORDERED: ALBUTEROL NEBULIZED 2.5 MG/3 ML INHALATION PRN (15:14)
[2023-02-04] MEDS: TAMSULOSIN 0.4 MG CAP.ER.24H PO SCH (21:03)
[2023-02-04] MEDS: ATORVASTATIN 80 MG TAB PO SCH (21:03)
[2023-02-04] MEDS: APIXABAN 5 MG TAB PO SCH (21:04)
[2023-02-04] MEDS: TICAGRELOR 90 MG TAB PO SCH (21:04)
[2023-02-04] MEDS: METOPROLOL TARTRATE 25 MG TAB PO SCH (21:04)
[2023-02-04] MEDS: hydrALAZINE HCL 50 MG TAB PO SCH (23:57)
[2023-02-05] MEDS: DILTIAZEM 125 MG in SODIUM CHLORIDE 0.9% 100 ML IV SCH ×2 (03:28→15:15)
[2023-02-05] MEDS: APIXABAN 5 MG TAB PO SCH ×2 (08:47→20:33)
[2023-02-05] MEDS: TICAGRELOR 90 MG TAB PO SCH ×2 (08:47→20:34)
[2023-02-05] MEDS: hydroCHLOROthiazide 12.5 MG CAP PO SCH (08:47)
[2023-02-05] MEDS: METOPROLOL TARTRATE 25 MG TAB PO SCH (08:47)
[2023-02-05] MEDS: LOSARTAN 50 MG TAB PO SCH (08:49)
[2023-02-05 09:17] LABS: Basophils % (A) 1 %; Eosinophils # (A) 0.2 k/uL (0-0.7); Eosinophils % (A) 2 %; HCT 41.8 % (39.0-53.0); HGB 13.7 gm/dL (13.0-17.5); Lymphocytes # (A) 1.8 k/uL (1.0-4.8); Lymphocytes % (A) 20 %; MCH 29.7 pg (25.0-35.0); MCHC 32.7 g/dL (31.0-37.0); Mean Platelet Volume 7.4; Monocytes # (A) 0.7 k/uL (0-1.0); Monocytes % (A) 8 %; Neutrophils # (A) 6.3 k/uL (1.3-7.7); Neutrophils % (A) 68 %; Platelet Count 265 k/uL (150-450); RDW 13.3 % (11.5-15.5); WBC 9.2 k/uL (3.8-10.6)
[2023-02-05 09:29] LABS: ALT 21 U/L (4-49); AST 26 U/L (17-59); African American GFR (CKD) >90 (>60 ml/min/1.73 sqM); Albumin 3.4 g/dL (3.5-5.0); Alkaline Phosphatase 117 U/L (38-126); Anion Gap 9 mmol/L; Blood Urea Nitrogen 27 mg/dL (9-20); Calcium 8.9 mg/dL (8.4-10.2); Carbon Dioxide 25 mmol/L (22-30); Chloride 104 mmol/L (98-107); Glucose 140 mg/dL (74-99); Non-African American GFR(CKD) 79 (>60 ml/min/1.73 sqM); Potassium 4.2 mmol/L (3.5-5.1); Sodium 138 mmol/L (137-145); Total Bilirubin 2.3 mg/dL (0.2-1.3); Total Protein 6.2 g/dL (6.3-8.2)
[2023-02-05] MEDS ORDERED: METOPROLOL TARTRATE 25 MG TAB PO STA (09:38)
--- NOTE | 2023-02-05 09:45 | P.CRDCN ---
History of Present Illness History of present illness: HISTORY OF PRESENT ILLNESS: This is a 82-year-old male with a past medical history significant for atrial fibrillation, atrial flutter, cardioversion 3, ablation in July 2022, CVA/TIA, hypertension, hyperlipidemia, noncritical CAD, and former nicotine dependence. P ivania follows in the office with Dr. Hickey. We have been asked to see the patient in consultation for atrial fibrillation. Patient examined at the bedside. Patients is present at the bedside. Patient states yesterday morning he began to feel short of breath. He denied having any palpitations. His states that she took his blood pressure and his systolic blood pressure was in the 90s and he usually runs [id number]. She also reports his heart rate was in the 160s. Patient presented to the hospital for further evaluation. The patient was found to be in atrial flutter with a heart rate in the 140s. He was started on IV Cardizem which is infusing at 10 mg an hour. Telemetry this m orning reveals atrial fibrillation with a heart rate around 120. The patient currently denies any chest pain or pressure. He denies any shortness of breath at rest but reports shortness of breath with minimal exertion. Blood pressure stable with a recent reading of 125/80 * EKG reveals atrial flutter with a heart rate of 142 * Chest xray negative for acute process * Laboratory data: Troponin 0.018. 0.055. 0.069. ProBNP 4770. TSH 2.320 * Current home cardiac medications include Eliquis 5 mg twice a day, losartan 50 mg daily, metoprolol tartrate 75 mg twice a day, Brilinta 90mg twice a day, hydrochlorothiazide 12.5 mg daily, atorvastatin 80 mg at night, and hydralazine 50 mg at night * Most recent echocardiogram obtained in September 2022 revealing ejection fraction 55-60% * Cardiac catheterization history: June 2019 revealing noncritical CAD. Normal filling pressures. No gradient. REVIEW OF SYSTEMS: At the time of my exam: CONSTITUTIONAL: Denies fever or chills. HEENT: Denies blurred vision, vision changes, or eye pain. Denies hemoptysis CARDIOVASCULAR: Denies chest pain. Denies orthopnea. Denies PND. Denies palpitations RESPIRATORY: Denies shortness of breath. GASTROINTESTINAL: Denies abdominal pain. Denies nausea or vomiting. HEMATOLOGIC: Denies bleeding disorders. GENITOURINARY: Denies any blood in urine. SKIN: Denies pruitis. Denies rash. PHYSICAL EXAM: VITAL SIGNS: Reviewed. GENERAL: Well-developed in no acute distress. HEENT: Head is normocephalic. Pupils are equal, round. Sclerae anicteric. Mucous membranes of the mouth are moist. Neck supple. No JVD or thyromegaly LUNGS: Respirations even and unlabored. Lungs essentially clear to auscultation bilaterally. HEART: Tachycardic. Irregular rate and rhythm. S1 and S2 heard. ABDOMEN: Soft. Nondistended. Nontender. EXTREMITIES: Normal range of motion. No clubbing or cyanosis. Peripheral pulses intact. No lower extremity edema NEUROLOGIC: Awake and alert. Oriented x 3. ASSESSMENT: Shortness of breath Paroxysmal atrial fibrillation/typical atrial flutter with RVR History of A. fib ablation, July 2022 History of cardioversion 3 History of TIA/CVA, 2 per Hypertension Hyperlipidemia Noncritical CAD per cardiac catheterization June 2019 Former nicotine dependence PLAN: No need to repeat echocardiogram performed in September 2022 Increase metoprolol to 100 mg twice a day Continue IV Cardizem Continue additional cardiac medications Patient to undergo VANDANA/cardioversion this afternoon with Dr. Casper Further recommendations pending patient course Nurse practitioner note has been reviewed by physician. Signing provider agrees with the documented findings, assessment, and plan of care. Past Medical History Past Medical History: Atrial Fibrillation, CVA/TIA, Hyperlipidemia, Hypertension, Pneumonia, Skin Disorder, Vascular Disorder Additional Past Medical History / Comment(s): environmental allergies, bowel resection, bladder stones, blister and cellulitis issues in lower extremities , states TIA June 22 2022 no residual issues. See Dr Milligan's H& P History of Any Multi-Drug Resistant Organisms: MRSA Date of last positivie culture/infection: 02/14/20 MDRO Source:: Right Thigh Past Surgical History: Appendectomy, Back Surgery, Bowel Resection, Heart Catheterization, Orthopedic Surgery Additional Past Surgical History / Comment(s): sinus surgery x3 including deviat ed septum, yaneth. carotid endarterectomy, rt ankle fusion with plates and screws, pain procedures, surg. to remove bladder stones, cardioversion 2019 and a failed cardioversion 03/2022, back surg. 2018, arthroscopy left knee arch studies, back surgery 2010, VANDANA 06/2022, afib ablation 07/2022 Past Anesthesia/Blood Transfusion Reactions: Postoperative Nausea & Vomiting (PONV) Additional Past Anesthesia/Blood Transfusion Reaction / Comment(s): happened many years ago Past Psychological History: No Psychological Hx Reported Smoking Status: Former smoker Past Alcohol Use History: Occasional Additional Past Alcohol Use History / Comment(s): smoked pipe when younger none for 47 years Past Drug Use History: None Reported Additional Drug Use History / Comment(s): hemp cream, CBD gummies for sleep aid - Past Family History Mother Family Medical History: Cancer Additional Family Medical History / Comment(s): breast Father Family Medical History: Cancer Additional Family Medical History / Comment(s): testicular Medications and Allergies Home Medications Medication Instructions Recorded Confirmed Type Tamsulosin HCl [Flomax] 0.4 mg PO HS 12/08/18 02/04/23 History Apixaban [Eliquis] 5 mg PO BID 04/07/22 02/04/23 History Metoprolol Tartrate [Lopressor] 75 mg PO BID 04/07/22 02/04/23 History Atorvastatin [Lipitor] 80 mg PO HS 09/14/22 02/04/23 History Levalbuterol Hfa Inhaler [Xopenex 1 - 2 puff INHALATION RT-Q6H PRN 09/14/22 02/04/23 History Hfa Inhaler] hydroCHLOROthiazide [Hydrodiuril] 12.5 mg PO DAILY #30 cap 09/16/22 02/04/23 Rx Ticagrelor [Brilinta] 90 mg PO BID #60 tab 10/01/22 02/04/23 Rx Losartan [Cozaar] 50 mg PO DAILY 02/04/23 02/04/23 History Meclizine [Antivert] 12.5 mg PO Q8HR PRN 02/04/23 02/04/23 History hydrALAZINE HCL [Apresoline] 50 mg PO DAILY PRN 02/04/23 02/04/23 History hydrALAZINE HCL [Apresoline] 50 mg PO HS 02/04/23 02/04/23 History Allergies Allergy/AdvReac Type Severity Reaction Status Date / Time cephalexin [From Keflex] Allergy Rash/Hives Verified 02/04/23 14:39 Physical Exam Vitals: Vital Signs Temp Pulse Pulse Resp BP BP Pulse Ox 02/05/23 04:00 97.7 F 128 H 19 107/63 96 02/05/23 02:00 91 19 02/05/23 00:00 97.8 F 91 19 122/80 98 02/04/23 20:00 97.7 F 91 19 127/73 97 02/04/23 18:45 97.8 F 105 H 18 135/60 97 02/04/23 17:00 96 20 113/74 97 02/04/23 16:45 137 H 24 85/74 92 L 02/04/23 16:30 142 H 22 114/93 98 02/04/23 16:15 138 H 23 122/84 98 02/04/23 16:05 135 H 18 123/88 99 02/04/23 16:00 137 H 18 108/78 97 02/04/23 15:55 134 H 20 103/65 98 02/04/23 15:50 141 H 22 102/78 97 02/04/23 15:45 141 H 24 121/79 98 02/04/23 15:40 141 H 20 115/80 97 02/04/23 15:35 141 H 17 116/79 97 02/04/23 15:30 140 H 25 H 102/81 97 02/04/23 15:15 140 H 20 112/73 97 02/04/23 15:00 140 H 22 113/79 99 02/04/23 14:55 137 H 21 113/82 96 02/04/23 14:50 134 H 22 115/95 88 L 02/04/23 14:45 126 H 24 124/89 88 L 02/04/23 14:40 126 H 19 121/83 96 02/04/23 14:35 129 H 20 117/76 99 02/04/23 14:30 124 H 98/63 99 02/04/23 14:25 114 H 101/84 96 02/04/23 14:24 133 H 20 101/84 98 02/04/23 14:15 135 H 19 106/82 98 02/04/23 14:00 134 H 23 86/60 98 02/04/23 13:45 115 H 20 87/66 98 02/04/23 13:30 125 H 20 91/68 98 02/04/23 13:15 135 H 18 89/63 97 02/04/23 13:00 144 H 21 103/69 98 02/04/23 12:45 142 H 22 113/80 98 02/04/23 12:39 141 H 22 113/80 97 02/04/23 12:34 141 H 141 H 20 113/80 98 02/04/23 12:11 97.3 F L 145 H 20 107/52 99 Intake and Output 02/04/23 02/05/23 02/05/23 22:59 06:59 14:59 Intake Total 118 72.333 Balance 118 72.333 Intake: Intake, IV Titration 72.333 Amount Diltiazem 125 mg In 72.333 Sodium Chloride 0.9% 100 ml @ 10 MG/HR 10 mls/hr IV .[id number] [facility] Rx#: [id number] Oral 118 Other: Voiding Method Toilet Toilet # Voids 1 2 # Bowel Movements 1 Weight 90.718 kg Results 02/05/23 08:50 02/05/23 08:50 Cardiac Enzymes 02/04/23 02/04/23 02/04/23 Range/Units 12:18 12:18 15:34 AST 23 (17-59) U/L Troponin I 0.018 0.055 H* (0.000-0.034) ng/mL 02/04/23 Range/Units 19:13 AST (17-59) U/L Troponin I 0.069 H* (0.000-0.034) ng/mL Coagulation 02/04/23 Range/Units 12:18 PT 11.0 (10.0-12.5) sec APTT 26.8 (22.0-30.0) sec CBC 02/04/23 Range/Units 12:18 WBC 11.0 H (3.8-10.6) k/uL RBC 4.94 (4.30-5.90) m/uL Hgb 14.9 (13.0-17.5) gm/dL Hct 45.4 (39.0-53.0) % Plt Count 270 (150-450) k/uL Comprehensive Metabolic Panel 02/04/23 Range/Units 12:18 Sodium 140 (137-145) mmol/L Potassium 4.7 (3.5-5.1) mmol/L Chloride 103 (98-107) mmol/L Carbon Dioxide 28 (22-30) mmol/L BUN 26 H (9-20) mg/dL Creatinine 1.08 (0.66-1.25) mg/dL Glucose 138 H (74-99) mg/dL Calcium 9.6 (8.4-10.2) mg/dL AST 23 (17-59) U/L ALT 21 (4-49) U/L Alkaline Phosphatase 112 (38-126) U/L Total Protein 6.7 (6.3-8.2) g/dL Albumin 3.8 (3.5-5.0) g/dL Current Medications Generic Name Dose Route Start Last Admin Trade Name Freq PRN Reason Stop Dose Admin Albuterol Sulfate 2.5 mg 02/04/23 15:14 Albuterol Nebulized 2.5 Mg/3 Ml INHALATION RT-Q6H PRN Shortness Of Breath Apixaban 5 mg 02/04/23 21:00 02/04/23 21:04 Apixaban 5 Mg Tab PO 5 mg BID JODIE Administration Protocol Atorvastatin Calcium 80 mg 02/04/23 21:00 02/04/23 21:03 Atorvastatin 80 Mg Tab PO 80 mg HS JODIE Administration Hydralazine HCl 50 mg 02/04/23 14:58 Hydralazine Hcl 50 Mg Tab PO DAILY PRN BP > 130/80 Hydralazine HCl 50 mg 02/04/23 21:00 02/04/23 23:57 Hydralazine Hcl 50 Mg Tab PO Not Given HS JODIE Hydrochlorothiazide 12.5 mg 02/05/23 09:00 Hydrochlorothiazide 12.5 Mg Cap PO DAILY JODIE Diltiazem HCl 125 mg/ Sodium 125 mls @ 10 mls/hr 02/04/23 13:00 02/05/23 03:28 Chloride IV 5 mg/hr .[id number] JODIE 5 mls/hr Administration 10 MG/HR Losartan Potassium 50 mg 02/05/23 09:00 Losartan 50 Mg Tab PO DAILY JODIE Metoprolol Tartrate 75 mg 02/04/23 21:00 02/04/23 21:04 Metoprolol Tartrate 25 Mg Tab PO 75 mg BID JODIE Administration Naloxone HCl 0.2 mg 02/04/23 13:51 Naloxone 0.4 Mg/Ml 1 Ml Vial IV Q2M PRN Opioid Reversal Tamsulosin HCl 0.4 mg 02/04/23 21:00 02/04/23 21:03 Tamsulosin 0.4 Mg Cap.Er.24h PO 0.4 mg HS JODIE Administration Ticagrelor 90 mg 02/04/23 21:00 02/04/23 21:04 Ticagrelor 90 Mg Tab PO 90 mg BID JODIE Administration Intake and Output 02/04/23 02/05/23 02/05/23 22:59 06:59 14:59 Intake Total 118 72.333 Balance 118 72.333 Intake: Intake, IV Titration 72.333 Amount Diltiazem 125 mg In 72.333 Sodium Chloride 0.9% 100 ml @ 10 MG/HR 10 mls/hr IV .[id number] [facility] Rx#: [id number] Oral 118 Other: Voiding Method Toilet Toilet # Voids 1 2 # Bowel Movements 1 Weight 90.718 kg 02/04/23 12:18 02/04/23 12:18
--- NOTE | 2023-02-05 11:16 | US ---
EXAMINATION TYPE: US liver DATE OF EXAM: 02/05/2023 COMPARISON: NONE CLINICAL INDICATION: Male, 82 years old with history of elevated liver enzymes; TECHNIQUE: Multiple sonographic images of the right upper quadrant are obtained. FINDINGS: EXAM MEASUREMENTS: Liver Length: 14.5 cm Gallbladder Wall: 0.3 cm Right Kidney: 8.8 x 4.6 x 4.1 cm [employer]FL[employer]ILDINGS LAMINATOR NOTES:Technical limitations due to large amount of overlying bowel gas Pancreas: Largely obscured by bowel gas shadowing. Liver: Slightly coarsened appearance. No focal lesion seen. Gallbladder: Questionable stone versus gallbladder wall polyp measuring 8 mm. No shadowing is seen f rom here. Follow-up recommended. No abnormal distention, wall thickening, or surrounding fluid. Evidence for sonographic Fung's sign: no CBD: Obscured by overlying bowel gas Right Kidney: no evidence of hydronephrosis IMPRESSION: 1. The bile duct is obscured and not assessed. There is mild heterogeneity of the liver that could re present some fatty infiltration or nonspecific hepatocellular disease. 2. Either an 8 mm nonshadowing stone or gallbladder wall polyp. Artifact is also a possibility. Recom mend three-month follow-up gallbladder ultrasound to reassess.
[2023-02-05] MEDS ORDERED: PROPOFOL 10 MG/ML 20 ML VIAL IV ONE (13:33)
[2023-02-05] MEDS ORDERED: PHENYLEPHRINE 10 MG/ML VIAL ONE (13:33)
[2023-02-05] MEDS ORDERED: LIDOCAINE 1% INJ 10MG/ML (20 ML MDV) ONE (13:33)
[2023-02-05] MEDS ORDERED: SODIUM CHLORIDE 0.9% 1,000 ML IV ONE (13:45)
--- NOTE | 2023-02-05 13:59 | P.PCN ---
Date of Procedure: 02/05/23 Description of Procedure: Indication: Atrial fibrillation Procedure Description: After explaining the procedure to the patient, it's risk and complications, blood pressure, heart rate and O2 saturation were monitored. The throat was sprayed with Cetacaine. Patient received sedation per anesthesia department. The probe was introduced into the esophagus without difficulty. Images were obtained. Following that, the probe was removed. There was no immediate complication. Findings: Left atrial size is normal, left atrial appendage is normal. Left ventricle size and systolic function are normal. The aortic valve revealed fibrocalcific changes of the aortic cusps with preserved opening. Mild thickening of the mitral valve leaflets was noted. Tricuspid valve appears to be normal. Mild atherosclerotic changes of the descending thoracic aorta was noted. No pericardial effusion was noted . contrast bubble study revealed no shunting across the interatrial septum. Doppler: Pulse wave and color Doppler were obtained, an revealed mild to moderate mitral regurgitation with mild tricuspid regurgitation. There was evidence of [id number] shunting through a PFO Conclusion: 1. Normal left atrial appendage 2. Normal ventricle size and systolic function 3. Mild to moderate mitral is mild tricuspid regurgitation 4. And no pericardial effusion 5. Small [id number] shunting by color Doppler study. Cardioversion: After obtaining VANDANA and sedated state synchronized biphasic cardioversion was performed with yazdanism of sinus mechanism, there is no immediate complications.
[2023-02-05] MEDS ORDERED: SODIUM CHLORIDE 0.9% 1,000 ML IV SCH (14:00)
--- NOTE | 2023-02-05 17:39 | P.HPIM ---
History of Present Illness H&P Date: 02/04/23 Chief Complaint: Palpitations/chest pain 82-year-old male presenting to the emergency department with concerns for tachycardia. Patient has had some fatigue and exertional dyspnea, unclear how long despite being asked multiple times. Patient states symptoms worsened today, especially exertional dyspnea. Patient has some at rest. Patient does not have palpitations. No chest pain. Patient does have history of similar symptoms previously associated with atrial fibrillation. Patient did have ablation done around 6 months ago. * EKG reveals atrial flutter with a heart rate of 142 * Chest xray negative for acute process * Laboratory data: Troponin 0.018. 0.055. 0.069. ProBNP 4770. TSH 2.320 * Current home cardiac medications include Eliquis 5 mg twice a day, losartan 50 mg daily, metoprolol tartrate 75 mg twice a day, Brilinta 90mg twice a day, hydrochlorothiazide 12.5 mg daily, atorvastatin 80 mg at night, and hydralazine 50 mg at night * Most recent echocardiogram obtained in September 2022 revealing ejection fraction 55-60% * Cardiac catheterization history: June 2019 revealing noncritical CAD. Normal filling pressures. No gradient. Past Medical History Past Medical History: Atrial Fibrillation, CVA/TIA, Hyperlipidemia, Hypertension, Pneumonia, Prostate Disorder, Skin Disorder, Vascular Disorder Additional Past Medical History / Comment(s): environmental allergies, bowel resection, bladder stones, blister and cellulitis issues in lower extremities , states TIA June 22 2022 no residual issues. See Dr Milligan's H& P History of Any Multi-Drug Resistant Organisms: MRSA Date of last positivie culture/infection: 02/14/20 MDRO Source:: Right Thigh Past Surgical History: Appendectomy, Back Surgery, Bowel Resection, Heart Catheterization, Orthopedic Surgery Additional Past Surgical History / Comment(s): sinus surgery x3 including deviated septum, yaneth. carotid endarterectomy, rt ankle fusion with plates and screws, pain procedures, surg. to remove bladder stones, cardioversion 2019 and a failed cardioversion 03/2022, back surg. 2018, arthroscopy left knee arch studies, back surgery 2010, VANDANA 06/2022, afib ablation 07/2022 Past Anesthesia/Blood Transfusion Reactions: Postoperative Nausea & Vomiting (PONV) Additional Past Anesthesia/Blood Transfusion Reaction / Comment(s): happened many years ago Past Psychological History: No Psychological Hx Reported Smoking Status: Former smoker Past Alcohol Use History: Occasional Past Drug Use History: None Reported - Past Family History Mother Family Medical History: Cancer Additional Family Medical History / Comment(s): breast Father Family Medical History: Cancer Additional Family Medical History / Comment(s): testicular Medications and Allergies Home Medications Medication Instructions Recorded Confirmed Type Tamsulosin HCl [Flomax] 0.4 mg PO HS 12/08/18 02/04/23 History Apixaban [Eliquis] 5 mg PO BID 04/07/22 02/04/23 History Metoprolol Tartrate [Lopressor] 75 mg PO BID 04/07/22 02/04/23 History Atorvastatin [Lipitor] 80 mg PO HS 09/14/22 02/04/23 History Levalbuterol Hfa Inhaler [Xopenex 1 - 2 puff INHALATION RT-Q6H PRN 09/14/22 02/04/23 History Hfa Inhaler] hydroCHLOROthiazide [Hydrodiuril] 12.5 mg PO DAILY #30 cap 09/16/22 02/04/23 Rx Ticagrelor [Brilinta] 90 mg PO BID #60 tab 10/01/22 02/04/23 Rx Losartan [Cozaar] 50 mg PO DAILY 02/04/23 02/04/23 History Meclizine [Antivert] 12.5 mg PO Q8HR PRN 02/04/23 02/04/23 History hydrALAZINE HCL [Apresoline] 50 mg PO DAILY PRN 02/04/23 02/04/23 History hydrALAZINE HCL [Apresoline] 50 mg PO HS 02/04/23 02/04/23 History Allergies Allergy/AdvReac Type Severity Reaction Status Date / Time cephalexin [From Keflex] Allergy Rash/Hives Verified 02/04/23 14:39 Physical Exam Vitals: Vital Signs Temp Pulse Pulse Resp BP Pulse Ox 02/04/23 14:45 126 H 24 124/89 88 L 02/04/23 14:40 126 H 19 121/83 96 02/04/23 14:35 129 H 20 117/76 99 02/04/23 14:30 124 H 98/63 99 02/04/23 14:25 114 H 101/84 96 02/04/23 14:24 133 H 20 101/84 98 02/04/23 14:15 135 H 19 106/82 98 02/04/23 14:00 134 H 23 86/60 98 02/04/23 13:45 115 H 20 87/66 98 02/04/23 13:30 125 H 20 91/68 98 02/04/23 13:15 135 H 18 89/63 97 02/04/23 13:00 144 H 21 103/69 98 02/04/23 12:45 142 H 22 113/80 98 02/04/23 12:39 141 H 22 113/80 97 02/04/23 12:34 141 H 141 H 20 113/80 98 02/04/23 12:11 97.3 F L 145 H 20 107/52 99 Intake and Output 02/03/23 02/04/23 02/04/23 22:59 06:59 14:59 Other: Weight 90.718 kg VITAL SIGNS: Reviewed. GENERAL: Well-developed in no acute distress. HEENT: Head is normocephalic. Pupils are equal, round. Sclerae anicteric. Mucous membranes of the mouth are moist. Neck supple. No JVD or thyromegaly LUNGS: Respirations even and unlabored. Lungs essentially clear to auscultation bilaterally. HEART: Tachycardic. Irregular rate and rhythm. S1 and S2 heard. ABDOMEN: Soft. Nondistended. Nontender. EXTREMITIES: Normal range of motion. No clubbing or cyanosis. Peripheral pulses intact. No lower extremity edema NEUROLOGIC: Awake and alert. Oriented x 3. Results CBC & Chem 7: 02/05/23 08:50 02/05/23 08:50 Labs: Abnormal Lab Results - Last 24 Hours (Table) 02/04/23 02/04/23 Range/Units 12:18 12:18 WBC 11.0 H (3.8-10.6) k/uL BUN 26 H (9-20) mg/dL Glucose 138 H (74-99) mg/dL Total Bilirubin 2.3 H (0.2-1.3) mg/dL Assessment and Plan Assessment: 1. Atrial fibrillation/flutter with RVR - Patient has history of ablation in July 2022 - Reports cardioversion in the past - Patient has been placed on IV Cardizem; continue with home dose of metoprolol - Monitor EKG and trend troponin - Consult cardiology for further recommendations 2. Mild CISCO; slow IV fluid hydration with normal saline at a rate of 75 mL an hour; we will monitor strict KELVIN's, daily weights, renal function and electrolytes; avoid nephrotoxins and hypotension 3. Hypertension; losartan 50 mg daily, metoprolol 75 mg twice a day, hydralazine 50 mg daily at bedtime; hydrochlorothiazide 12.5 mg daily 4. Hyperlipidemia; Lipitor 80 mg daily at bedtime 5. Coronary artery disease; patient is status post cardiac catheterization 2019 which revealed noncritical disease; continue with metoprolol, Lipitor along with alendronate 20 mg twice a day 6. History of TIA/CVA 2; Ahlquist 5 mg twice a day; Lipitor 80 mg daily DVT prophylaxis; SCDs/L Wiley CODE STATUS; full code
--- NOTE | 2023-02-05 17:41 | P.PN ---
Subjective Progress Note Date: 02/05/23 82-year-old male presenting to the emergency department with concerns for tachycardia. Patient has had some fatigue and exertional dyspnea, unclear how long despite being asked multiple times. Patient states symptoms worsened today, especially exertional dyspnea. Patient has some at rest. Patient does not have palpitations. No chest pain. Patient does have history of similar symptoms previously associated with atrial fibrillation. Patient did have ablation done around 6 months ago. * EKG reveals atrial flutter with a heart rate of 142 * Chest xray negative for acute process * Laboratory data: Troponin 0.018. 0.055. 0.069. ProBNP 4770. TSH 2.320 * Current home cardiac medications include Eliquis 5 mg twice a day, losartan 50 mg daily, metoprolol tartrate 75 mg twice a day, Brilinta 90mg twice a day, hydrochlorothiazide 12.5 mg daily, atorvastatin 80 mg at night, and hydralazine 50 mg at night * Most recent echocardiogram obtained in September 2022 revealing ejection fraction 55-60% * Cardiac catheterization history: June 2019 revealing noncritical CAD. Normal filling pressures. No gradient. -- Patient has been evaluated by cardiology; scheduled for VANDANA/cardioversion this morning --Liver enzymes are reviewed; bilirubin remains elevated; we will order right upper quadrant/hepatobiliary ultrasound Objective - Vital Signs Vital signs: Vital Signs Temp 97.8 F 02/05/23 08:42 Pulse 146 H 02/05/23 08:42 Resp 18 02/05/23 08:42 BP 125/80 02/05/23 08:42 Pulse Ox 97 02/05/23 08:42 FiO2 Intake & Output 02/04/23 02/05/23 02/05/23 18:59 06:59 18:59 Intake Total 118 72.333 Balance 118 72.333 Weight 90.718 kg Intake: Intake, IV Titration 72.333 Amount Diltiazem 125 mg In 72.333 Sodium Chloride 0.9% 100 ml @ 10 MG/HR 10 mls/hr IV .[id number] FORMERLY [facility], 1928–1983 Rx#: [id number] Oral 118 Other: Voiding Method Toilet Toilet # Voids 2 # Bowel Movements 1 - Exam GENERAL: Well-developed in no acute distress. HEENT: Head is normocephalic. Pupils are equal, round. Sclerae anicteric. Mucous membranes of the mouth are moist. Neck supple. No JVD or thyromegaly LUNGS: Respirations even and unlabored. Lungs essentially clear to auscultation bilaterally. HEART: Tachycardic. Irregular rate and rhythm. S1 and S2 heard. ABDOMEN: Soft. Nondistended. Nontender. EXTREMITIES: Normal range of motion. No clubbing or cyanosis. Peripheral pulses intact. No lower extremity edema NEUROLOGIC: Awake and alert. Oriented x 3. - Labs CBC & Chem 7: 02/05/23 08:50 02/05/23 08:50 Labs: Abnormal Lab Results - Last 24 Hours (Table) 02/04/23 02/04/23 02/04/23 Range/Units 12:18 12:18 15:34 WBC 11.0 H (3.8-10.6) k/uL BUN 26 H (9-20) mg/dL Glucose 138 H (74-99) mg/dL Total Bilirubin 2.3 H (0.2-1.3) mg/dL Troponin I 0.055 H* (0.000-0.034) ng/mL Total Protein (6.3-8.2) g/dL Albumin (3.5-5.0) g/dL 02/04/23 02/05/23 Range/Units 19:13 08:50 WBC (3.8-10.6) k/uL BUN 27 H (9-20) mg/dL Glucose 140 H (74-99) mg/dL Total Bilirubin 2.3 H (0.2-1.3) mg/dL Troponin I 0.069 H* (0.000-0.034) ng/mL Total Protein 6.2 L (6.3-8.2) g/dL Albumin 3.4 L (3.5-5.0) g/dL Assessment and Plan Assessment: 1. Atrial fibrillation/flutter with RVR - Patient has history of ablation in July 2022 - Reports cardioversion in the past - Patient has been placed on IV Cardizem; continue with home dose of metoprolol - Monitor EKG and trend troponin - Consult cardiology for further recommendations 2. Mild CISCO; slow IV fluid hydration with normal saline at a rate of 75 mL an hour; we will monitor strict KELVIN's, daily weights, renal function and electrolytes; avoid nephrotoxins and hypotension 3. Hypertension; losartan 50 mg daily, metoprolol 75 mg twice a day, h ydralazine 50 mg daily at bedtime; hydrochlorothiazide 12.5 mg daily 4. Hyperlipidemia; Lipitor 80 mg daily at bedtime 5. Coronary artery disease; patient is status post cardiac catheterization 2019 which revealed noncritical disease; continue with metoprolol, Lipitor along with alendronate 20 mg twice a day 6. History of TIA/CVA 2; Ahlquist 5 mg twice a day; Lipitor 80 mg daily DVT prophylaxis; SCDs/L Wiley CODE STATUS; full code
[2023-02-05] MEDS: TAMSULOSIN 0.4 MG CAP.ER.24H PO SCH (20:33)
[2023-02-05] MEDS: METOPROLOL TARTRATE 50 MG TAB PO SCH (20:34)
[2023-02-05] MEDS: ATORVASTATIN 80 MG TAB PO SCH (20:34)
[2023-02-05] MEDS: hydrALAZINE HCL 50 MG TAB PO SCH (20:36)
[2023-02-05] MEDS ORDERED: METOPROLOL TARTRATE 50 MG TAB PO SCH (21:00)
[2023-02-06 04:59] VITALS: TEMP 97.9
[2023-02-06 08:42] LABS: Basophils # (A) 0.1 k/uL (0-0.2); Basophils % (A) 1 %; Eosinophils # (A) 0.2 k/uL (0-0.7); Eosinophils % (A) 3 %; HCT 36.9 % (39.0-53.0); Lymphocytes # (A) 1.5 k/uL (1.0-4.8); Lymphocytes % (A) 21 %; MCH 30.1 pg (25.0-35.0); MCHC 32.6 g/dL (31.0-37.0); MCV 92.4 fL (80.0-100.0); Mean Platelet Volume 7.5; Monocytes # (A) 0.4 k/uL (0-1.0); Monocytes % (A) 6 %; Neutrophils # (A) 4.6 k/uL (1.3-7.7); Neutrophils % (A) 67 %; Platelet Count 223 k/uL (150-450); RDW 13.4 % (11.5-15.5); WBC 6.9 k/uL (3.8-10.6)
[2023-02-06] MEDS: APIXABAN 5 MG TAB PO SCH (08:52)
[2023-02-06] MEDS: LOSARTAN 50 MG TAB PO SCH (08:52)
[2023-02-06] MEDS: TICAGRELOR 90 MG TAB PO SCH (08:52)
[2023-02-06] MEDS: METOPROLOL TARTRATE 50 MG TAB PO SCH (08:52)
[2023-02-06] MEDS: hydroCHLOROthiazide 12.5 MG CAP PO SCH (08:52)
[2023-02-06 08:58] LABS: ALT 19 U/L (4-49); AST 20 U/L (17-59); African American GFR (CKD) 85 (>60 ml/min/1.73 sqM); Alkaline Phosphatase 96 U/L (38-126); Anion Gap 9 mmol/L; Bilirubin,Unconjugated 1.5 mg/dL (0.0-1.1); Blood Urea Nitrogen 29 mg/dL (9-20); Calcium 8.5 mg/dL (8.4-10.2); Carbon Dioxide 24 mmol/L (22-30); Chloride 107 mmol/L (98-107); Glucose 156 mg/dL (74-99); Non-African American GFR(CKD) 73 (>60 ml/min/1.73 sqM); Potassium 3.7 mmol/L (3.5-5.1); Sodium 140 mmol/L (137-145); Total Bilirubin 1.5 mg/dL (0.2-1.3); Total Protein 5.6 g/dL (6.3-8.2)
[2023-02-06 12:08] VITALS: BP 122/70; PULSE 70; RESP 18
--- NOTE | 2023-02-06 13:43 | P.PN ---
Subjective Progress Note Date: 02/06/23 PROGRESS NOTE The patient is an 82-year-old male with known history of atrial fibrillation, atrial flutter status post ablation and cardioversion who presented with atrial flutter with rapid ventricle response, he underwent VANDANA guided cardioversion with anglican of sinus mechanism. He feels better today. His breathing is better. He denies any chest discomfort, dizziness or palpitations. He is amb ulating without difficulty. Medications: Hydralazine, Brilinta, Cozaar 50 mg daily, hydro-Diuril 12.5 mg daily, Lipitor 80 mg daily, metoprolol 75 mg twice a day,Eliquis 5 mg twice a day PHYSICAL EXAMINATION: Blood pressure 122/70 heart rate 70 LUNGS: Clear to auscultation HEART: Regular rate and rhythm, S1, S2. No S3. No systolic murmur ABDOMEN: Soft, nontender, no organomegaly EXTREMETIES: No edema LAB: Hemoglobin 12, BUN 29, creatinine 0.6 IMPRESSION: 1. Atrial flutter status post cardioversion and anglican of sinus mechanism 2. History of hypertension 3. History of hyperlipidemia PLAN: 1. Continue present therapy 2. Discharged home today 3. Follow-up with Dr. Hickey in one week Objective - Vital Signs Vital signs: Vital Signs Temp 97.9 F 02/06/23 04:00 Pulse 70 02/06/23 11:46 Resp 18 02/06/23 11:46 BP 122/70 02/06/23 11:46 Pulse Ox 98 02/06/23 11:46 FiO2 Intake & Output 02/05/23 02/06/23 02/06/23 18:59 06:59 18:59 Intake Total 240 295 Output Total 570 Balance 240 -570 295 Intake: IV 0 Oral 240 295 Output: Urine 570 Other: Voiding Method Toilet Toilet Toilet # Voids 2 1 3 - Labs CBC & Chem 7: 02/06/23 08:17 02/06/23 08:17 Labs: Abnormal Lab Results - Last 24 Hours (Table) 02/06/23 02/06/23 Range/Units 08:17 08:17 RBC 4.00 L (4.30-5.90) m/uL Hgb 12.0 L (13.0-17.5) gm/dL Hct 36.9 L (39.0-53.0) % BUN 29 H (9-20) mg/dL Glucose 156 H (74-99) mg/dL Total Bilirubin 1.5 H (0.2-1.3) mg/dL Unconjugated Bilirubin 1.5 H (0.0-1.1) mg/dL Total Protein 5.6 L (6.3-8.2) g/dL Albumin 3.0 L (3.5-5.0) g/dL
== END 2023-02-06 13:30 | disposition home or self-care (01) | DRG 309 ==
LOC: EC 12:08 → 3SCARD 13:51
PROVIDERS: ADMIT Internal Medicine; ATTEND Internal Medicine
PROC: 5A2204Z Restoration of Cardiac Rhythm, Single (ICD-10-PCS; 2023-02-05)
PROC: B246ZZ4 Ultrasonography of Right and Left Heart, Transesophageal (ICD-10-PCS; principal; 2023-02-05 13:00)
DX: I48.0 Paroxysmal atrial fibrillation (principal); N17.9 Acute kidney failure, unspecified; I20.9 Angina pectoris, unspecified; I25.10 Atherosclerotic heart disease of native coronary artery without angina pectoris; I10 Essential (primary) hypertension; Z79.01 Long term (current) use of anticoagulants; Z79.02 Long term (current) use of antithrombotics/antiplatelets; Z79.83 Long term (current) use of bisphosphonates; Z79.899 Other long term (current) drug therapy; Z86.73 Personal history of transient ischemic attack (TIA), and cerebral infarction without residual deficits; Z98.1 Arthrodesis status; Z87.19 Personal history of other diseases of the digestive system; Z88.1 Allergy status to other antibiotic agents; R00.0 Tachycardia, unspecified; I48.3 Typical atrial flutter; Z87.01 Personal history of pneumonia (recurrent); J30.89 Other allergic rhinitis
CPT/HCPCS: 36415; 71046; 76705; 80048; 80053; 80076; 83735; 83880; 84439; 84443; 84481; 84484; 85025; 85610; 85730; 92960; 93005; 93312; 93320; 93325; 94760; 96365; 96366; 96375; 99291

== ENCOUNTER → 2023-04-15 | Outpatient (CLI) | payer MEDICARE ==
--- NOTE | 2023-04-15 15:39 | FL ---
EXAMINATION TYPE: FL sniff test without CXR DATE OF EXAM: 04/15/2023 Comparison: No recent radiographs available for correlation. Radiograph from 02/04/2023 Clinical History: 82-year-old male history of cardiac ablation 2 months ago with shortness of breath. J98.6 DISORDERS OF DIAPHRAGM Total fluoroscopy time: 1 minute 4 seconds. Total images: No images were saved. 300.42 mGycm2 DAP dose Findings: There seems to be slight asymmetric elevation left hemidiaphragm. Unable to exclude underlying pleura l effusions. Recommend further chest radiographic evaluation. On both quiet breathing and deep breathing, there is delayed initiation of movement of the left hemid iaphragm but with subsequently symmetric movement and similar excursion. However, with sniffing maneuver, there is a absent movement of the left hemidiaphragm. Impression: 1. Slight asymmetric elevation left hemidiaphragm. Unable to exclude underlying pleural effusions. Re commend dedicated chest radiograph to further evaluate. 2. Absent movement of the left hemidiaphragm with sniffing maneuver. Findings suggest some underlying hemidiaphragmatic weakness/paresis. No maurice paradoxical movement at this time.
== END | disposition home or self-care (01) ==
LOC: RADUSWWP 09:54
PROVIDERS: ATTEND Internal Medicine Clinical Cardiac Electrophysiology
DX: J98.6 Disorders of diaphragm (principal); R06.02 Shortness of breath
CPT/HCPCS: 76000

== ENCOUNTER → 2023-04-25 | Outpatient (CLI) | payer MEDICARE ==
--- NOTE | 2023-04-25 10:33 | CT ---
EXAMINATION TYPE: CT chest wo con DATE OF EXAM: 04/25/2023 COMPARISON: Radiograph 02/04/2023 HISTORY: 82-year-old male increased SOB TECHNIQUE: Contiguous axial scanning of the chest without IV contrast. Coronal/sagittal reconstructio ns performed. CT DLP: 573.3mGycm. Automatic exposure control utilized for a dose reduction. FINDINGS: Loop recorder device left anterior chest. Heart upper limits of normal in size without pericardial effusion. LAD coronary artery calcifications are present. Aorta normal caliber with mild atherosclerotic calcifications throughout. Conventional arch vessel br anching anatomy. Possible underlying 1.3 cm hypodense nodule right lobe of the thyroid gland can be further evaluated with thyroid ultrasound. No thoracic lymphadenopathy by CT size criteria. There is a small left and trace right pleural effusion. Some accompanying pleural thickening on the r ight with subpleural masslike opacity measuring 4.5 x 1.7 cm, possible rounded atelectasis. There is some scattered moderate bronchial wall thickening in the lower lobes. Some patchy opacity, p robably atelectasis at the left base. Visualized upper abdomen shows no gross abnormality. Bones: [facility] throughout the thoracic spine. Severe degenerative change both glenohumeral joints. IMPRESSION: 1. Small left and trace right pleural effusions with adjacent atelectasis. On the right, there is als o a subpleural masslike opacity adjacent to the effusion measuring 4.5 x 1.7 cm. Suspect rounded atel ectasis rather than neoplasm. 2-3 month follow-up CT to ensure stability. 2. Scattered moderate bronchial wall thickening in the lower lobes. Consider bronchitis or asthma. 3. Thyroid ultrasound to assess for potential underlying 1.3 cm right thyroid lobe nodule. 4. DISH throughout the thoracic spine. Severe bilateral glenohumeral joint OA.
== END | disposition home or self-care (01) ==
LOC: RADCTMAIN 09:34
PROVIDERS: ATTEND Internal Medicine Clinical Cardiac Electrophysiology
DX: J90 Pleural effusion, not elsewhere classified (principal); J98.6 Disorders of diaphragm; J98.09 Other diseases of bronchus, not elsewhere classified; E07.89 Other specified disorders of thyroid; M19.011 Primary osteoarthritis, right shoulder; M19.012 Primary osteoarthritis, left shoulder; R91.8 Other nonspecific abnormal finding of lung field
CPT/HCPCS: 71250

== ENCOUNTER → 2023-06-11 | Outpatient (CLI) | payer MEDICARE ==
[2023-06-11 13:37] LABS: HCT 40.2 % (39.6-50.0); HGB 12.4 g/dL (13.0-17.0); MCH 27.3 pg (27.0-32.0); MCHC 30.8 g/dL (32.0-37.0); MCV 88.5 FL (80.0-97.0); Mean Platelet Volume 9.6 FL (9.5-12.2); NRBC Per 100 WBC 0 X 10*3/uL (0.00-0.01); Platelet Count 223 X 10*3/uL (140-440); RBC 4.54 X 10*6/uL (4.40-5.60); RDW 15.8 % (11.5-14.5)
[2023-06-11 13:53] LABS: Blood Urea Nitrogen 20.6 mg/dL (9.0-27.0); Carbon Dioxide 23.3 mmol/L (21.6-31.8); Chloride 110 mmol/L (96-109); Potassium 4.5 mmol/L (3.5-5.5); Sodium 145 mmol/L (135-145)
== END | disposition home or self-care (01) ==
LOC: LABWHC1 10:21
PROVIDERS: ATTEND Internal Medicine Interventional Cardiology
DX: Z01.812 Encounter for preprocedural laboratory examination (principal); R94.39 Abnormal result of other cardiovascular function study
CPT/HCPCS: 36415; 80051; 82565; 84520; 85027

== ENCOUNTER 2023-06-20 06:13 | Day surgery (SDC) | payer MEDICARE ==
[~2023-06-20 06:13] MED LIST changes: +ALPRAZolam 0.25 MG TAB PO PRN; +ASPIRIN 325 MG TAB PO STA; +ATORVASTATIN 80 MG TAB PO STA; -CLINDAMYCIN 900 MG in DEXTROSE 5% IN WATER 50 ML IVPB PRN; +HEPARIN SODIUM,PORCINE (1 ML) 2,500 UNIT in SODIUM CHLORIDE 0.9% 250 ML IRRIGATION PRN; +HEPARIN SODIUM,PORCINE 10,000 UNIT in SODIUM CHLORIDE 0.9% 1,000 ML IRRIGATION PRN; -HYDROmorphone 0.5 MG/0.5 ML SYRINGE IVP PRN; -LACTATED RINGERS 1,000 ML IV SCH; -MIDAZOLAM 2 MG/2 ML VIAL IV PRN; +NITROGLYCERIN SL TABS 0.4 MG TAB SUBLINGUAL PRN; -ONDANSETRON 4 MG/2 ML VIAL IVP ONE; -SODIUM CHLORIDE 0.9% 1,000 ML IV SCH
[2023-06-20] MEDS: ALPRAZolam 0.5 MG TAB PO PRN (06:58)
[2023-06-20] MEDS: SODIUM CHLORIDE 0.9% 1,000 ML in EMPTY BAG 1 BAG IV SCH (07:00)
[2023-06-20] MEDS ORDERED: fentaNYL (PF) 50 MCG/ML 2 ML AMP ONE (07:09)
[2023-06-20] MEDS ORDERED: HEPARIN SODIUM 1,000 UN/ML (10ML VL) ONE (07:09)
[2023-06-20] MEDS ORDERED: VERAPAMIL 2.5 MG/ML 2 ML AMP ONE (07:09)
[2023-06-20] MEDS: LIDOCAINE 1% INJ 10MG/ML (5 ML VIAL-PF) SQ ONE (07:35)
[2023-06-20] MEDS: fentaNYL (PF) 50 MCG/ML 2 ML AMP IVP ONE (07:35)
[2023-06-20 07:36] VITALS: RESP 18; TEMP 97.9
[2023-06-20] MEDS: VERAPAMIL SYRINGE (5 MG/10 ML) INTRAARTER ONE (07:38)
[2023-06-20] MEDS ORDERED: NITROGLYCERIN SL TABS 0.4 MG TAB SUBLINGUAL ONE (07:41)
[2023-06-20] MEDS: NITROGLYCERIN SL TABS 0.4 MG TAB SUBLINGUAL ONE (07:42)
[2023-06-20] MEDS: HEPARIN SODIUM 1,000 UN/ML (10ML VL) IVP ONE ×2 (07:42→07:58)
[2023-06-20] MEDS: NITROGLYCERIN 1000MCG/10ML SYRINGE INTRACORON ONE (07:57)
[2023-06-20] MEDS: IOPAMIDOL-370 100ML BTL INJ ONE ×2 (08:02→08:21)
[2023-06-20] MEDS ORDERED: MAG HYDROX/AL HYDROX/SIMETH 30 ML CUP PO PRN (08:29)
[2023-06-20] MEDS ORDERED: NITROGLYCERIN SL TABS 0.4 MG TAB SUBLINGUAL PRN (08:29)
[2023-06-20] MEDS ORDERED: ATROPINE SULFATE 0.1 MG/ML 10ML SYRINGE IV PRN (08:29)
[2023-06-20] MEDS ORDERED: RX INFO: IV CONTRAST WAS GIVEN 1 EACH MISC MISCELLANE PRN (08:29)
[2023-06-20] MEDS ORDERED: ZOLPIDEM 5 MG TAB PO PRN (08:29)
[2023-06-20] MEDS ORDERED: SODIUM CHLORIDE 0.9% 1,000 ML in EMPTY BAG 1 BAG IV SCH (08:30)
--- NOTE | 2023-06-20 08:46 | P.CARDCATH ---
Date of Procedure: 06/20/23 Description of Procedure: Cardiac Catheterization: The patient is an 82-year-old male with a history of hypertension, hyperlipidemia, atrial fibrillation and history of CAD who has been followed by Dr. Milligan and has been complaining of dyspnea on exertion. He had an abnormal MPI. Recommendations were made regarding cardiac catheterization, the risks and the complications were discussed with the patient who is in full understanding and agreement. 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 Using Xylocaine Anesthesia and modified Seldinger technique, a 6-[place] sheath was in troduced in the right radial artery . Subsequently, selective coronary angiography was performed using a 5-[place] 3.5 bend Stefanie catheter. Multiple views of the coronary artery including hemiaxial views were obtained. The right Stefanie catheter was used to cross the aortic valve and LVEDP was calculated. PCI: After removing the catheters a 6 [place] CLS 3.5 guiding catheter was introduced and after cannulating the left main an Omni Doppler flow wire was advanced into the LAD and IFR was measured at 0.79. Subsequently a [employer] [place] eye IVUS catheter was introduced and imaging were obtained. It revealed a noncalcified lesion with a distal diameter of 3.5 cm. After removing the catheter a 3.5 x 15 mm Xience omer point stent was advanced and deployed at 16 nury after removing the balloon repeat IVUS imaging was performed and subsequently a 3.75 x 12 mm NC trek balloon was advanced and 1 inflation at 10 nury in the proximal segment of the stent was performed. Subsequently repeat IFR was performed and was calculated at 0.98. Following that the wire was removed and images were obtained and revealed stable successful stenting. Following that, catheter and sheath were removed. Hemostasis was obtained with deployment of vascular band . There was no immediate complication. Patient was returned to room in stable condition. Of note, the patient received a total of 7000 units of intravenous heparin as well as intra-arterial verapamil. His ACT was monitored and he was continued on Brilinta. He had no chest discomfort but he had EKG changes that resolved after the inflation. Findings: Left main: This is a large size vessel, bifurcating into LAD and left circumflex, left main has no obstructive disease LAD: This is a large size vessel, reaching to the apex with a wraparound apex segment giving rise to a moderately sized diagonal branch proximally the second diagonal branch is small in caliber. The LAD after the takeoff of the first diagonal branch has a 70 to 80% stenosis, the rest of the vessel has no high- grade stenosis Left circumflex: This is a codominant vessel giving rise to 2 obtuse marginal branch, bifurcating distally to PDA and PLV. The proximal left circumflex has a 20 to 30% plaque with no high-grade stenosis RCA: This is a codominant vessel moderate in caliber the proximal and mid RCA has mild intimal disease of 30 to 40% with no high-grade stenosis Left Ventriculogram: Not performed Hemodynamics: There was no gradient across aortic valve, LVEDP was 18-20 mmHg Conclusion: 1. Moderate disease to severe disease in the mid LAD with IFR of 0.79 2. Mild disease in the left circumflex and the RCA 3. Codominant system 4. Successful stenting of the mid LAD with reduction of stenosis from 80% to 0% with IVUS imaging with ANTONIA-3 flow Recommendations: The patient will continue on aspirin and Brilinta for 1 week then he will stop his aspirin and continue on Brilinta and Eliquis for 6 months without any interruption aggressive coronary risks modification with maintaining LDL below 70 mg/dL will be attempted. The findings and the recommendations were discussed with the patient and the family and they were in full understanding and agreem ent. Duration of sedation is 50 minutes.
[2023-06-20] MEDS ORDERED: METOPROLOL TARTRATE 50 MG TAB PO SCH (09:00)
[2023-06-20] MEDS ORDERED: LOSARTAN 50 MG TAB PO SCH (09:00)
[2023-06-20] MEDS ORDERED: SPIRONOLACTONE 25 MG TAB PO SCH (09:00)
[2023-06-20] MEDS ORDERED: TICAGRELOR 90 MG TAB PO SCH (09:00)
[2023-06-20] MEDS: amLODIPine 5 MG TAB PO STA (09:13)
[2023-06-20] MEDS: SODIUM CHLORIDE 0.9% 1,000 ML IV ONE (09:30)
[2023-06-20 11:22] VITALS: BP 208/84
[2023-06-20 12:10] VITALS: PULSE 65
[2023-06-20] MEDS ORDERED: ATORVASTATIN 80 MG TAB PO SCH (21:00)
[2023-06-20] MEDS ORDERED: TAMSULOSIN 0.4 MG CAP.ER.24H PO SCH (21:00)
[2023-06-21] MEDS ORDERED: ASPIRIN 81 MG PO SCH (09:00)
== END 2023-06-20 12:43 | disposition home or self-care (01) ==
LOC: CATHCVL 06:13
PROVIDERS: ATTEND Internal Medicine Interventional Cardiology
DX: I25.10 Atherosclerotic heart disease of native coronary artery without angina pectoris (principal); I10 Essential (primary) hypertension; E78.5 Hyperlipidemia, unspecified; I48.19 Other persistent atrial fibrillation; F17.210 Nicotine dependence, cigarettes, uncomplicated; Z79.01 Long term (current) use of anticoagulants; Z79.899 Other long term (current) drug therapy
CPT/HCPCS: 92978; 93458; 93799; C9600; C1887; C1769 ×3; C1894; C1753; C1874; C1725; J2001; J3010; J1644; Q9967; J2305

== ENCOUNTER → 2023-06-28 | Outpatient (CLI) | payer MEDICARE ==
[2023-06-28 15:27] LABS: Chol/HDL Ratio 2.46 Ratio; VLDL Calculation 13.16 mg/dL (5.00-40.00)
== END | disposition home or self-care (01) ==
LOC: LABWHC1 09:20
PROVIDERS: ATTEND Internal Medicine Interventional Cardiology
DX: E78.5 Hyperlipidemia, unspecified (principal)
CPT/HCPCS: 36415; 80061

== ENCOUNTER 2023-12-25 10:29 | Emergency (ER) | payer MEDICARE ==
[2023-12-25 10:48] VITALS: TEMP 98
--- NOTE | 2023-12-25 11:33 | ED ---
General Adult HPI - General Chief complaint: Recheck/Abnormal Lab/Rx Stated complaint: R Leg Pain Time Seen by Provider: 12/25/23 10:49 Source: patient, RN notes reviewed Mode of arrival: EMS Limitations: no limitations - History of Present Illness Initial comments: This is an 82-year-old male with history of vascular disease, A-fib and hypertension presenting with right calf pain (10 out of 10) and erythema since 8 AM this morning. Patient states pain is worse with weightbearing, ambulation and palpation. Patient denies history of DVTs but endorses history of carotid stenosis and multiple right lower extremity surgeries. Patient Dors is kirk spear seeing Dr. Sultana. Patient denies recent travel or trauma to the affected leg. Patient endorses daily use of apixaban and Plavix. Patient denies fever, chills, chest pain, dyspnea, abdominal pain, N/V/D, dizziness. MD Complaint: Right lower extremity erythema and warmth Onset/Timin -: days(s) Time: 08:00 Location: right, lower extremity Severity scale (1-10): 10 Consistency: constant Improves with: immobilization Worsens with: movement Treatments Prior to Arrival: none - Related Data Home Medications Medication Instructions Recorded Confirmed Tamsulosin HCl [Flomax] 0.4 mg PO HS 12/08/18 06/20/23 Apixaban [Eliquis] 5 mg PO BID 04/07/22 06/20/23 Metoprolol Tartrate [Lopressor] 100 mg PO BID 04/07/22 06/20/23 Atorvastatin [Lipitor] 80 mg PO HS 09/14/22 06/20/23 Levalbuterol Hfa Inhaler [Xopenex 1 - 2 puff INHALATION RT-Q6H PRN 09/14/22 06/20/23 Hfa Inhaler] Losartan [Cozaar] 25 mg PO BID 02/04/23 06/20/23 Meclizine [Antivert] 12.5 mg PO Q8HR PRN 02/04/23 06/20/23 Codeine-Guaifen 5 ml PO DIRECTED PRN 06/15/23 06/20/23 Spironolactone 25 mg PO DAILY 06/15/23 06/20/23 Unk Cholesytramine Powder 1 scoop PO DIRECTED 06/15/23 06/20/23 Unk Fluticasone Nasal [place] 1 spray NASAL DIRECTED PRN 06/15/23 06/20/23 Aspirin 81 mg PO DAILY 06/20/23 06/20/23 Previous Rx's Medication Instructions Recorded Ticagrelor [Brilinta] 90 mg PO BID #60 tab 10/01/22 Ciprofloxacin HCl [Cipro] 500 mg PO Q12HR #20 tablet 12/25/23 Allergies Allergy/AdvReac Type Severity Reaction Status Date / Time cephalexin [From Keflex] Allergy Rash/Hives Verified 12/25/23 10:46 Review of Systems ROS Statement: Those systems with pertinent positive or pertinent negative responses have been documented in the HPI. ROS Other: All systems not noted in ROS Statement are negative. Past Medical History Past Medical History: Atrial Fibrillation, CVA/TIA, Hyperlipidemia, Hypertension, Pneumonia, Prostate Disorder, Skin Disorder, Vascular Disorder Additional Past Medical History / Comment(s): environmental allergies, bowel resection, bladder stones, blister and cellulitis issues in lower extremities , states TIA June 22 2022 no residual issues. See Dr Milligan's H& P History of Any Multi-Drug Resistant Organisms: MRSA Date of last positivie culture/infection: 02/14/20 MDRO Source:: Right Thigh Past Surgical History: Appendectomy, Back Surgery, Bowel Resection, Heart Catheterization, Orthopedic Surgery Additional Past Surgical History / Comment(s): sinus surgery x3 including deviated septum, yaneth. carotid endarterectomy, rt ankle fusion with plates and screws, pain procedures, surg. to remove bladder stones, cardioversion 2019 and a failed cardioversion 03/2022, back surg. 2018, arthroscopy left knee arch studies, back surgery 2010, VANDANA 06/2022, afib ablation 07/2022 Past Anesthesia/Blood Transfusion Reactions: Postoperative Nausea & Vomiting (PONV) Additional Past Anesthesia/Blood Transfusion Reaction / Comment(s): happened many years ago Past Psychological History: No Psychological Hx Reported Smoking Status: Former smoker Past Alcohol Use History: None Reported Past Drug Use History: Marijuana - Past Family History Mother Family Medical History: Cancer Additional Family Medical History / Comment(s): breast Father Family Medical History: Cancer Additional Family Medical History / Comment(s): testicular General Exam Limitations: no limitations General appearance: alert, in no apparent distress Head exam: Present: atraumatic, normocephalic, normal inspection Eye exam: Present: normal appearance, PERRL, EOMI. Absent: scleral icterus, conjunctival injection, periorbital swelling ENT exam: Present: normal exam, mucous membranes moist Neck exam: Present: normal inspection. Absent: tenderness, meningismus, lymphadenopathy Respiratory exam: Present: normal lung sounds bilaterally. Absent: respiratory distress, wheezes, rales, rhonchi, stridor Cardiovascular Exam: Present: regular rate, normal rhythm, normal heart sounds. Absent: systolic murmur, diastolic murmur, rubs, gallop, clicks GI/Abdominal exam: Present: soft, normal bowel sounds. Absent: distended, tenderness, guarding, rebound, rigid Extremities exam: Present: normal inspection, full ROM, tenderness (Positive r ight ankle and distal calf erythema, warmth, tenderness. Negative edema. Dorsalis pedis and posterior tibialis pulse +1 bilaterally), normal capillary refill, calf tenderness (Positive Homans' sign for RLE). Absent: pedal edema, joint swelling Back exam: Present: normal inspection Neurological exam: Present: alert, oriented X3, CN II-XII intact Psychiatric exam: Present: normal affect, normal mood Skin exam: Present: warm, dry, intact, normal color. Absent: rash Course Vital Signs 12/25/23 12/25/23 12/25/23 10:42 13:29 14:21 Temperature 98.0 F Pulse Rate 79 68 68 Respiratory 18 18 16 Rate Blood Pressure 153/62 136/61 113/56 O2 Sat by Pulse 96 100 97 Oximetry Medical Decision Making - Medical Decision Making Was pt. sent in by a medical professional or institution (, [facility], RESERVOIR CARETAKER, urgent care, hospital, or snf...) When possible be specific @ -No Did you speak to anyone other than the patient for history (EMS, parent, family, police, friend...)? What history was obtained from this source @ -No Did you review nursing and triage notes (agree or disagree)? Why? @ -I reviewed and agree with nursing and triage notes Were old charts reviewed (outside hosp., previous admission, EMS record, old EKG, old radiological studies, urgent care reports/EKG's, snf records)? Report findings @ -No old charts were reviewed Differential Diagnosis (chest pain, altered mental status, abdominal pain women, abdominal pain men, vaginal bleeding, weakness, fever, dyspnea, syncope, headache, dizziness, GI bleed, back pain, seizure, CVA, palpatations, mental health, musculoskeletal)? @ -DVT, cellulitis, compression syndrome, stasis dermatitis, PVD, PAD EKG interpreted by me (3pts min.). @ -Not done X-rays interpreted by me (1pt min.). @ -None done CT interpreted by me (1pt min.). @ -None done U/S interpreted by me (1pt. min.). @ -Right lower extremity ultrasound revealed no DVT What testing was considered but not performed or refused? (CT, X-rays, U/S, labs)? Why? @ -None What meds were considered but not given or refused? Why? @ -None Did you discuss the management of the patient with other professionals (professionals i.e. , PA, RESERVOIR CARETAKER, lab, RT, psych nurse, social work lecturer, product development carpenter, teacher, credit officer, porter sample case)? Give summary @ -No Was smoking cessation discussed for >3mins.? @ -No Was critical care preformed (if so, how long)? @ -No Were there social determinants of health that impacted care today? How? (Homelessness, low income, unemployed, alcoholism, drug addiction, transportation, low edu. Level, literacy, decrease access to med. care, intermediate, rehab)? @ -No Was there de-escalation of care discussed even if they declined (Discuss DNR or withdrawal of care, Hospice)? DNR status @ -No What co-morbidities impacted this encounter? (DM, HTN, Smoking, COPD, CAD, Cancer, CVA, ARF, Chemo, Hep., AIDS, mental health diagnosis, sleep apnea, morbid obesity)? @ -Vascular disease, A-fib, hypertension Was patient admitted / discharged? Hospital course, mention meds given and route, prescriptions, significant lab abnormalities, going to OR and other pertinent info. @ -Discharge. Right lower extremity ultrasound was unremarkable. Lab work revealed no elevated D-dimer but white blood cell count was elevated at 14.8. Patient given IV Toradol and Dilaudid for pain. Patient's states patient has an allergy to Keflex but has been taking ciprofloxacin p.o. for skin infections. Ciprofloxacin p.o. sent to pharmacy. Advised follow-up with primary care in next 24 to 48 hours. Undiagnosed new problem with uncertain prognosis? @ -No Drug Therapy requiring intensive monitoring for toxicity (Heparin, Nitro, Insulin, Cardizem)? @ -No Were any procedures done? @ -No Diagnosis/symptom? @ -Acute cellulitis Acute, or Chronic, or Acute on Chronic? @ -Acute Uncomplicated (without systemic symptoms) or Complicated (systemic symptoms)? @ -Uncomplicated Side effects of treatment? @ -No Exacerbation, Progression, or Severe Exacerbation? @ -Exacerbation Poses a threat to life or bodily function? How? (Chest pain, [place], [place], pneumonia, PE, COPD, DKA, ARF, appy, cholecystitis, CVA, Diverticulitis, Homicidal, Suicidal, threat to staff... and all critical care pts) @ -No - Lab Data Result diagrams: 12/25/23 13:15 12/25/23 11:52 Lab Results 12/25/23 12/25/23 12/25/23 Range/Units 11:52 13:15 13:15 WBC 14.8 H (3.8-10.6) k/uL RBC 4.58 (4.30-5.90) m/uL Hgb 13.3 (13.0-17.5) gm/dL Hct 41.1 (39.0-53.0) % MCV 89.7 (80.0-100.0) fL MCH 29.1 (25.0-35.0) pg MCHC 32.4 (31.0-37.0) g/dL RDW 13.4 (11.5-15.5) % Plt Count 161 (150-450) k/uL MPV 6.6 Neutrophils % 85 % Lymphocytes % 7 % Monocytes % 6 % Eosinophils % 1 % Basophils % 0 % Neutrophils # 12.6 H (1.3-7.7) k/uL Lymphocytes # 1.0 (1.0-4.8) k/uL Monocytes # 0.8 (0-1.0) k/uL Eosinophils # 0.1 (0-0.7) k/uL Basophils # 0.0 (0-0.2) k/uL PT 10.8 (10.0-12.5) sec INR 1.0 (<1.2) APTT 20.4 L (22.0-30.0) sec D-Dimer 0.17 (<0.60) mg/L FEU Sodium 136 L (137-145) mmol/L Potassium 4.6 (3.5-5.1) mmol/L Chloride 106 (98-107) mmol/L Carbon Dioxide 26 (22-30) mmol/L Anion Gap 4 mmol/L BUN 27 H (9-20) mg/dL Creatinine 0.96 (0.66-1.25) mg/dL Est GFR (CKD-EPI)AfAm 85 (>60 ml/min/1.73 sqM) Est GFR (CKD-EPI)NonAf 73 (>60 ml/min/1.73 sqM) Glucose 119 H (74-99) mg/dL Calcium 8.7 (8.4-10.2) mg/dL Total Bilirubin 2.5 H (0.2-1.3) mg/dL AST 17 (17-59) U/L ALT 17 (4-49) U/L Alkaline Phosphatase 71 (38-126) U/L Total Protein 6.2 L (6.3-8.2) g/dL Albumin 3.5 (3.5-5.0) g/dL Disposition Clinical Impression: Cellulitis of leg, right Disposition: HOME SELF-CARE Condition: Good Instructions (If sedation given, give patient instructions): Cellulitis (ED) Prescriptions: Ciprofloxacin HCl [Cipro] 500 mg PO Q12HR #20 tablet Is patient prescribed a controlled substance at d/c from ED?: No Referrals: Nikko Sultana MD [Primary Care Provider] - 1-2 days Time of Disposition: 14:09
--- NOTE | 2023-12-25 11:57 | US ---
EXAMINATION TYPE: US venous doppler duplex LE RT DATE OF EXAM: 12/25/2023 11:22 AM COMPARISON: None CLINICAL INDICATION: Male, 82 years old with history of pain; Right calf pain, swelling and redness, Pain, Swelling TECHNIQUE: The lower extremity deep venous system is examined utilizing real time linear array sonog dayan with graded compression, color doppler sonography, and spectral doppler. SIDE PERFORMED: Right FINDINGS: VESSELS IMAGED: Common Femoral Vein Deep Femoral Vein Greater Saphenous Vein * Femoral Vein Popliteal Vein Small Saphenous Vein * Proximal Calf Veins (* superficial vessels) Right Leg: Negative for DVT IMPRESSION: No evidence for DVT within the right lower extremity imaged from the groin to the upper calf. [facility], , 12/25/2023 11:54 AM
[2023-12-25 12:58] LABS: ALT 17 U/L (4-49); AST 17 U/L (17-59); African American GFR (CKD) 85 (>60 ml/min/1.73 sqM); Albumin 3.5 g/dL (3.5-5.0); Alkaline Phosphatase 71 U/L (38-126); Anion Gap 4 mmol/L; Blood Urea Nitrogen 27 mg/dL (9-20); Calcium 8.7 mg/dL (8.4-10.2); Carbon Dioxide 26 mmol/L (22-30); Chloride 106 mmol/L (98-107); Glucose 119 mg/dL (74-99); Non-African American GFR(CKD) 73 (>60 ml/min/1.73 sqM); Potassium 4.6 mmol/L (3.5-5.1); Sodium 136 mmol/L (137-145); Total Bilirubin 2.5 mg/dL (0.2-1.3); Total Protein 6.2 g/dL (6.3-8.2)
[2023-12-25] MEDS: HYDROmorphone 0.5 MG/0.5 ML SYRINGE IVP STA (13:16)
[2023-12-25] MEDS: KETOROLAC 15 MG/ML 1 ML VIAL IVP STA (13:23)
[2023-12-25 13:26] LABS: Basophils % (A) 0 %; Eosinophils # (A) 0.1 k/uL (0-0.7); Eosinophils % (A) 1 %; HCT 41.1 % (39.0-53.0); HGB 13.3 gm/dL (13.0-17.5); Lymphocytes % (A) 7 %; MCH 29.1 pg (25.0-35.0); MCHC 32.4 g/dL (31.0-37.0); MCV 89.7 fL (80.0-100.0); Mean Platelet Volume 6.6; Monocytes # (A) 0.8 k/uL (0-1.0); Monocytes % (A) 6 %; Neutrophils # (A) 12.6 k/uL (1.3-7.7); Neutrophils % (A) 85 %; Platelet Count 161 k/uL (150-450); RBC 4.58 m/uL (4.30-5.90); RDW 13.4 % (11.5-15.5); WBC 14.8 k/uL (3.8-10.6)
[2023-12-25 13:31] VITALS: PULSE 68
[2023-12-25 13:45] LABS: Prothrombin Time 10.8 sec (10.0-12.5)
[2023-12-25 13:51] LABS: Partial Thromboplastin Time 20.4 sec (22.0-30.0)
[2023-12-25] MEDS: CIPROFLOXACIN HCL 500 MG TAB PO STA (14:15)
[2023-12-25 14:23] VITALS: BP 113/56; RESP 16
== END 2023-12-25 14:31 | disposition home or self-care (01) ==
LOC: EC 10:29
CPT/HCPCS: 36415; 80053; 84145; 85025; 85379; 85610; 85730; 96374; 96375; 99284